=== PATIENT | male | born 1950 | race Caucasian/White ===

== ENCOUNTER → 2016-05-05 | Outpatient (CLI) | payer MEDICARE, OTHER ==
--- NOTE | 2016-05-05 12:38 | US ---
EXAMINATION TYPE: US kidneys/renal and bladder DATE OF EXAM: 05/05/2016 12:26 PM COMPARISON: Prior complete abdominal ultrasound September 17, 2013. CLINICAL HISTORY: N18 Chronic Kidney Disease. EXAM MEASUREMENTS: Right Kidney: 9.5 x 4.4 x 4.1 cm Left Kidney: 9.5 x 4.7 x 4.3 cm TECHNOLOGIST IMPRESSION: Right Kidney: no evidence of hydronephrosis or mass Left Kidney: no evidence of hydronephrosis or mass Bladder: not fully distended Bilateral Jets seen: yes There is no evidence for hydronephrosis at this point in time. No masses are identified on images s aved. The urinary bladder is anechoic. Bilateral ureteral jets are seen. IMPRESSION: No hydronephrosis is evident bilaterally.
== END | disposition home or self-care (01) ==
LOC: RADUSWWP 12:09
PROVIDERS: ATTEND Internal Medicine
DX: N18.9 Chronic kidney disease, unspecified (principal)
CPT/HCPCS: 76770

== ENCOUNTER → 2017-04-19 | Outpatient (CLI) | payer MEDICARE, OTHER ==
--- NOTE | 2017-04-19 10:35 | MR ---
EXAMINATION TYPE: MR knee RT wo con DATE OF EXAM: 04/19/2017 COMPARISON: NONE HISTORY: Right knee pain TECHNIQUE: Multiplanar, multisequence imaging of the right knee is performed without IV contrast. FINDINGS: Metallic device overlying the quadriceps tendon creates susceptibility artifact and obscure s surrounding visualization. LATERAL MENISCUS: Anterior and posterior horns are intact without tear. MEDIAL MENISCUS: There is a longitudinal tear of the posterior horn of the lateral meniscus with exte nt into the meniscal body and posterior root. No parameniscal cyst is seen. There is a 3 mm associate d disc extrusion. Anterior horn is of normal signal and morphology. CRUCIATE LIGAMENTS: The anterior and posterior cruciate ligaments are intact and unremarkable. COLLATERAL LIGAMENTS: The medial collateral ligament and lateral collateral ligament complex are inta ct and unremarkable. EXTENSOR MECHANISM: Visualized quadriceps and patellar tendons are intact in their visualized portion s although as stated above there is only partial visualization of the quadriceps tendon due to suscep tibility artifact.. EFFUSION: No significant suprapatellar joint effusion. POPLITEAL CYST: No popliteal/lao cyst. CARTILAGE: There is generalized cartilaginous thinning of the posterior nonweightbearing surface of t he medial femoral condyle. There is a partial thickness defect of the medial posterior cartilage radha uring 6 mm best seen on coronal images. Partial-thickness tibial condyle defect measures 7 mm at the weightbearing surface centrally on PD fat-sat coronal image 20. Lateral compartment cartilage demonstrates mild signal heterogeneity with no focal defect. Similarly patellar cartilage demonstrates mild signal heterogeneity without focal defect. BONE MARROW SIGNAL: No focal abnormal marrow signal is appreciated. IMPRESSION: 1. Longitudinal tear of the posterior horn of the medial meniscus with 3 mm associated disc extrusion and extends into the body as well as the posterior root without root avulsion. 2. Mild tricompartmental arthrosis with partial-thickness cartilaginous defects of the posterior nonw eightbearing surface of the distal medial femoral condyle measuring 6 mm and partial-thickness tibial condylar defect of the weightbearing surface measuring 7 mm.
== END | disposition home or self-care (01) ==
LOC: RADMRIMAIN 09:43
PROVIDERS: ATTEND Orthopaedic Surgery
DX: S83.241A Other tear of medial meniscus, current injury, right knee, initial encounter (principal); M17.11 Unilateral primary osteoarthritis, right knee; M94.8X6 Other specified disorders of cartilage, lower leg; M25.861 Other specified joint disorders, right knee

== ENCOUNTER → 2017-06-07 | Day surgery (SDC) | payer MEDICARE ==
[2017-06-05 13:26] VITALS: BMI 23.7
--- NOTE | 2017-06-06 16:46 | HP ---
HISTORY AND PHYSICAL REASON FOR ADMISSION: Surgery is scheduled for 06/07/17. HISTORY OF PRESENT ILLNESS: Phoenix Amaro is a 67-year-old patient seen with progressive right knee pain. We discussed options for treatment. He elected to proceed with arthroscopy. Consent was obtained. Medical clearance was provided Dr. Rendon. PAST MEDICAL HISTORY: Hypertension, hypercholesterolemia, angina. PAST SURGICAL HISTORY: Left knee arthroscopy. MEDICATIONS: Amlodipine, aspirin, citalopram, pravastatin, [place], lisinopril. ALLERGIES: None reported. SOCIAL HISTORY: Patient denies current tobacco use. PHYSICAL EXAMINATION: Evaluation of right knee range of motion is 0-120 degrees. Tenderness medial joint line. Positive medial Alexus's. Ligaments stable. Hip rotation without pain. Distal neurovascular exam intact. RADIOGRAPHS: Radiographs of the right knee revealed moderate medial compartment osteoarthritis. MRI of the right knee revealed a medial meniscal tear. IMPRESSION: 1. Internal derangement, right knee with medial meniscal tear. 2. Hypertension. 3. Hypercholesterolemia. PLAN: Right knee arthroscopy with partial meniscectomy and debridement. Surgery scheduled for 06/07/2017. MMODL / IJN: [id number] /
[~2017-06-07] MED LIST: BUPIVACAINE (PF) 0.25% 30 ML VIAL INTRAARTIC ONE; DEXAMETHASONE SOD PHOSPHATE 10 MG/ML 1 ML VIAL IV ONE; HYDROcodone/APAP 7.5-325MG 1 EACH TAB PO ONE; LACTATED RINGERS 1,000 ML IV ONE; LACTATED RINGERS 1,000 ML IV SCH; LIDOCAINE 1% 20 ML VIAL (10MG/ML) FOR IV START INTRADERMA PRN; LIDOCAINE 1% INJ 10MG/ML (20 ML MDV) ONE; MIDAZOLAM 2 MG/2 ML VIAL IV PRN; MIDAZOLAM 2 MG/2 ML VIAL ONE; MORPHINE SULFATE 2 MG/ML SYRINGE IV PRN; ONDANSETRON 4 MG/2 ML VIAL IVP ONE; POTASSIUM CHLORIDE ER 10 MEQ TAB.ER.PRT PO ONE; PROPOFOL 10 MG/ML 20 ML VIAL IV ONE; SCOPOLAMINE 1.5MG/72HR PATCH TRANSDERM ONE; SUCCINYLCHOLINE CHLORIDE VIAL 200 MG/10 ML VIAL IV ONE; ceFAZolin IN SWFI 2 GM/20 ML SYRINGE IVP ONE; ePHEDrine SULFATE/0.9% NACL/PF 50 MG/5 ML SYRINGE IV ONE
[2017-06-07 08:19] VITALS: RESP 16
[2017-06-07 09:47] VITALS: TEMP 97.2
--- NOTE | 2017-06-07 09:54 | P.OP ---
Date of Procedure: 06/07/17 Preoperative Diagnosis: Internal derangement right knee Postoperative Diagnosis: 1. Tear medial and lateral meniscus right knee 2. Grade 3 chondromalacia medial femoral condyle right knee 3. Grade 3 chondromalacia medial tibial plateau right knee 4. Grade 2 chondromalacia patella right knee 5. Reactive synovitis medial and suprapatellar compartments right knee Procedure(s) Performed: 1. Arthroscopic partial medial and lateral meniscectomy right knee 2. Arthroscopic chondroplasty medial femoral condyle right knee 3. Arthroscopic chondroplasty medial tibial plateau right knee 4. Arthroscopic chondroplasty patella right knee 5. Arthroscopic partial synovectomy medial and suprapatellar compartments right knee Anesthesia: GETA, local Surgeon: Kory Colin Estimated Blood Loss (ml): 8 Pathology: none sent Condition: stable Disposition: PACU Indications for Procedure: 67-year-old patient seen with progressive right knee pain. After treatment options were discussed, he elected to proceed with arthroscopy. Operative Findings: See description of procedure Description of Procedure: Patient was taken to the operative suite. Patient underwent a general anesthetic by the department of anesthesia. Patient was given preoperative antibiotics. The right lower extremity was placed in a well-padded arthroscopic leg barnes. The right leg was prepped and draped in the normal sterile orthopedic fashion. A lateral parapatellar and suprapatellar incision was made. Trochars were inserted. Arthroscopy was initiated. Suprapatellar pouch revealed diffuse thick reactive synovitis. The patellofemoral joint appeared articulate congruently. There as grade 2 chondromalacia with some osteochondral tears present. The scope was guided into the medial gutter. No loose bodies or plica were identified. The scope was then guided into the medial compartment. A medial parapatellar incision was made. Trocar inserted followed by probe. There was a complex tear involving the posterior horn medial meniscus which did extend into the midbody. There was an area of grade 3 chondromalacia of the posterior medial aspect tibial plateau with osteochondral tears and diffuse grade 3 chondromalacia of the medial femoral condyle with osteochondral tears. There was reactive synovitis anteriorly. I performed a partial medial meniscectomy down to stable tissue. I performed a chondroplasty of the medial femoral condyle and tibial plateau down to stable tissue. I performed a partial synovectomy. The residual meniscus was stable. The residual osteochondral surface was stable. Scope and probe were then guided into the intercondylar notch. Cruciates were identified, probed and found to be stable. The scope and probe were then guided into lateral compartment. There was a radial tear mid body lateral meniscus. There was some mild grade 1 chondromalacia changes lateral compartment but no osteochondral tears were present. No loose bodies or reactive synovitis. I performed a partial lateral meniscectomy down to stable tissue. The residual meniscus was stable. The scope was in guided back into the suprapatellar compartment. I introduced a motorized shaver into the suprapatellar compartment. I debrided some piecemeal fragments of meniscus I encountered. I performed a chondroplasty of the patella down to stable tissue. I performed a partial synovectomy. The shaver was removed. The residual osteochondral surface of the patella was stable. I took one more look on the entire knee, no residual debris. Instruments were now removed from the joint. The joint was infiltrated with .25% Marcaine. Steri-Strips were applied to the portal sites. Sterile dressings were applied. The patient was placed into a ALISTAIR hose. No tourniquet was utilized. The patient was awakened, transferred to a bed and taken to recovery stable satisfactory condition.
[2017-06-07 11:30] VITALS: BP 115/68; PULSE 66
== END | disposition home or self-care (01) ==
LOC: OR 07:48
PROVIDERS: ATTEND Orthopaedic Surgery
DX: M23.321 Other meniscus derangements, posterior horn of medial meniscus, right knee (principal); M23.361 Other meniscus derangements, other lateral meniscus, right knee; M65.861 Other synovitis and tenosynovitis, right lower leg; M94.261 Chondromalacia, right knee; I25.119 Atherosclerotic heart disease of native coronary artery with unspecified angina pectoris; I10 Essential (primary) hypertension; E78.00 Pure hypercholesterolemia, unspecified; E78.5 Hyperlipidemia, unspecified; I25.2 Old myocardial infarction; F17.210 Nicotine dependence, cigarettes, uncomplicated; N28.9 Disorder of kidney and ureter, unspecified; M79.7 Fibromyalgia; Z79.891 Long term (current) use of opiate analgesic; Z88.8 Allergy status to other drugs, medicaments and biological substances; Z79.82 Long term (current) use of aspirin; Z79.899 Other long term (current) drug therapy
CPT/HCPCS: 29880; J2250; J0330; J1100; J2405; J2001; J2270; J2704; J0690

== ENCOUNTER → 2021-10-05 | Outpatient (CLI) | payer MEDICARE ==
--- NOTE | 2021-10-05 12:58 | US ---
EXAMINATION TYPE: US abdomen complete DATE OF EXAM: 10/05/2021 COMPARISON: Ultrasound abdomen 2014 CLINICAL HISTORY: R10.84 GENERALIZED ABD PAIN. EXAM MEASUREMENTS: Liver Length: 12.7 cm Gallbladder Wall: 0.18 cm Spleen: 9.9 cm Right Kidney: 9.7 x 5.1 x 4.4 cm Left Kidney: 8.7 x 4.8 x 4.5 cm Limited due to gas. Pancreas: Obscured Liver: Appears coarse in echotexture Gallbladder: Appears to be anechoic. Evidence for sonographic Newman's sign: No CBD: Obscured Spleen: Slightly limited due to gas. Right Kidney: Hypoechoic-anechoic area seen at mid: 1.3 x 1.0 x 0.9 cm. Left Kidney: No hydronephrosis or masses seen Appears slightly small in size. Upper IVC: Appears wnl Abd Aorta: Limited evaluation, mid and portions of distal aorta not seen. Iliacs not seen. Proximal aorta appears ectatic measuring 2.85 cm in AP and 2.86 cm in transverse. Suboptimal study. No greater than 3.0 cm AAA. Visualized liver is heterogeneous in appearance without discrete mass or ductal dilatation. No shadowing mobile gallstones. Technologist gresham isoechoic 1.3 cm area felt to reflect lobulated cortex midpole level right kidney. No hydronephrosis in either kid rhett. Spleen normal in size. IMPRESSION: Suboptimal study without acute findings identified. Suboptimal evaluation of pancreas not ed.
== END | disposition home or self-care (01) ==
LOC: RADUSWWP 10:52
PROVIDERS: ATTEND Internal Medicine
DX: R10.84 Generalized abdominal pain (principal)
CPT/HCPCS: 76700

== ENCOUNTER 2021-11-03 07:59 | Day surgery (SDC) | payer MEDICARE ==
[~2021-11-03 07:59] MED LIST changes: -BUPIVACAINE (PF) 0.25% 30 ML VIAL INTRAARTIC ONE; -DEXAMETHASONE SOD PHOSPHATE 10 MG/ML 1 ML VIAL IV ONE; -HYDROcodone/APAP 7.5-325MG 1 EACH TAB PO ONE; -LACTATED RINGERS 1,000 ML IV ONE; -LIDOCAINE 1% 20 ML VIAL (10MG/ML) FOR IV START INTRADERMA PRN; -LIDOCAINE 1% INJ 10MG/ML (20 ML MDV) ONE; -MIDAZOLAM 2 MG/2 ML VIAL IV PRN; -MIDAZOLAM 2 MG/2 ML VIAL ONE; -MORPHINE SULFATE 2 MG/ML SYRINGE IV PRN; -ONDANSETRON 4 MG/2 ML VIAL IVP ONE; -POTASSIUM CHLORIDE ER 10 MEQ TAB.ER.PRT PO ONE; -PROPOFOL 10 MG/ML 20 ML VIAL IV ONE; -SCOPOLAMINE 1.5MG/72HR PATCH TRANSDERM ONE; -SUCCINYLCHOLINE CHLORIDE VIAL 200 MG/10 ML VIAL IV ONE; -ceFAZolin IN SWFI 2 GM/20 ML SYRINGE IVP ONE; -ePHEDrine SULFATE/0.9% NACL/PF 50 MG/5 ML SYRINGE IV ONE
[2021-11-03 08:31] VITALS: TEMP 97.9
--- NOTE | 2021-11-03 09:14 | P.GSHP ---
History of Present Illness H&P Date: 11/03/21 Chief Complaint: Screening colonoscopy This a 71-year-old male presents today for screening colonoscopy. Patient denies a significant GI complaints. Past Medical History Past Medical History: Coronary Artery Disease (CAD), Fibromyalgia, Hyperlipidemia, Hypertension, Myocardial Infarction ([place]), Osteoarthritis (OA), Renal Disease Additional Past Medical History / Comment(s): right sided abd. pain recently, c onstipation, decreased kidney function, chronic back pain, leg pain Last Myocardial Infarction Date:: 2002 History of Any Multi-Drug Resistant Organisms: None Reported Past Surgical History: Adenoidectomy, Heart Catheterization With Stent, Tonsillectomy Additional Past Surgical History / Comment(s): L knee surgery Past Anesthesia/Blood Transfusion Reactions: No Reported Reaction Date of Last Stent Placement:: 2002 Past Psychological History: No Psychological Hx Reported Smoking Status: Current every day smoker Past Alcohol Use History: None Reported Additional Past Alcohol Use History / Comment(s): Smokes 2 cigars/day. Past Drug Use History: Marijuana Additional Drug Use History / Comment(s): Smokes marijuana daily - Past Family History Mother Family Medical History: No Reported History Medications and Allergies Home Medications Medication Instructions Recorded Confirmed Type Aspirin 81 mg PO DAILY 06/05/17 11/02/21 History Citalopram Hydrobromide [CeleXA] 40 mg PO DAILY 06/05/17 11/02/21 History Ergocalciferol (Vitamin D2) 50,000 unit PO Q7D 06/05/17 11/02/21 History [Vitamin D2] Lisinopril/Hydrochlorothiazide 1 tab PO DAILY 06/05/17 11/02/21 History [Zestoretic 20-12.5] Nitroglycerin Sl Tabs [Nitrostat] 0.4 mg SUBLINGUAL Q5M PRN 06/05/17 11/02/21 History Pravastatin Sodium [Pravachol] 20 mg PO DAILY 06/05/17 11/02/21 History amLODIPine [Norvasc] 10 mg PO DAILY 06/05/17 11/02/21 History Docusate [Colace] 100 mg PO BID 11/02/21 11/02/21 History Ezetimibe [Zetia] 10 mg PO DAILY 11/02/21 11/02/21 History Ferrous Sulfate [Feosol] 325 mg PO DAILY 11/02/21 11/02/21 History HYDROcodone/APAP 10-325MG [[place] 1 tab PO Q6HR PRN 11/02/21 11/02/21 History 10-325] Pantoprazole [Protonix] 40 mg PO DAILY 11/02/21 11/02/21 History Allergies Allergy/AdvReac Type Severity Reaction Status Date / Time beta blockers Allergy Nausea & Uncoded 11/02/21 11:04 Vomiting, decreased Heart rate Surgical - Exam Vital Signs Temp Pulse Resp BP Pulse Ox 97.9 F 50 L 20 133/80 99 11/03/21 08:30 11/03/21 08:30 11/03/21 08:30 11/03/21 08:30 11/03/21 08:30 - General well developed, well nourished, no distress - Eyes PERRL - ENT normal pinna - Neck no masses - Respiratory normal expansion - Cardiovascular Rhythm: regular - Abdomen Abdomen: soft, non tender Assessment and Plan Assessment: We'll perform screening colonoscopy
[2021-11-03] MEDS ORDERED: GLUCAGON 1 MG/ML VIAL ONE (09:16)
[2021-11-03] MEDS ORDERED: PROPOFOL 10 MG/ML 20 ML VIAL IV ONE (09:16)
--- NOTE | 2021-11-03 09:36 | P.OP ---
Date of Procedure: 11/03/21 Preoperative Diagnosis: Screening colonoscopy Postoperative Diagnosis: Diverticulosis Tortuous colon Rectal biopsy Procedure(s) Performed: Colonoscopy Anesthesia: MAC Surgeon: Mark Rush Pathology: other (rectl polyp) Description of Procedure: The patient's placed on the endoscopy table in the lateral position. He received IV sedation. Digital rectal exam was performed which revealed no abnormalities. The prostate was symmetrical without nodules. The flexible colonoscope was then placed patient anus passed the rectum. In the rectum there was a small sessile polyp. This is removed with the cold forcep. The scope was then advanced. Scope advanced beyond the left colon secondary to tortuosity valve. This point scope withdrawn. A pediatric colonoscope was placed patient anus and passed throughout the colon however it this pediatric colonoscope could not be passed due to tortuosity the valve. Scope was withdrawn. The visualized ascending colon appeared normal. In the sigmoid colon there was diverticular changes noted. The scope was brought back the rectum and this appeared normal. Scope withdrawn for patient. Patient was scheduled for a barium enema to evaluate the proximal colon.
[2021-11-03 09:43] VITALS: RESP 18
[2021-11-03 10:00] VITALS: BP 119/67; PULSE 50
== END 2021-11-03 10:13 | disposition home or self-care (01) ==
LOC: ORWHC2ENDO 07:59
PROVIDERS: ATTEND Surgery
DX: Z12.11 Encounter for screening for malignant neoplasm of colon (principal); K57.30 Diverticulosis of large intestine without perforation or abscess without bleeding; K63.89 Other specified diseases of intestine; I25.10 Atherosclerotic heart disease of native coronary artery without angina pectoris; Z95.5 Presence of coronary angioplasty implant and graft; E78.5 Hyperlipidemia, unspecified; I25.2 Old myocardial infarction; I12.9 Hypertensive chronic kidney disease with stage 1 through stage 4 chronic kidney disease, or unspecified chronic kidney disease; N18.9 Chronic kidney disease, unspecified; M79.7 Fibromyalgia; Z88.8 Allergy status to other drugs, medicaments and biological substances; F17.290 Nicotine dependence, other tobacco product, uncomplicated; Z79.82 Long term (current) use of aspirin; Z79.899 Other long term (current) drug therapy
CPT/HCPCS: 88305; 45380; J1610; J2704

== ENCOUNTER → 2021-11-14 | Outpatient (CLI) | payer MEDICARE ==
--- NOTE | 2021-11-14 12:29 | FL ---
EXAMINATION TYPE: FL barium enema DATE OF EXAM: 11/14/2021 COMPARISON: NONE HISTORY: Incomplete colonoscopy with polyp and biopsies taken. TECHNIQUE: A double contrast barium enema study is performed. A total of 1.09 minutes of fluoroscop ic time was utilized during procedure. Patient given 1000 cc polibar barium. FINDINGS: Diesel Engine I Pipe Fitter view of the abdomen shows overall non-obstructive bowel gas pattern. No evidence of any mass or polyp, obstructing or constricting lesion throughout the colon. Scattered colonic diverticulosis most prominently involving the sigmoid colon. There is some tortuosity of the sigmoid colon and splenic flexure. Appendix was filled and appeared normal on post evacuation imaging. IMPRESSION: Scattered colonic diverticulosis. No visualized obstructing mass.
== END | disposition home or self-care (01) ==
LOC: RADFLMAIN 08:50
PROVIDERS: ATTEND Surgery
DX: K57.30 Diverticulosis of large intestine without perforation or abscess without bleeding (principal)
CPT/HCPCS: 74270

== ENCOUNTER → 2021-12-07 | Outpatient (CLI) | payer MEDICARE ==
[2021-12-07 18:17] LABS: Basophils # (A) 0.09 X 10*3/uL (0.00-0.10); Basophils % (A) 1.4 %; Eosinophils % (A) 10.8 %; HCT 39.8 % (39.6-50.0); HGB 12.7 g/dL (13.0-17.0); Immature Grans, Automated 0.3 %; Lymphocytes # (A) 1.89 X 10*3/uL (0.90-5.00); Lymphocytes % (A) 29.1 %; MCHC 31.9 g/dL (32.0-37.0); MCV 94.1 fL (80.0-97.0); Mean Platelet Volume 11.1 fL (9.5-12.2); Monocytes # (A) 0.59 X 10*3/uL (0.20-1.00); Monocytes % (A) 9.1 %; NRBC Per 100 WBC 0 /100 WBCS (0.0-0.0); Neutrophils # (A) 3.21 X 10*3/uL (1.80-7.70); Neutrophils % (A) 49.3 %; Platelet Count 313 X 10*3/uL (140-440); RBC 4.23 X 10*6/uL (4.40-5.60); RDW 11.8 % (11.5-14.5)
[2021-12-07 18:34] LABS: Anion Gap 9.3 mmol/L (10.00-18.00); Carbon Dioxide 27.8 mmol/L (20.0-27.5); Potassium 5.3 mmol/L (3.5-5.5)
== END | disposition home or self-care (01) ==
LOC: LABPAT 11:01
PROVIDERS: ATTEND Surgery
DX: Z01.818 Encounter for other preprocedural examination (principal); Z01.812 Encounter for preprocedural laboratory examination; K57.32 Diverticulitis of large intestine without perforation or abscess without bleeding
CPT/HCPCS: 80051; 85025; 93005

== ENCOUNTER 2021-12-14 10:35 | Inpatient (IN) | payer MEDICARE ==
[2021-12-13 10:10] VITALS: BMI 22.5
[~2021-12-14 10:35] MED LIST changes: +ACETAMINOPHEN TAB 500 MG TAB PO PRN; +DEXAMETHASONE SOD PHOSPHATE 4 MG/ML 1 ML VIAL IV ONE; +HEPARIN SODIUM,PORCINE/PF 5,000 UNIT/0.5 ML SYRINGE SQ PRN; +HYDROmorphone 0.5 MG/0.5 ML SYRINGE IVP PRN; -LACTATED RINGERS 1,000 ML IV SCH; +LIDOCAINE 1% (10MG/ML) FOR IV START INTRADERMA PRN; +ONDANSETRON 4 MG/2 ML VIAL IVP ONE; +metroNIDAZOLE-NS PMX 500 MG in SALINE 1 100ML.BAG IVPB PRN
[2021-12-14] MEDS ORDERED: ALVIMOPAN 12 MG CAPSULE PO ONE (11:43)
[2021-12-14] MEDS ORDERED: MELOXICAM 7.5 MG TAB PO ONE (11:43)
[2021-12-14] MEDS: LACTATED RINGERS 1,000 ML IV SCH (11:52)
--- NOTE | 2021-12-14 11:55 | P.GSHP ---
History of Present Illness H&P Date: 12/14/21 Chief Complaint: Diverticulitis Is a 71-year-old male with history of diverticula is. Patient resents today for low anterior section. Past Medical History Past Medical History: Coronary Artery Disease (CAD), Fibromyalgia, Hyperlipidem ia, Hypertension, Myocardial Infarction ([place]), Osteoarthritis (OA), Renal Disease Additional Past Medical History / Comment(s): diverticulitis,right sided abd. pain, constipation, decreased kidney function, chronic back pain, leg pain Last Myocardial Infarction Date:: 2002 History of Any Multi-Drug Resistant Organisms: None Reported Past Surgical History: Adenoidectomy, Heart Catheterization With Stent, Tonsillectomy Additional Past Surgical History / Comment(s): L knee surgery Past Anesthesia/Blood Transfusion Reactions: No Reported Reaction Additional Past Anesthesia/Blood Transfusion Reaction / Comment(s): no hx blood transfusion Date of Last Stent Placement:: 2002 Smoking Status: Current every day smoker - Past Family History Mother Family Medical History: No Reported History Medications and Allergies Home Medications Medication Instructions Recorded Confirmed Type Aspirin 81 mg PO DAILY 06/05/17 12/13/21 History Citalopram Hydrobromide [CeleXA] 40 mg PO QAM 06/05/17 12/13/21 History Ergocalciferol (Vitamin D2) 50,000 unit PO Q7D 06/05/17 12/14/21 History [Vitamin D2] Lisinopril/Hydrochlorothiazide 1 tab PO QAM 06/05/17 12/13/21 History [Zestoretic 20-12.5] Nitroglycerin Sl Tabs [Nitrostat] 0.4 mg SUBLINGUAL Q5M PRN 06/05/17 12/13/21 History Pravastatin Sodium [Pravachol] 20 mg PO DAILY 06/05/17 12/14/21 History amLODIPine [Norvasc] 10 mg PO HS 06/05/17 12/14/21 History Docusate [Colace] 100 mg PO BID 11/02/21 12/14/21 History Ezetimibe [Zetia] 10 mg PO DAILY 11/02/21 12/14/21 History Ferrous Sulfate [Feosol] 325 mg PO DAILY 11/02/21 12/14/21 History HYDROcodone/APAP 10-325MG [Erin 1 tab PO Q6HR PRN 11/02/21 12/14/21 History 10-325] Pantoprazole [Protonix] 40 mg PO QAM 11/02/21 12/14/21 History Allergies Allergy/AdvReac Type Severity Reaction Status Date / Time beta blockers Allergy Nausea & Uncoded 12/14/21 11:11 Vomiting, decreased Heart rate to rate of 35 Surgical - Exam Vital Signs Temp Pulse Resp BP Pulse Ox 97.0 F L 69 18 144/84 98 12/14/21 11:25 12/14/21 11:25 12/14/21 11:25 12/14/21 11:25 12/14/21 11:25 - General well developed, well nourished, no distress - Eyes PERRL - ENT normal pinna - Neck no masses - Respiratory normal expansion - Cardiovascular Rhythm: regular - Abdomen Mild left lower quadrant pain Abdomen: soft Assessment and Plan Assessment: History of diverticulitis. We'll perform low anterior resection. Patient aware the risk of anastomotic leak, bleeding, infection and possible colostomy.
[2021-12-14] MEDS ORDERED: MIDAZOLAM 2 MG/2 ML VIAL IVP ONE (12:13)
[2021-12-14] MEDS ORDERED: fentaNYL (PF) 50 MCG/ML 2 ML AMP IVP ONE (12:13)
[2021-12-14] MEDS ORDERED: ROCURONIUM 10 MG/ML (5 ML VIAL) IV ONE (12:34)
[2021-12-14] MEDS ORDERED: GLYCOPYRROLATE 0.2 MG/ML 2 ML VIAL ONE (12:34)
[2021-12-14] MEDS ORDERED: fentaNYL (PF) 50 MCG/ML 2 ML AMP ONE (12:34)
[2021-12-14] MEDS ORDERED: SUCCINYLCHOLINE CHLORIDE 200 MG/10 ML VIAL IV ONE (12:34)
[2021-12-14] MEDS ORDERED: MIDAZOLAM 2 MG/2 ML VIAL ONE (12:34)
[2021-12-14] MEDS ORDERED: HYDROmorphone (PF) 1 MG/ML ONE (12:34)
[2021-12-14] MEDS ORDERED: NEOSTIGMINE 1 MG/ML 10 ML VIAL ONE (12:34)
[2021-12-14] MEDS ORDERED: ePHEDrine 50 MG/ML 1 ML VIAL ONE (12:34)
[2021-12-14] MEDS ORDERED: HEPARIN SODIUM,PORCINE 5,000 UNIT/ML 1 ML VIAL ONE (12:34)
[2021-12-14] MEDS ORDERED: PROPOFOL 10 MG/ML 20 ML VIAL IV ONE (12:34)
[2021-12-14] MEDS ORDERED: NALOXONE 0.4 MG/ML 1 ML VIAL IV PRN (12:48)
--- NOTE | 2021-12-14 13:11 | P.ANPRN ---
Procedure Note - Anesthesia - Epidural/Spinal Epidural Continuous Time Out Performed: Yes Date of Procedure: 12/14/21 Procedure Start Time: 12:16 Procedure Stop Time: 12:24 Location of Patient: PreOp Indication: Acute Post-Operative Pain, Requested by Surgeon Sedation Type: Sedate with meaningful contact maintained Preparation: Sterile Dressing Number of Attempts: 1 Position: Sitting Catheter Depth at Skin (cm): 10 Catheter: Indwelling Needle Guage: 18, 21 Injectate: Test Dose Lidocaine1.5% w/1:200,000 epi Blood Aspirated: No Pain Paresthesia on Injection Noted: No Events: Uneventful and Well Tolerated (RUPALI to NS.Epidural space at 4 cm depth, catheter taped at 10 cm.)
--- NOTE | 2021-12-14 13:30 | P.OP ---
Date of Procedure: 12/14/21 Preoperative Diagnosis: Diverticulitis Postoperative Diagnosis: Diverticulitis Procedure(s) Performed: Low anterior resection Anesthesia: TELMA Surgeon: Mark Rush Estimated Blood Loss (ml): 25 Pathology: other (Sigmoid colon) Condition: stable Disposition: PACU Description of Procedure: DESCRIPTION OF PROCEDURE: The patient was placed on the operating table in the supine position. Patient received a general anesthesia. Patient was then placed in the dorsal lithotomy position. The patients abdomen was prepped and draped in the usual sterile fashion. Through a low midline incision, the abdomen was entered. The Ernesto wound protector was used. The Bookwalter retractor was placed in the wound. The stomach appeared normal. The small bowel appeared normal. The liver appeared normal. The right colon and transverse colon appeared normal. On the left colon, there was an extensive diverticulosis noted. The sigmoid colon was then mobilized by dividing the white line of Toldt with electrocautery. At this point, the proximal sigmoid colon was transected with a GI stapler after a window had been made in the mesentery. The distal sigmoid colon was then dissected. Mesentery was taken down with the Enseal device. The rectum was then transected with the contour stapler. Next, a enterotomy is made in the proximal colon. The anvil for the EEA stapler was placed into the colon. The colon was then transected with the SARBJIT stapler. And then the anvil spike was driven through the staple line. Using the Enseal device the mesentery the bowel was divided and the specimen sent to pathology. The EEA stapler device was then placed in the patient'ss anus and passed into the rectum. The nail for the EEA was then brought out through the distal rectum and then attached to the anvil. The EEA stapler device was then fired. The anastomosis was inspected. There were 2 good donuts of tissue removed from the EEA stapler. The anastomosis was then tested under water and there was no air leak seen. At this point the abdomen was then irrigated. There was no bleeding seen. The patient had a pelvic appendix. His HIDA perform an incidental appendectomy. The mesentery of the appendix was divided with the Enseal device. And then using the GI stapler Was performed. The omentum was visualized. There appeared to be nonviable portion of omentum. This was decided with the Enseal device. This was sent to pathology. The fascia was closed clean instruments. The fascia was then closed with double stranded #1 PDS. The skin was closed with silvino. The patient tolerated the procedure well.
[2021-12-14] MEDS ORDERED: LACTATED RINGERS 1,000 ML IV ONE (13:31)
[2021-12-14] MEDS: ROPIVACAINE 250 MG, HYDROMORPHONE (PF) 5 MG in SODIUM CHLORIDE 0.9% 200 ML EPIDURAL PRN ×2 (15:07→16:26)
--- NOTE | 2021-12-15 06:48 | P.PN ---
Progress Note - Text Progress Note Date: 12/15/21 The patient has a lumbar epidural catheter for postoperative pain control. Postop day #( 1 ), status post Low anterior resection The patient is doing well. The pain is mild but more on the right side of the midline. The patient has slight numbness in the left thigh. It seems that he has 1 sided block. I pulled the epidural catheter by 1 cm to try to equalize the spread of the local anesthetic on both sides of midline There are no signs of infection around the epidural catheter skin entry site. We will continue the epidural infusion of local anesthetics as per protocol.
[2021-12-15] MEDS: LACTATED RINGERS 1,000 ML IV SCH (07:48)
[2021-12-15] MEDS ORDERED: DEXTROSE 5%-0.45% NACL 1,000 ML IV SCH (08:00)
[2021-12-15 09:14] LABS: Basophils % (A) 0 %; Eosinophils % (A) 0 %; HGB 11.9 gm/dL (13.0-17.5); Lymphocytes % (A) 7 %; MCHC 31.4 g/dL (31.0-37.0); MCV 95.8 fL (80.0-100.0); Mean Platelet Volume 7.8; Monocytes % (A) 7 %; Neutrophils # (A) 12.3 k/uL (1.3-7.7); Neutrophils % (A) 83 %; Platelet Count 244 k/uL (150-450); RBC 3.97 m/uL (4.30-5.90); RDW 11.8 % (11.5-15.5); WBC 14.8 k/uL (3.8-10.6)
[2021-12-15] MEDS: HEPARIN SODIUM,PORCINE/PF 5,000 UNIT/0.5 ML SYRINGE SQ SCH ×2 (09:29→20:13)
[2021-12-15] MEDS: FAMOTIDINE 20 MG/2 ML VIAL IV SCH (09:29)
[2021-12-15 09:31] LABS: African American GFR (CKD) 51 (>60 ml/min/1.73 sqM); Anion Gap 8 mmol/L; Blood Urea Nitrogen 20 mg/dL (9-20); Calcium 8.5 mg/dL (8.4-10.2); Carbon Dioxide 24 mmol/L (22-30); Chloride 105 mmol/L (98-107); Glucose 111 mg/dL (74-99); Non-African American GFR(CKD) 44 (>60 ml/min/1.73 sqM); Potassium 4.5 mmol/L (3.5-5.1); Sodium 137 mmol/L (137-145)
[2021-12-15 09:48] LABS: Glucose,Whole Blood 115 mg/dL (70-110)
[2021-12-15] MEDS: ONDANSETRON 4 MG/2 ML VIAL IVP PRN ×2 (10:01→18:17)
--- NOTE | 2021-12-15 11:50 | P.PN ---
Subjective Progress Note Date: 12/15/21 CHIEF COMPLAINT: Diverticulitis HISTORY OF PRESENT ILLNESS: Postoperative day #1 status post lower anterior resection. Patient has epidural in place. He reports that his pain is controlled. He does report pain at incision site. He is lying in bed comfortably. Denies any nausea vomiting. No bowel activity. Afebrile. WBC 14.8 hemoglobin 11.9 and platelets 244 creatinine 1.58 potassium 4.5 PHYSICAL EXAM: VITAL SIGNS: Reviewed. GENERAL: Well-developed in no acute distress. HEENT: No sclera icterus. Extraocular movements grossly intact. Moist buccal mucosa. Head is atraumatic, normocephalic. ABDOMEN: Soft. Nondistended. minimal pain at incision site. Surgical dressing clean dry and intact NEUROLOGIC: Alert and oriented. Cranial nerves II through XII grossly intact. ASSESSMENT: 1. Diverticulitis status post lower anterior resection PLAN: -Keep patient nothing by mouth except for ice chips -Change abdominal dressing to OptiFoam silver -Continue epidural for pain control -Continue Cohen catheter -Continue IV fluids -Incentive spirometer ordered -Encouraged patient to increase activity level -GI prophylaxis Pepcid and DVT prophylaxis subcu heparin Physician Relocation Specialist note has been reviewed by physician. Signing provider agrees with the documented findings, assessment, and plan of care. Objective - Vital Signs Vital signs: Vital Signs Temp 97.8 F 12/15/21 07:58 Pulse 69 12/15/21 07:58 Resp 17 12/15/21 07:58 BP 106/62 12/15/21 07:58 Pulse Ox 96 12/15/21 07:58 FiO2 Intake & Output 12/14/21 12/15/21 12/15/21 18:59 06:59 18:59 Intake Total 1550 119.583 Output Total 185 100 Balance 1365 -100 119.583 Weight 71.2 kg Intake: IV 1550 Intake, IV Titration 119.583 Amount Ropivacaine 250 mg 119.583 Hydromorphone (Pf) 5 mg In Sodium Chloride 0.9% 200 ml @ Per Protocol EPIDURAL .Q0M PRN Rx#: [id number] Output: Urine 160 100 Estimated Blood Loss 25 Other: Voiding Method Indwelling Catheter Indwelling Catheter - Labs CBC & Chem 7: 12/15/21 08:56 12/15/21 08:56 Labs: Abnormal Lab Results - Last 24 Hours (Table) 12/15/21 12/15/21 12/15/21 Range/Units 08:56 08:56 09:46 WBC 14.8 H (3.8-10.6) k/uL RBC 3.97 L (4.30-5.90) m/uL Hgb 11.9 L (13.0-17.5) gm/dL Hct 38.0 L (39.0-53.0) % Neutrophils # 12.3 H (1.3-7.7) k/uL Creatinine 1.58 H (0.66-1.25) mg/dL Glucose 111 H (74-99) mg/dL POC Glucose (mg/dL) 115 H (70-110) mg/dL
[2021-12-15] MEDS: ROPIVACAINE 250 MG, HYDROMORPHONE (PF) 5 MG in SODIUM CHLORIDE 0.9% 200 ML EPIDURAL PRN (14:13)
[2021-12-15] MEDS: D5-0.45% NACL WITH KCL 20MEQ/L 1,000 ML IV SCH (14:14)
[2021-12-15] MEDS ORDERED: NITROGLYCERIN SL TABS 0.4 MG TAB SUBLINGUAL PRN (16:47)
[2021-12-15] MEDS: DOCUSATE 100 MG CAP PO SCH (20:13)
[2021-12-15] MEDS: amLODIPine 10 MG TAB PO SCH (20:13)
[2021-12-16] MEDS: D5-0.45% NACL WITH KCL 20MEQ/L 1,000 ML IV SCH ×3 (01:20→21:26)
[2021-12-16] MEDS: LACTATED RINGERS 1,000 ML IV SCH (06:07)
[2021-12-16] MEDS: FAMOTIDINE 20 MG/2 ML VIAL IV SCH (07:50)
[2021-12-16] MEDS: HEPARIN SODIUM,PORCINE/PF 5,000 UNIT/0.5 ML SYRINGE SQ SCH ×2 (07:50→20:36)
[2021-12-16] MEDS: CITALOPRAM HYDROBROMIDE 20 MG TAB PO SCH (07:51)
[2021-12-16] MEDS: FERROUS SULFATE 325 MG TAB PO SCH (07:51)
[2021-12-16] MEDS: DOCUSATE 100 MG CAP PO SCH ×2 (07:52→20:34)
[2021-12-16] MEDS: PANTOPRAZOLE 40 MG TABLET PO SCH (07:52)
[2021-12-16] MEDS: LISINOPRIL-HCTZ 20-12.5 MG 1 EACH TAB PO SCH (07:53)
--- NOTE | 2021-12-16 08:20 | P.PN ---
Progress Note - Text Date: 12/16/2021 Time: 07:13 The patient is status post, low anterior resection, postoperative day number 2. The patient has no complaints of nausea vomiting or headache. The patient does not complain of any lower extremity numbness or weakness. The epidural is running at 6 mL per hour. VAS 1-10. The epidural will be maintained and ad justed as needed.
[2021-12-16] MEDS ORDERED: ERGOCALCIFEROL 1,250 MCG (50,000 IU) CAPSULE PO SCH (09:00)
[2021-12-16] MEDS ORDERED: EZETIMIBE 10 MG TAB PO SCH (09:00)
[2021-12-16] MEDS ORDERED: PRAVASTATIN SODIUM 20 MG TAB PO SCH (09:00)
[2021-12-16] MEDS ORDERED: ASPIRIN 81 MG PO SCH (09:00)
[2021-12-16 09:52] LABS: African American GFR (CKD) 59 (>60 ml/min/1.73 sqM); Anion Gap 6 mmol/L; Blood Urea Nitrogen 14 mg/dL (9-20); Calcium 8.3 mg/dL (8.4-10.2); Carbon Dioxide 27 mmol/L (22-30); Chloride 106 mmol/L (98-107); Glucose 107 mg/dL (74-99); Non-African American GFR(CKD) 51 (>60 ml/min/1.73 sqM); Potassium 4.6 mmol/L (3.5-5.1); Sodium 139 mmol/L (137-145)
[2021-12-16 10:16] LABS: Basophils % (A) 0 %; Eosinophils # (A) 0.3 k/uL (0-0.7); Eosinophils % (A) 4 %; HCT 37.8 % (39.0-53.0); HGB 12.4 gm/dL (13.0-17.5); Lymphocytes # (A) 1.5 k/uL (1.0-4.8); Lymphocytes % (A) 16 %; MCH 31.6 pg (25.0-35.0); MCHC 32.8 g/dL (31.0-37.0); MCV 96.4 fL (80.0-100.0); Mean Platelet Volume 8.6; Monocytes # (A) 0.8 k/uL (0-1.0); Monocytes % (A) 8 %; Neutrophils # (A) 6.8 k/uL (1.3-7.7); Neutrophils % (A) 71 %; Platelet Count 229 k/uL (150-450); RBC 3.92 m/uL (4.30-5.90); RDW 12.1 % (11.5-15.5); WBC 9.6 k/uL (3.8-10.6)
--- NOTE | 2021-12-16 13:06 | CDI ---
Documentation Clarification Form Date: 12/16/2021 12:57:33 PM From: Shira ConnerPerezKACY haley, CCDS Admit Date: 12/14/2021 10:39:00 AM Patient Name: Phoenix Amaro Visit Number: [id number] Discharge Date: ATTENTION: The Clinical Documentation Specialists (CDI) and [facility] Coding Staff appreciate your assistance in clarifying documentation. Please respond to the clarification below the line at the bottom and electronically sign. The CDI & [facility] Coding staff will review the response and follow-up if needed. Please note: Queries are made part of the Legal Health Record. If you have any questions, please contact the author of this message via ITS. Dr. Mark Rush: The following is documented in the 12/14 Surgeon's History & Physical under Past Medical History: Decreased kidney function. Additional clarification regarding the patient's history of decreased kidney function is requested. History/Risk Factors per the H/P: CAD , MO and stent, Fibromyalgia, Hyperlipidemia, Hypertension, Osteoarthritis, Renal Disease: decreased kidney function, Constipation, Chronic Back Pain, Leg pain. Clinical Indicators: Patient presented for elective Low Anterior Resection for Diverticulitis. 12/14 Procedure: Low Anterior Resection w/general anesthesia. LAB: BUN: 12/15: 20. 12/16: 14. Creatinine: 12/15: 1.58. 12/16: 1.41 GFR: 12/15: 44. 12/16: 51 Historical GFR: 09/04/2013: 58 Treatment 12/14: PO Tylenol 1,000 mg x1/prn preop, IV Cefazolin 50 mls @ 100 mls/hr x1/prn preop, Heparin 5,000 units sq/x1/prn preop, IV Flagyl 100 mls @ 100 mls/hr x1/pre preop, IV Decadron 4 mg x1, IV Zofran 4 mg x1, IV Dilaudid 0.5 mg q5M/prn. Please clarify the Stage of the CKD, if known: [ ] CKD Stage 3 (GFR 30-59) [ ] CKD Stage 3a (GFR 45-59) [ ] CKD Stage 3b (GFR 30-44) [ ] Other, please specify [ ] Unable to determine (Template Last revised: May 2020) MTDD
--- NOTE | 2021-12-16 13:21 | P.PN ---
Subjective Progress Note Date: 12/16/21 CHIEF COMPLAINT: Diverticulitis HISTORY OF PRESENT ILLNESS: Postoperative day #2 status post lower anterior resection. Patient has epidural in place. He reports that his pain is controlled. He did report some mild nausea this morning has improved. Denies any bowel activity. He is nothing by mouth. Afebrile. WBC is down from 14.8- 9.6 hemoglobin 12.4 creatinine 1.41 Patient seen and examined with Dr. Rush PHYSICAL EXAM: VITAL SIGNS: Reviewed. GENERAL: Well-developed in no acute distress. HEENT: No sclera icterus. Extraocular movements grossly intact. Moist buccal mucosa. Head is atraumatic, normocephalic. ABDOMEN: Soft. Nondistended. minimal pain at incision site. Surgical carmelo ssing clean dry and intact NEUROLOGIC: Alert and oriented. Cranial nerves II through XII grossly intact. ASSESSMENT: 1. Diverticulitis status post lower anterior resection PLAN: -Keep patient nothing by mouth except for ice chips -Continue epidural for pain control -Continue Cohen catheter -Continue IV fluids -Medical service on consult for medical management -Incentive spirometer ordered -Encouraged patient to increase activity level -GI prophylaxis Pepcid and DVT prophylaxis subcu heparin Physician Rubber Block Layer note has been reviewed by physician. Signing provider agrees with the documented findings, assessment, and plan of care. Objective - Vital Signs Vital signs: Vital Signs Temp 98.4 F 12/16/21 08:00 Pulse 59 L 12/16/21 08:00 Resp 17 12/16/21 08:00 BP 124/76 12/16/21 08:00 Pulse Ox 93 L 12/16/21 08:00 FiO2 Intake & Output 12/15/21 12/16/21 12/16/21 18:59 06:59 18:59 Intake Total 1647.783 Output Total 400 1625 650 Balance 1247.783 -1625 -650 Intake: Intake, IV Titration 1647.783 Amount Dextrose 5%-0.45% NaCl 1, 1500 000 ml @ 125 mls/hr IV . Q8H [facility] Rx#:[id number] Ropivacaine 250 mg 147.783 Hydromorphone (Pf) 5 mg In Sodium Chloride 0.9% 200 ml @ Per Protocol EPIDURAL .Q0M PRN Rx#: [id number] Output: Urine 400 1625 650 Uretheral (Cohen) 650 Other: Voiding Method Indwelling Catheter Indwelling Catheter Indwelling Catheter - Labs CBC & Chem 7: 12/16/21 09:28 12/16/21 09:28 Labs: Abnormal Lab Results - Last 24 Hours (Table) 12/16/21 12/16/21 Range/Units 09: 09:28 RBC 3.92 L (4.30-5.90) m/uL Hgb 12.4 L (13.0-17.5) gm/dL Hct 37.8 L (39.0-53.0) % Creatinine 1.41 H (0.66-1.25) mg/dL Glucose 107 H (74-99) mg/dL Calcium 8.3 L (8.4-10.2) mg/dL
--- NOTE | 2021-12-16 13:35 | P.CONS ---
History of Present Illness - Reason for Consult Consult date: 12/15/21 - History of Present Illness Phoenix Amaro, he is a 71-year-old male who was admitted to [facility] by Dr. Rush, and underwent low anterior resection of the sigmoid colon due to diverticulitis. Patient was admitted to medical floor postoperatively. Medical consultation was requested for management while hospitalized. Patient has a known history of hypertension, hyperlipidemia, osteoarthritis, coronary artery disease with history of myocardial infarction in the past, history of diverticulosis with diverticulitis, and history of chronic back pain. Past Medical History Past Medical History: Coronary Artery Disease (CAD), Fibromyalgia, Hyperlipidemia, Hypertension, Myocardial Infarction (MA), Osteoarthritis (OA), Renal Disease Additional Past Medical History / Comment(s): diverticulitis,right sided abd. pain, constipation, decreased kidney function, chronic back pain, leg pain Last Myocardial Infarction Date:: 2002 History of Any Multi-Drug Resistant Organisms: None Reported Past Surgical History: Adenoidectomy, Heart Catheterization With Stent, To nsillectomy Additional Past Surgical History / Comment(s): L knee surgery Past Anesthesia/Blood Transfusion Reactions: No Reported Reaction Additional Past Anesthesia/Blood Transfusion Reaction / Comm: no hx blood transfusion Date of Last Stent Placement:: 2002 Smoking Status: Current every day smoker - Past Family History Mother Family Medical History: No Reported History Medications and Allergies Home Medications Medication Instructions Recorded Confirmed Type Aspirin 81 mg PO DAILY 06/05/17 12/13/21 History Citalopram Hydrobromide [CeleXA] 40 mg PO QAM 06/05/17 12/13/21 History Ergocalciferol (Vitamin D2) 50,000 unit PO Q7D 06/05/17 12/14/21 History [Vitamin D2] Lisinopril/Hydrochlorothiazide 1 tab PO QAM 06/05/17 12/13/21 History [Zestoretic 20-12.5] Nitroglycerin Sl Tabs [Nitrostat] 0.4 mg SUBLINGUAL Q5M PRN 06/05/17 12/13/21 History Pravastatin Sodium [Pravachol] 20 mg PO DAILY 06/05/17 12/14/21 History amLODIPine [Norvasc] 10 mg PO HS 06/05/17 12/14/21 History Docusate [Colace] 100 mg PO BID 11/02/21 12/14/21 History Ezetimibe [Zetia] 10 mg PO DAILY 11/02/21 12/14/21 History Ferrous Sulfate [Feosol] 325 mg PO DAILY 11/02/21 12/14/21 History HYDROcodone/APAP 10-325MG [[place] 1 tab PO Q6HR PRN 11/02/21 12/14/21 History 10-325] Pantoprazole [Protonix] 40 mg PO QAM 11/02/21 12/14/21 History Allergies Allergy/AdvReac Type Severity Reaction Status Date / Time beta blockers Allergy Nausea & Uncoded 12/14/21 11:11 Vomiting, decreased Heart rate to rate of 35 Physical Exam Vitals: Vital Signs Temp Pulse Pulse Resp BP Pulse Ox 12/15/21 14:00 98.1 F 66 18 133/77 66 L 12/15/21 07:58 97.8 F 69 17 106/62 96 12/15/21 01:44 98.3 F 74 18 100/62 94 L 12/14/21 20:00 74 18 12/14/21 19:36 98.1 F 81 18 109/70 96 12/14/21 17:25 79 14 111/69 94 L 12/14/21 17:10 97.0 F L 78 14 111/71 95 12/14/21 16:55 97.1 F L 75 14 111/69 94 L Intake and Output 12/15/21 12/15/21 12/15/21 06:59 14:59 22:59 Intake Total 147.783 Output Total 100 Balance -100 147.783 Intake: Intake, IV Titration 147.783 Amount Ropivacaine 250 mg 147.783 Hydromorphone (Pf) 5 mg In Sodium Chloride 0.9% 200 ml @ Per Protocol EPIDURAL .Q0M PRN Rx#: [id number] Output: Urine 100 Other: Voiding Method Indwelling Catheter In general patient is alert and oriented x 3 in no distress HEENT head normocephalic and atraumatic Neck is supple no JVD no goiter no lymphadenopathy no carotid bruit Chest examination is clear to auscultation no crackles no wheezing Cardiac exam reveals regular heart sounds S1 and S2 no gallops no murmurs Abdomen is soft nontender no organomegaly with normal bowel sounds Extremity exam reveals no edema no cyanosis or clubbing Neurological examination reveals no gross focal deficits Results CBC & Chem 7: 12/16/21 09:28 12/16/21 09:28 Labs: Abnormal Lab Results - Last 24 Hours (Table) 12/15/21 12/15/21 12/15/21 Range/Units 08:56 08:56 09:46 WBC 14.8 H (3.8-10.6) k/uL RBC 3.97 L (4.30-5.90) m/uL Hgb 11.9 L (13.0-17.5) gm/dL Hct 38.0 L (39.0-53.0) % Neutrophils # 12.3 H (1.3-7.7) k/uL Creatinine 1.58 H (0.66-1.25) mg/dL Glucose 111 H (74-99) mg/dL POC Glucose (mg/dL) 115 H (70-110) mg/dL Assessment and Plan Plan: Diverticulitis, status post low anterior resection of the sigmoid colon on Underlying history of hypertension Underlying history of hyperlipidemia Underlying history of coronary artery disease Underlying history of osteoarthritis At this time patient is stable he is alert and oriented and denies any complaints Home medications reviewed and reordered For DVT prophylaxis patient is on subcu heparin for GI prophylaxis IV Pepcid Recheck labs in a.m. Will follow closely
--- NOTE | 2021-12-16 14:03 | P.PN ---
Subjective Progress Note Date: 12/16/21 Phoenix Amaro, he is a 71-year-old male who was admitted to [facility] by Dr. Rush, and underwent low anterior resection of the sigmoid colon due to diverticulitis. Patient was admitted to medical floor postoperatively. Medical consultation was requested for management while hospitalized. Patient has a known history of hypertension, hyperlipidemia, osteoarthritis, coronary artery disease with history of myocardial infarction in the past, history of diverticulosis with diverticulitis, and history of chronic back pain. On 12/16/2021 patient was seen and examined on the medical floor he is alert and oriented 3 in no apparent distress there is no fever or chills no headache or dizziness no chest pain no shortness of breath no cough no nausea or vomiting no abdominal pain no diarrhea and no urinary symptoms, he has not passed any gas or had any bowel movements yet. Objective - Vital Signs Vital signs: Vital Signs Temp 98.4 F 12/16/21 08:00 Pulse 59 L 12/16/21 08:00 Resp 17 12/16/21 08:00 BP 124/76 12/16/21 08:00 Pulse Ox 93 L 12/16/21 08:00 FiO2 Intake & Output 12/15/21 12/16/21 12/16/21 18:59 06:59 18:59 Intake Total 1647.783 Output Total 400 1625 650 Balance 1247.783 -1625 -650 Intake: Intake, IV Titration 1647.783 Amount Dextrose 5%-0.45% NaCl 1, 1500 000 ml @ 125 mls/hr IV . Q8H [facility] Rx#:[id number] Ropivacaine 250 mg 147.783 Hydromorphone (Pf) 5 mg In Sodium Chloride 0.9% 200 ml @ Per Protocol EPIDURAL .Q0M PRN Rx#: [id number] Output: Urine 400 1625 650 Uretheral (Cohen) 650 Other: Voiding Method Indwelling Catheter Indwelling Catheter Indwelling Catheter - Exam In general patient is alert and oriented x 3 in no distress HEENT head normocephalic and atraumatic Neck is supple no JVD no goiter no lymphadenopathy no carotid bruit Chest examination is clear to auscultation no crackles no wheezing Cardiac exam reveals regular heart sounds S1 and S2 no gallops no murmurs Abdomen is soft nontender no organomegaly with normal bowel sounds Extremity exam reveals no edema no cyanosis or clubbing Neurological examination reveals no gross focal deficits - Labs CBC & Chem 7: 12/16/21 09:28 12/16/21 09:28 Labs: Abnormal Lab Results - Last 24 Hours (Table) 12/16/21 12/16/21 Range/Units 09: 09:28 RBC 3.92 L (4.30-5.90) m/uL Hgb 12.4 L (13.0-17.5) gm/dL Hct 37.8 L (39.0-53.0) % Creatinine 1.41 H (0.66-1.25) mg/dL Glucose 107 H (74-99) mg/dL Calcium 8.3 L (8.4-10.2) mg/dL Assessment and Plan Plan: Diverticulitis, status post low anterior resection of the sigmoid colon on Underlying history of hypertension Underlying history of hyperlipidemia Underlying history of coronary artery disease Underlying history of osteoarthritis At this time patient is stable he is alert and oriented and denies any complaints Home medications reviewed and reordered For DVT prophylaxis patient is on subcu heparin for GI prophylaxis IV Pepcid Recheck labs in a.m. Will follow closely
[2021-12-16] MEDS: amLODIPine 10 MG TAB PO SCH (20:34)
[2021-12-16] MEDS: ONDANSETRON 4 MG/2 ML VIAL IVP PRN (21:32)
[2021-12-17] MEDS: ROPIVACAINE 250 MG, HYDROMORPHONE (PF) 5 MG in SODIUM CHLORIDE 0.9% 200 ML EPIDURAL PRN (03:43)
[2021-12-17] MEDS: D5-0.45% NACL WITH KCL 20MEQ/L 1,000 ML IV SCH (03:56)
[2021-12-17] MEDS: FAMOTIDINE 20 MG/2 ML VIAL IV SCH (08:01)
[2021-12-17] MEDS: DOCUSATE 100 MG CAP PO SCH ×2 (08:01→20:08)
[2021-12-17] MEDS: PANTOPRAZOLE 40 MG TABLET PO SCH (08:01)
[2021-12-17] MEDS: CITALOPRAM HYDROBROMIDE 20 MG TAB PO SCH (08:02)
[2021-12-17] MEDS: LISINOPRIL-HCTZ 20-12.5 MG 1 EACH TAB PO SCH (08:02)
[2021-12-17] MEDS: HEPARIN SODIUM,PORCINE/PF 5,000 UNIT/0.5 ML SYRINGE SQ SCH ×2 (08:02→20:08)
[2021-12-17] MEDS: FERROUS SULFATE 325 MG TAB PO SCH (08:03)
--- NOTE | 2021-12-17 08:45 | P.PN ---
Progress Note - Text Progress Note Date: 12/17/21 (4188) Anesthesia Postop day #3 Status post low anterior resection with epidural day #4 Patient seen and examined. Doing well [without complaint]. VAS 2 out of 10. [No nausea vomiting or pruritus]. Ropivacaine [0.1%] with [Dilaudid 20 mcg/mL] at 7 mL an hour. Positive ambulation Objective: Vital signs reviewed Lungs: Good chest excursion Abdomen: Appears nondistended Other: [Epidural Site Intact without induration. Dressing intact] Neuro: [No apparent motor block]. [Sensory within normal limits]. Assessment: Status post low anterior resection with epidural postop day #3 Plan: Continue current care with your medical management. Discontinue epidural today. Spoke with nurse [place]. Last platelets greater than 20. Heparin held this morning.
--- NOTE | 2021-12-17 09:28 | P.PN ---
Subjective Progress Note Date: 12/17/21 Phoenix Amaro, he is a 71-year-old male who was admitted to [facility] by Dr. Rush, and underwent low anterior resection of the sigmoid colon due to diverticulitis. Patient was admitted to medical floor postoperatively. Medical consultation was requested for management while hospitalized. Patient has a known history of hypertension, hyperlipidemia, osteoarthritis, coronary artery disease with history of myocardial infarction in the past, history of diverticulosis with diverticulitis, and history of chronic back pain. On 12/16/2021 patient was seen and examined on the medical floor he is alert and oriented 3 in no apparent distress there is no fever or chills no headache or dizziness no chest pain no shortness of breath no cough no nausea or vomiting no abdominal pain no diarrhea and no urinary symptoms, he has not passed any gas or had any bowel movements yet. 12/17/2021 patient is alert and oriented 3. She remains nothing by mouth. Patient reports mild discomfort and nausea. Patient denies chest pain or shortness breath. Patient denies any urinary burning or frequency. White blood cell 9.6, creatinine 1.41 Objective - Vital Signs Vital signs: Vital Signs Temp 98.3 F 12/17/21 08:00 Pulse 62 12/17/21 08:00 Resp 16 12/17/21 08:00 BP 130/81 12/17/21 08:00 Pulse Ox 96 12/17/21 08:00 FiO2 Intake & Output 12/16/21 12/17/21 12/17/21 18:59 06:59 18:59 Intake Total 166.3 68.483 Output Total 1450 1300 Balance -1283.7 -1231.517 Intake: Intake, IV Titration 166.3 68.483 Amount Ropivacaine 250 mg 166.3 68.483 Hydromorphone (Pf) 5 mg In Sodium Chloride 0.9% 200 ml @ Per Protocol EPIDURAL .Q0M PRN Rx#: [id number] Output: Urine 1450 1300 Uretheral (Cohen) 650 Other: Voiding Method Indwelling Catheter Indwelling Catheter - Exam In general patient is alert and oriented x 3 in no distress HEENT head normocephalic and atraumatic Neck is supple no JVD no goiter no lymphadenopathy no carotid bruit Chest examination is clear to auscultation no crackles no wheezing Cardiac exam reveals regular heart sounds S1 and S2 no gallops no murmurs Abdomen is soft nontender no organomegaly with normal bowel sounds Extremity exam reveals no edema no cyanosis or clubbing Neurological examination reveals no gross focal deficits - Labs CBC & Chem 7: 12/16/21 09:28 12/16/21 09:28 Labs: Abnormal Lab Results - Last 24 Hours (Table) 12/16/21 12/16/21 Range/Units 09:28 09:28 RBC 3.92 L (4.30-5.90) m/uL Hgb 12.4 L (13.0-17.5) gm/dL Hct 37.8 L (39.0-53.0) % Creatinine 1.41 H (0.66-1.25) mg/dL Glucose 107 H (74-99) mg/dL Calcium 8.3 L (8.4-10.2) mg/dL Assessment and Plan Plan: Diverticulitis, status post low anterior resection of the sigmoid colon on 12/14/2021 Underlying history of hypertension Underlying history of hyperlipidemia Underlying history of coronary artery disease Underlying history of osteoarthritis At this time patient is stable he is alert and oriented and denies any complaints Home medications reviewed and reordered For DVT prophylaxis patient is on subcu heparin for GI prophylaxis IV Pepcid Recheck labs in a.m. Will follow closely
[2021-12-17] MEDS ORDERED: BENZOCAINE/MENTHOL LOZENG 1 EACH LOZENGE MUCOUS MEM PRN (11:15)
[2021-12-17 11:41] LABS: Basophils # (A) 0.06 X 10*3/uL (0.00-0.10); Basophils % (A) 0.6 %; Eosinophils # (A) 0.33 X 10*3/uL (0.04-0.35); HGB 11.6 g/dL (13.0-17.0); Immature Grans, Automated 0.3 %; Lymphocytes # (A) 1.35 X 10*3/uL (0.90-5.00); Lymphocytes % (A) 12.5 %; MCH 29.9 pg (27.0-32.0); MCHC 32.2 g/dL (32.0-37.0); MCV 92.8 fL (80.0-97.0); Mean Platelet Volume 11.7 fL (9.5-12.2); Monocytes # (A) 0.99 X 10*3/uL (0.20-1.00); Monocytes % (A) 9.1 %; NRBC Per 100 WBC 0 /100 WBCS (0.0-0.0); Neutrophils # (A) 8.07 X 10*3/uL (1.80-7.70); Neutrophils % (A) 74.5 %; Platelet Count 212 X 10*3/uL (140-440); RBC 3.88 X 10*6/uL (4.40-5.60); RDW 11.4 % (11.5-14.5); WBC 10.83 X 10*3/uL (4.50-10.00)
[2021-12-17 11:52] LABS: Albumin 3.7 g/dL (3.8-4.9); Albumin/Globulin Ratio 1.97 (1.60-3.17); Anion Gap 9.1 mmol/L (10.00-18.00); BUN/Creat Ratio 5.99 Ratio (12.00-20.00); Blood Urea Nitrogen 8.4 mg/dL (9.0-27.0); Calcium 8.8 mg/dL (8.7-10.3); Carbon Dioxide 24.4 mmol/L (20.0-27.5); Globulin 1.9 g/dL (1.6-3.3); Non-African American GFR(CKD) 50.9 (60.0-200.0); Potassium 4.3 mmol/L (3.5-5.5); Total Bilirubin 0.5 mg/dL (0.30-1.20); Total Protein 5.6 g/dL (6.2-8.2)
[2021-12-17] MEDS: ONDANSETRON 4 MG/2 ML VIAL IVP PRN (12:54)
--- NOTE | 2021-12-17 14:54 | P.PN ---
Subjective Progress Note Date: 12/17/21 CHIEF COMPLAINT: Diverticulitis HISTORY OF PRESENT ILLNESS: The patient is a 71-year-old Male status post low anterior resection for diverticulitis. He reports passing moderate flatus and had a large bowel movement. He reports hunger. Pain is controlled. Epidural has been discontinued per anesthesia protocol ROS: No reports of nausea and vomiting. No fevers or chills. No new chest pain. PHYSICAL EXAM: VITAL SIGNS: Reviewed CONSTITUTIONAL: Well developed and in no acute distress. EYES: Conjuctivae without sclera icterus. Extraocular movements grossly intact. HEAD, EARS, NOSE, THROAT: Moist buccal mucosa. Head is atraumatic, normocephalic. Hears conversational speech. No nasal drainage. RESPIRATORY: Non-labored respirations and equal bilateral excursions. CARDIOVASCULAR: Palpable 2+ radial pulses. ABDOMEN: Distressing intact. MUSCULOSKELETAL: No gross deformity of the lower extremities noted. No clubbing. No cyanosis. SKIN: Good skin turgor. Well perfused. NEUROLOGIC: Cranial nerves II through XII grossly intact. No focal or lateralizing signs. PSYCH: Appropriate affect. Alert and oriented to person, place and time. CLINICAL LABS: Reviewed. WBC elevated at 9.6 at 10.8. Hemoglobin 11.8, mild anemia. Creatinine elevated 1.4 down from 1.58. ASSESSMENT: 1. Diverticulitis status post low anterior resection PLAN: 1. Start clear liquid diet 2. Oral pain medication started by hospitalist Objective - Vital Signs Vital signs: Vital Signs Temp 98.3 F 12/17/21 08:00 Pulse 62 12/17/21 08:00 Resp 16 12/17/21 08:00 BP 130/81 12/17/21 08:00 Pulse Ox 96 12/17/21 08:00 FiO2 Intake & Output 12/16/21 12/17/21 12/17/21 18:59 06:59 18:59 Intake Total 166.3 68.483 Output Total 1450 1300 Balance -1283.7 -1231.517 Intake: Intake, IV Titration 166.3 68.483 Amount Ropivacaine 250 mg 166.3 68.483 Hydromorphone (Pf) 5 mg In Sodium Chloride 0.9% 200 ml @ Per Protocol EPIDURAL .Q0M PRN Rx#: [id number] Output: Urine 1450 1300 Uretheral (Cohen) 650 Other: Voiding Method Indwelling Catheter Indwelling Catheter - Labs CBC & Chem 7: 12/17/21 07:00 12/17/21 07:00 Labs: Abnormal Lab Results - Last 24 Hours (Table) 12/17/21 12/17/21 Range/Units 07:00 07:00 WBC 10.83 H (4.50-10.00) X 10*3/uL RBC 3.88 L (4.40-5.60) X 10*6/uL Hgb 11.6 L (13.0-17.0) g/dL Hct 36.0 L (39.6-50.0) % RDW 11.4 L (11.5-14.5) % Neutrophils # 8.07 H (1.80-7.70) X 10*3/uL Anion Gap 9.10 L (10.00-18.00) mmol/L BUN 8.4 L (9.0-27.0) mg/dL Est GFR (CKD-EPI)AfAm 59.0 L (60.0-200.0) Est GFR (CKD-EPI)NonAf 50.9 L (60.0-200.0) BUN/Creatinine Ratio 5.99 L (12.00-20.00) Ratio Glucose 115 H (70-110) mg/dL AST 48 H (14-35) U/L Total Protein 5.6 L (6.2-8.2) g/dL Albumin 3.7 L (3.8-4.9) g/dL
[2021-12-17] MEDS: HYDROmorphone 1 MG/ML 1 ML SYRINGE IVP PRN ×2 (15:22→20:06)
[2021-12-17] MEDS: amLODIPine 10 MG TAB PO SCH (20:08)
[2021-12-17] MEDS ORDERED: PRAVASTATIN SODIUM 20 MG TAB PO SCH (21:00)
[2021-12-17] MEDS ORDERED: EZETIMIBE 10 MG TAB PO SCH (21:00)
[2021-12-17] MEDS ORDERED: ASPIRIN 81 MG PO SCH (21:00)
[2021-12-18] MEDS: HYDROmorphone 1 MG/ML 1 ML SYRINGE IVP PRN (01:58)
[2021-12-18] MEDS: D5-0.45% NACL WITH KCL 20MEQ/L 1,000 ML IV SCH ×3 (05:05→05:07)
[2021-12-18] MEDS: PANTOPRAZOLE 40 MG TABLET PO SCH (08:08)
[2021-12-18] MEDS: CITALOPRAM HYDROBROMIDE 20 MG TAB PO SCH (08:08)
[2021-12-18] MEDS: DOCUSATE 100 MG CAP PO SCH (08:08)
[2021-12-18] MEDS: LISINOPRIL-HCTZ 20-12.5 MG 1 EACH TAB PO SCH (08:08)
[2021-12-18] MEDS: HEPARIN SODIUM,PORCINE/PF 5,000 UNIT/0.5 ML SYRINGE SQ SCH (08:09)
[2021-12-18] MEDS: FAMOTIDINE 20 MG/2 ML VIAL IV SCH (08:09)
[2021-12-18] MEDS: FERROUS SULFATE 325 MG TAB PO SCH (08:09)
[2021-12-18] MEDS: HYDROcodone/APAP 10-325MG 1 EACH TAB PO PRN ×2 (08:16→13:17)
[2021-12-18 08:39] VITALS: BP 138/87; PULSE 67; RESP 18; TEMP 98.6
[2021-12-18 09:28] LABS: Basophils # (A) 0.06 X 10*3/uL (0.00-0.10); Basophils % (A) 0.5 %; Eosinophils % (A) 5.1 %; HGB 12.5 g/dL (13.0-17.0); Immature Grans, Automated 0.4 %; Lymphocytes # (A) 1.99 X 10*3/uL (0.90-5.00); Lymphocytes % (A) 16.8 %; MCH 30.9 pg (27.0-32.0); MCHC 32.9 g/dL (32.0-37.0); MCV 93.8 fL (80.0-97.0); NRBC Per 100 WBC 0 /100 WBCS (0.0-0.0); Neutrophils # (A) 7.83 X 10*3/uL (1.80-7.70); Neutrophils % (A) 66.2 %; Platelet Count 263 X 10*3/uL (140-440); RBC 4.05 X 10*6/uL (4.40-5.60); RDW 11.6 % (11.5-14.5); WBC 11.83 X 10*3/uL (4.50-10.00)
[2021-12-18 09:43] LABS: African American GFR (CKD) 61.1 (60.0-200.0); Albumin 3.3 g/dL (3.8-4.9); Albumin/Globulin Ratio 1.9 (1.60-3.17); Anion Gap 7.4 mmol/L (10.00-18.00); BUN/Creat Ratio 6.41 Ratio (12.00-20.00); Blood Urea Nitrogen 8.7 mg/dL (9.0-27.0); Calcium 8.3 mg/dL (8.7-10.3); Carbon Dioxide 24.8 mmol/L (20.0-27.5); Globulin 1.7 g/dL (1.6-3.3); Non-African American GFR(CKD) 52.7 (60.0-200.0); Potassium 4.7 mmol/L (3.5-5.5); Total Bilirubin 0.5 mg/dL (0.30-1.20)
--- NOTE | 2021-12-18 12:07 | P.PN ---
Subjective Progress Note Date: 12/18/21 [facility], he is a 71-year-old male who was admitted to [facility] by Dr. Rush, and underwent low anterior resection of the sigmoid colon due to diverticulitis. Patient was admitted to medical floor postoperatively. Medical consultation was requested for management while hospitalized. Patient has a known history of hypertension, hyperlipidemia, osteoarthritis, coronary artery disease with history of myocardial infarction in the past, history of diverticulosis with diverticulitis, and history of chronic back pain. On 12/16/2021 patient was seen and examined on the medical floor he is alert and oriented 3 in no apparent distress there is no fever or chills no headache or dizziness no chest pain no shortness of breath no cough no nausea or vomiting no abdominal pain no diarrhea and no urinary symptoms, he has not passed any gas or had any bowel movements yet. 12/17/2021 patient is alert and oriented 3. She remains nothing by mouth. Patient reports mild discomfort and nausea. Patient denies chest pain or shortness breath. Patient denies any urinary burning or frequency. White blood cell 9.6, creatinine 1.41 On 12/18/2021 patient was seen and examined on the medical floor he is alert and oriented 3 in no apparent distress there is no fever or chills no headache or dizziness no chest pain no shortness of breath no cough no nausea or vomiting no abdominal pain no diarrhea and no urinary symptoms, today patient is passing gas and had a bowel movement, he was started on clear liquid diet yesterday, possible discharge to home in the next 24-48 Objective - Vital Signs Vital signs: Vital Signs Temp 98.6 F 12/18/21 08:38 Pulse 67 12/18/21 08:38 Resp 18 12/18/21 08:38 BP 138/87 12/18/21 08:38 Pulse Ox 97 12/18/21 08:38 FiO2 Intake & Output 12/17/21 12/18/21 12/18/21 18:59 06:59 18:59 Intake Total 1080 1500 Output Total 100 100 Balance 980 1500 -100 Intake: Intake, IV Titration 1500 Amount D5-0.45% NaCl with KCl 1500 20Meq/l 1,000 ml @ 125 mls/hr IV .Q8H [facility] Rx#: [id number] Oral 1080 Output: Urine 100 100 Uretheral (Cohen) 100 Other: # Voids 2 # Bowel Movements 1 - Exam In general patient is alert and oriented x 3 in no distress HEENT head normocephalic and atraumatic Neck is supple no JVD no goiter no lymphadenopathy no carotid bruit Chest examination is clear to auscultation no crackles no wheezing Cardiac exam reveals regular heart sounds S1 and S2 no gallops no murmurs Abdomen is soft nontender no organomegaly with normal bowel sounds Extremity exam reveals no edema no cyanosis or clubbing Neurological examination reveals no gross focal deficits - Labs CBC & Chem 7: 12/18/21 03:42 12/18/21 03:42 Labs: Abnormal Lab Results - Last 24 Hours (Table) 12/18/21 12/18/21 Range/Units 03:42 03:42 WBC 11.83 H (4.50-10.00) X 10*3/uL RBC 4.05 L (4.40-5.60) X 10*6/uL Hgb 12.5 L (13.0-17.0) g/dL Hct 38.0 L (39.6-50.0) % Immature Gran # 0.05 H (0.00-0.04) X 10*3/uL Neutrophils # 7.83 H (1.80-7.70) X 10*3/uL Monocytes # 1.30 H (0.20-1.00) X 10*3/uL Eosinophils # 0.60 H (0.04-0.35) X 10*3/uL Anion Gap 7.40 L (10.00-18.00) mmol/L BUN 8.7 L (9.0-27.0) mg/dL Est GFR (CKD-EPI)NonAf 52.7 L (60.0-200.0) BUN/Creatinine Ratio 6.41 L (12.00-20.00) Ratio Glucose 134 H (70-110) mg/dL Calcium 8.3 L (8.7-10.3) mg/dL Total Protein 5.0 L (6.2-8.2) g/dL Albumin 3.3 L (3.8-4.9) g/dL Assessment and Plan Plan: Diverticulitis, status post low anterior resection of the sigmoid colon on 12/14 Underlying history of hypertension Underlying history of hyperlipidemia Underlying history of coronary artery disease Underlying history of osteoarthritis At this time patient is stable he is alert and oriented and denies any complaints Home medications reviewed and reordered For DVT prophylaxis patient is on subcu heparin for GI prophylaxis IV Pepcid Recheck labs in a.m. Will follow closely
--- NOTE | 2021-12-18 13:17 | P.DS ---
Providers Date of admission: 12/14/21 10:39 Expected date of discharge: 12/18/21 Attending physician: Mark Rush Consults: 12/15/21 07:47 Consult Physician Routine Consulting Provider: Chuckie Rendon Consult Reason/Comments: medical management Do you want consulting provider notified?: Yes Primary care physician: Chuckie Kindred Hospital Course: COURSE: The patient is a 71-year-old male admitted with history of diverticulitis. He is status post low anterior resection for diverticulitis. Family at bedside. He continues to pass moderate flatus and bowel movement. Pain well controlled. Tolerating full liquid diet. Denies any abdominal pain nausea and vomiting. Patient eager to go home. He is afebrile. ROS: No reports of nausea and vomiting. No fevers or chills. No new chest pain. PHYSICAL EXAM: VITAL SIGNS: Reviewed CONSTITUTIONAL: Well developed and in no acute distress. EYES: Conjuctivae without sclera icterus. Extraocular movements grossly intact. HEAD, EARS, NOSE, THROAT: Moist buccal mucosa. Head is atraumatic, normocephalic. Hears conversational speech. No nasal drainage. RESPIRATORY: Non-labored respirations and equal bilateral excursions. CARDIOVASCULAR: Palpable 2+ radial pulses. ABDOMEN: Dressing intact. Nontender. Nondistended. MUSCULOSKELETAL: No gross deformity of the lower extremities noted. No clubbing. No cyanosis. SKIN: Good skin turgor. Well perfused. NEUROLOGIC: Cranial nerves II through XII grossly intact. No focal or lateralizing signs. PSYCH: Appropriate affect. Alert and oriented to person, place and time. CLINICAL LABS: Reviewed. Creatinine stable 1.4. WBC elevated 11.8. ASSESSMENT: 1. Diverticulitis status post low anterior resection 2. Chronic renal insufficiency, stage III PLAN: 1. Patient is on narcotics at home. Contact pain provider for additional narcotics 2. Low fiber diet described. 3. Follow-up as outpatient with surgeon 4. Questions addressed with patient and family at bedside. 5. Follow-up with PCP as outpatient. Patient Condition at Discharge: Stable Plan - Discharge Summary Discharge Rx Participant: No New Discharge Prescriptions: Continue Ergocalciferol (Vitamin D2) [Vitamin D2] 50,000 unit PO Q7D Aspirin 81 mg PO DAILY amLODIPine [Norvasc] 10 mg PO HS Lisinopril/Hydrochlorothiazide [Zestoretic 20-12.5] 1 tab PO QAM Citalopram Hydrobromide [CeleXA] 40 mg PO QAM Pravastatin Sodium [Pravachol] 20 mg PO DAILY Nitroglycerin Sl Tabs [Nitrostat] 0.4 mg SUBLINGUAL Q5M PRN PRN Reason: Chest Pain HYDROcodone/APAP 10-325MG [[place] 10-325] 1 tab PO Q6HR PRN PRN Reason: Pain Ezetimibe [Zetia] 10 mg PO DAILY Docusate [Colace] 100 mg PO BID Pantoprazole [Protonix] 40 mg PO QAM Ferrous Sulfate [Iron (65 MG Elemental)] 325 mg PO DAILY Discharge Medication List Aspirin 81 mg PO DAILY 06/05/17 [History] Citalopram Hydrobromide [CeleXA] 40 mg PO QAM 06/05/17 [History] Ergocalciferol (Vitamin D2) [Vitamin D2] 50,000 unit PO Q7D 06/05/17 [History] Lisinopril/Hydrochlorothiazide [Zestoretic 20-12.5] 1 tab PO QAM 06/05/17 [History] Nitroglycerin Sl Tabs [Nitrostat] 0.4 mg SUBLINGUAL Q5M PRN 06/05/17 [History] Pravastatin Sodium [Pravachol] 20 mg PO DAILY 06/05/17 [History] amLODIPine [Norvasc] 10 mg PO HS 06/05/17 [History] Docusate [Colace] 100 mg PO BID 11/02/21 [History] Ezetimibe [Zetia] 10 mg PO DAILY 11/02/21 [History] Ferrous Sulfate [Iron (65 MG Elemental)] 325 mg PO DAILY 11/02/21 [History] HYDROcodone/APAP 10-325MG [[place] 10-325] 1 tab PO Q6HR PRN 11/02/21 [History] Pantoprazole [Protonix] 40 mg PO QAM 11/02/21 [History] Follow up Appointment(s)/Referral(s): Mark Rush MD [STAFF PHYSICIAN] - 1 Week Patient Instructions/Handouts: *Surgery [facility] - Managing Your Pain After Surgery Without Opioids, Colectomy Diet (ED), Laparoscopic Bowel Resection (GEN) Activity/Diet/Wound Care/Special Instructions: For narcotics, please contact your pain provider. Low fiber diet. Avoid seeds, meets, steak until cleared by surgeon Discharge Disposition: HOME SELF-CARE
== END 2021-12-18 13:47 | disposition home or self-care (01) | DRG 331 ==
LOC: 2ORMAIN 10:39 → 4SSUR 14:34
PROVIDERS: ADMIT Surgery; ATTEND Surgery
PROC: 0DTN0ZZ Resection of Sigmoid Colon, Open Approach (ICD-10-PCS; principal; 2021-12-14 12:25)
DX: K57.32 Diverticulitis of large intestine without perforation or abscess without bleeding (principal); I12.9 Hypertensive chronic kidney disease with stage 1 through stage 4 chronic kidney disease, or unspecified chronic kidney disease; E78.5 Hyperlipidemia, unspecified; F17.210 Nicotine dependence, cigarettes, uncomplicated; I25.10 Atherosclerotic heart disease of native coronary artery without angina pectoris; K59.00 Constipation, unspecified; M19.90 Unspecified osteoarthritis, unspecified site; I25.2 Old myocardial infarction; M79.7 Fibromyalgia; N18.30 Chronic kidney disease, stage 3 unspecified; Z79.82 Long term (current) use of aspirin; Z79.899 Other long term (current) drug therapy; G89.29 Other chronic pain; M54.9 Dorsalgia, unspecified; Z95.5 Presence of coronary angioplasty implant and graft; Z88.8 Allergy status to other drugs, medicaments and biological substances
CPT/HCPCS: 80048; 80053; 85025; 86850; 86900; 86901; 88307

== ENCOUNTER 2022-02-10 12:58 | Inpatient (IN) | payer MEDICARE ==
[2022-02-10] MEDS ORDERED: SODIUM CHLORIDE 0.9% 1,000 ML IV STA ×2 (13:42→15:21)
[2022-02-10] MEDS ORDERED: fentaNYL (PF) 50 MCG/ML 2 ML AMP IVP STA (13:50)
[2022-02-10] MEDS ORDERED: ONDANSETRON 4 MG/2 ML VIAL IVP STA (13:50)
--- NOTE | 2022-02-10 14:01 | ED ---
General Adult HPI - General Chief complaint: Abdominal Pain Stated complaint: post op vomiting/abd pain Time Seen by Provider: 02/10/22 13:42 Source: patient Mode of arrival: ambulatory Limitations: no limitations - History of Present Illness Initial comments: Dictation was produced using [employer] dictation software. please excuse any grammatical, word or spelling errors. Chief Complaint: 71-year-old male presents to the emergency department for worsening abdominal pain History of Present Illness: Patient is 71-year-old male presents to the emergency department for worsening abdominal pain. Patient has a history of lower anterior resection to treat diverticulitis 2 months ago. Patient was in his usual state of health since yesterday when he began developing severe diffuse and worsening abdominal pain. Patient is diaphoretic and is a poor historian. Patient's significant other is at the bedside states that he did have a bout of bilious vomiting. Patient has any fever, chills or night sweats. States that his pain hurts all over. The ROS documented in this emergency department record has been reviewed and confirmed by me. Those systems with pertinent positive or negative responses have been documented in the HPI. All other systems are other negative and/or noncontributory. PHYSICAL EXAM: General Impression: Alert and oriented x3, diaphoretic, davidson skin tone HEENT: Normocephalic atraumatic, extra-ocular movements intact, pupils equal and reactive to light bilaterally, mucous membranes moist. Cardiovascular: Heart regular rate and rhythm Chest: Able to complete full sentences, no retractions, no tachypnea Abdomen: Diffuse tenderness with no obvious tympany Musculoskeletal: Pulses present and equal in all extremities, no peripheral edema Motor: no focal deficits noted Neurological: CN II-XII grossly intact, no focal motor or sensory deficits noted Skin: Intact with no visualized rashes Psych: Normal affect and mood ED course: 71-year-old male presents to the emergency department for worsening a bdominal pain. He does have a history of abdominal surgery. vital signs upon arrival shows initial blood pressure 86/57. At the bedside is blood pressure is 94/56. Platelet care blood glucose is 191. Patient given 2 large-bore IVs and fluids initiated. My EKG interpretation: Ventricular rate 99, sinus rhythm, OH interval 144, care is 93, QTC 419. No OH prolongation, no QTC prolongation, no ST or T-wave changes noted. Overall, this EKG is unremarkable Laboratory evaluation obtained. Leukocytosis of 20.9 concerning for intra- abdominal infection. Coag panel is unremarkable. Metabolic panel shows Acidosis. Lactic acid level III.4. Rest of labs within acceptable limits. Computed tomography scan shows findings to suggest bowel obstruction versus ileus.. Case was discussed with Dr. Rush who requests nasogastric tube, IV antibiotics. Patient be admitted to Dr. Rush. - Related Data Home Medications Medication Instructions Recorded Confirmed Aspirin 81 mg PO HS 06/05/17 02/10/22 Citalopram Hydrobromide [CeleXA] 40 mg PO QAM 06/05/17 02/10/22 Ergocalciferol (Vitamin D2) 50,000 unit PO FR 06/05/17 02/10/22 [Vitamin D2] Lisinopril/Hydrochlorothiazide 1 tab PO QAM 06/05/17 02/10/22 [Zestoretic 20-12.5] Nitroglycerin Sl Tabs [Nitrostat] 0.4 mg SUBLINGUAL Q5M PRN 06/05/17 02/10/22 Pravastatin Sodium [Pravachol] 20 mg PO HS 06/05/17 02/10/22 amLODIPine [Norvasc] 10 mg PO HS 06/05/17 02/10/22 Docusate [Colace] 100 mg PO BID 11/02/21 02/10/22 Ezetimibe [Zetia] 10 mg PO HS 11/02/21 02/10/22 HYDROcodone/APAP 10-325MG [[place] 1 tab PO TID 11/02/21 02/10/22 10-325] Pantoprazole [Protonix] 40 mg PO QAM 11/02/21 02/10/22 Cetirizine HCl [Zyrtec] 10 mg PO DAILY 02/10/22 02/10/22 Cyclobenzaprine [Flexeril] 10 mg PO HS PRN 02/10/22 02/10/22 Ferrous Gluconate 324 mg PO Q2D 02/10/22 02/10/22 Vitamin B Complex 1 cap PO DAILY 02/10/22 02/10/22 Allergies Allergy/AdvReac Type Severity Reaction Status Date / Time beta blockers AdvReac Nausea & Uncoded 02/10/22 15:22 Vomiting, decreased Heart rate to rate of 35 Review of Systems ROS Statement: Those systems with pertinent positive or pertinent negative responses have been documented in the HPI. ROS Other: All systems not noted in ROS Statement are negative. Past Medical History Past Medical History: Coronary Artery Disease (CAD), Fibromyalgia, Hyperlipidemi a, Hypertension, Myocardial Infarction ([place]), Osteoarthritis (OA), Renal Disease Additional Past Medical History / Comment(s): diverticulitis,right sided abd. pain, constipation, decreased kidney function, chronic back pain, leg pain Last Myocardial Infarction Date:: 2002 History of Any Multi-Drug Resistant Organisms: None Reported Past Surgical History: Adenoidectomy, Heart Catheterization With Stent, Tonsillectomy Additional Past Surgical History / Comment(s): L knee surgery Past Anesthesia/Blood Transfusion Reactions: No Reported Reaction Additional Past Anesthesia/Blood Transfusion Reaction / Comment(s): no hx blood transfusion Date of Last Stent Placement:: 2002 Past Psychological History: No Psychological Hx Reported Smoking Status: Current every day smoker Past Alcohol Use History: None Reported Past Drug Use History: None Reported - Past Family History Mother Family Medical History: No Reported History General Exam Limitations: no limitations Course Vital Signs 02/10/22 13:37 Temperature 95.6 F L Pulse Rate 127 H Respiratory 22 Rate Blood Pressure 86/57 O2 Sat by Pulse 99 Oximetry Medical Decision Making - Lab Data Result diagrams: 02/10/22 14:02 02/10/22 14:02 Lab Results 02/10/22 02/10/22 02/10/22 Range/Units 13:58 14:02 14:02 WBC 21.9 H (3.8-10.6) k/uL RBC 5.19 (4.30-5.90) m/uL Hgb 15.8 D (13.0-17.5) gm/dL Hct 47.2 (39.0-53.0) % MCV 91.1 D (80.0-100.0) fL MCH 30.4 (25.0-35.0) pg MCHC 33.4 (31.0-37.0) g/dL RDW 11.7 (11.5-15.5) % Plt Count 416 (150-450) k/uL MPV 9.4 Neutrophils % 76 % Lymphocytes % 16 % Monocytes % 3 % Eosinophils % 3 % Basophils % 1 % Neutrophils # 16.8 H (1.3-7.7) k/uL Lymphocytes # 3.6 (1.0-4.8) k/uL Monocytes # 0.6 (0-1.0) k/uL Eosinophils # 0.6 (0-0.7) k/uL Basophils # 0.1 (0-0.2) k/uL PT 10.3 (9.0-12.0) sec INR 0.9 (<1.2) APTT 21.8 L (22.0-30.0) sec Sodium (137-145) mmol/L Potassium (3.5-5.1) mmol/L Chloride (98-107) mmol/L Carbon Dioxide (22-30) mmol/L Anion Gap mmol/L BUN (9-20) mg/dL Creatinine (0.66-1.25) mg/dL Est GFR (CKD-EPI)AfAm (>60 ml/min/1.73 sqM) Est GFR (CKD-EPI)NonAf (>60 ml/min/1.73 sqM) Glucose (74-99) mg/dL POC Glucose (mg/dL) 191 H (70-110) mg/dL POC Glu Fiber Product Cutting Machine Operator ID James Maynard Plasma Lactic Acid Freeman (0.7-2.0) mmol/L Calcium (8.4-10.2) mg/dL Magnesium (1.6-2.3) mg/dL Total Bilirubin (0.2-1.3) mg/dL AST (17-59) U/L ALT (4-49) U/L Alkaline Phosphatase (38-126) U/L Total Protein (6.3-8.2) g/dL Albumin (3.5-5.0) g/dL 02/10/22 02/10/22 Range/Units 14:02 14:02 WBC (3.8-10.6) k/uL RBC (4.30-5.90) m/uL Hgb (13.0-17.5) gm/dL Hct (39.0-53.0) % MCV (80.0-100.0) fL MCH (25.0-35.0) pg MCHC (31.0-37.0) g/dL RDW (11.5-15.5) % Plt Count (150-450) k/uL MPV Neutrophils % % Lymphocytes % % Monocytes % % Eosinophils % % Basophils % % Neutrophils # (1.3-7.7) k/uL Lymphocytes # (1.0-4.8) k/uL Monocytes # (0-1.0) k/uL Eosinophils # (0-0.7) k/uL Basophils # (0-0.2) k/uL PT (9.0-12.0) sec INR (<1.2) APTT (22.0-30.0) sec Sodium 138 (137-145) mmol/L Potassium 3.8 (3.5-5.1) mmol/L Chloride 105 (98-107) mmol/L Carbon Dioxide 16 L (22-30) mmol/L Anion Gap 17 mmol/L BUN 23 H (9-20) mg/dL Creatinine 1.70 H (0.66-1.25) mg/dL Est GFR (CKD-EPI)AfAm 47 (>60 ml/min/1.73 sqM) Est GFR (CKD-EPI)NonAf 40 (>60 ml/min/1.73 sqM) Glucose 199 H (74-99) mg/dL POC Glucose (mg/dL) (70-110) mg/dL POC Glu Fiber Product Cutting Machine Operator ID Plasma Lactic Acid Freeman 3.4 H* (0.7-2.0) mmol/L Calcium 10.8 H (8.4-10.2) mg/dL Magnesium 2.2 (1.6-2.3) mg/dL Total Bilirubin 1.0 (0.2-1.3) mg/dL AST 27 (17-59) U/L ALT 14 (4-49) U/L Alkaline Phosphatase 203 H (38-126) U/L Total Protein 8.3 H (6.3-8.2) g/dL Albumin 5.3 H (3.5-5.0) g/dL Disposition Clinical Impression: Small bowel obstruction Disposition: [facility] Condition: Serious Referrals: Chuckie Rendon MD [Primary Care Provider] - 1-2 days Decision Time: 15:50
[2022-02-10 14:03] LABS: Glucose,Whole Blood 191 mg/dL (70-110)
[2022-02-10 14:32] LABS: Albumin 5.3 g/dL (3.5-5.0); Calcium 10.8 mg/dL (8.4-10.2); Magnesium 2.2 mg/dL (1.6-2.3); Potassium 3.8 mmol/L (3.5-5.1); Total Protein 8.3 g/dL (6.3-8.2)
[2022-02-10 14:37] LABS: Basophils # (A) 0.1 k/uL (0-0.2); Basophils % (A) 1 %; Eosinophils # (A) 0.6 k/uL (0-0.7); Eosinophils % (A) 3 %; HCT 47.2 % (39.0-53.0); Lymphocytes # (A) 3.6 k/uL (1.0-4.8); Lymphocytes % (A) 16 %; MCH 30.4 pg (25.0-35.0); MCHC 33.4 g/dL (31.0-37.0); Mean Platelet Volume 9.4; Monocytes # (A) 0.6 k/uL (0-1.0); Monocytes % (A) 3 %; Neutrophils # (A) 16.8 k/uL (1.3-7.7); Neutrophils % (A) 76 %; Platelet Count 416 k/uL (150-450); RBC 5.19 m/uL (4.30-5.90); RDW 11.7 % (11.5-15.5); WBC 21.9 k/uL (3.8-10.6)
[2022-02-10 14:39] LABS: INR 0.9 (<1.2); Prothrombin Time 10.3 sec (9.0-12.0)
[2022-02-10 14:42] LABS: Partial Thromboplastin Time 21.8 sec (22.0-30.0)
[2022-02-10 14:43] LABS: HGB 15.8 gm/dL (13.0-17.5); MCV 91.1 fL (80.0-100.0)
[2022-02-10] MEDS ORDERED: PIPERACILLIN-TAZOBACTAM 3.375 GM in SODIUM CHLORIDE 0.9% 100 ML IVPB STA (14:43)
--- NOTE | 2022-02-10 14:46 | CT ---
EXAMINATION TYPE: CT abdomen pelvis w con DATE OF EXAM: 02/10/2022 COMPARISON: None INDICATION: abdominal pain, hx of renal disease DLP: 816.6 mGycm, Automated exposure control for dose reduction was used. CONTRAST: 80 mL of Isovue 300. Study performed without Oral Contrast TECHNIQUE: Axial images were obtained from above the diaphragm to the pubic rami in the axial plane a t 5 mm thick sections. Reconstructed images are reviewed on the computer in the coronal plane. FINDINGS: Limited CT sections are obtained the lung bases. The lung bases are clear. CT ABDOMEN: Liver: Normal Spleen: Normal Pancreas: Normal Adrenal glands: The adrenal glands are normal. Gallbladder: Normal Kidneys: No masses are evident. No hydronephrosis is present. No cysts are present. Delayed images were obtained through the kidneys, which remain unremarkable. Aorta: Vascular calcification is within the aorta. Inferior vena cava: Normal. CT PELVIS: There are multiple fluid-filled small bowel loops which appear dilated. Fecal debris is through the c olon. The colon is somewhat prominent. This extends through and past the anastomosis within the sigmo id colon without obvious complete obstruction. No zone of transition is evident. Consider ileus or mi ld partial bowel obstruction. There is abundant fecal debris throughout the colon. Consider colonic o bstruction. No pneumatosis intestinalis is evident. There is some hyperintense proximal small bowel l oop. No free air is evident. Appendix: Not Identified with no dilated tubular structure or inflammatory change evident. Urinary bladder: Normal. Genitourinary structures: Prostate is unremarkable Osseous structures: No suspicious lytic or sclerotic lesions. Spondylolysis of L5 is present. IMPRESSIONS: 1. Diffuse fluid-filled prominent small bowel loops with more moderate prominence and fecal debris f illed colon to the level of the sigmoid anastomosis. Partial obstruction should be considered. Report was called and the case discussed with Dr. Angulo by Dr. Zepeda by telephone at 1440 hours 022.
[2022-02-10] MEDS ORDERED: SODIUM CHLORIDE 0.9% 1,400 ML IV STA (15:22)
[2022-02-10] MEDS ORDERED: NALOXONE 0.4 MG/ML 1 ML VIAL IV PRN (15:46)
[2022-02-10] MEDS ORDERED: SODIUM CHLORIDE 0.9% 1,000 ML IV SCH (16:00)
[2022-02-10] MEDS: MORPHINE SULFATE 4 MG/ML SYRINGE IV PRN ×2 (16:43→20:31)
--- NOTE | 2022-02-10 17:59 | XR ---
EXAMINATION TYPE: XR chest 1V confirm line [facility] DATE OF EXAM: 02/10/2022 COMPARISON: NONE HISTORY: Cough TECHNIQUE: 2 views FINDINGS: Heart is normal. Lungs are clear of infiltrate. There are no hilar masses. There is a nasog astric tube is folded on itself in the distal esophagus. No pleural effusion. IMPRESSION: The NG tube is malpositioned and is folded on itself in the distal esophagus.
[2022-02-10 22:12] LABS: Glucose,Whole Blood 135 mg/dL (70-110)
[2022-02-10 22:53] LABS: Glucose,Whole Blood 160 mg/dL (70-110)
[2022-02-10] MEDS ORDERED: SODIUM CHLORIDE 0.9% 1,000 ML IV ONE (23:01)
--- NOTE | 2022-02-10 23:21 | XR ---
EXAMINATION TYPE: XR chest 1V portable DATE OF EXAM: 02/10/2022 COMPARISON: Today HISTORY: Tube placement TECHNIQUE: Renal view FINDINGS: There is nasogastric tube and the tip is in the gastric fundus. Lungs are clear. No heart f ailure. Heart size is normal. IMPRESSION: No active cardiopulmonary disease. Nasogastric tube is in good position in the stomach.
[2022-02-10] MEDS: SODIUM CHLORIDE 0.9% 1,000 ML IV SCH (23:38)
[2022-02-11] MEDS: PIPERACILLIN-TAZOBACTAM 3.375 GM in SODIUM CHLORIDE 0.9% 100 ML IVPB SCH ×3 (00:52→15:45)
[2022-02-11] MEDS ORDERED: propofoL 100 ML IV ONE (03:02)
[2022-02-11] MEDS: MORPHINE SULFATE 4 MG/ML SYRINGE IV PRN ×5 (06:15→23:51)
[2022-02-11] MEDS: SODIUM CHLORIDE 0.9% 1,000 ML IV SCH ×3 (07:30→23:50)
--- NOTE | 2022-02-11 09:11 | P.CONS ---
History of Present Illness - Reason for Consult Consult date: 02/11/22 - History of Present Illness Phoenix Amaro, is a 71 year-old male who presented to [facility] emergency room with a chief complaint of abdominal pain, patient describes a diffuse abdominal pain that started 1 day prior to presentation and was worsening, he had nausea and 1 episode of vomiting he was diaphoretic otherwise he denies any fever or chills no headache or dizziness no chest pain no shortness of breath no cough no diarrhea no blood in the stools and no urinary symptoms. Patient has a known history of diverticulitis he was admitted by Dr. Rush on 12/14/2021 and underwent low anterior resection of sigmoid colon. He states that he was doing well until the day prior to this admission. He was evaluated in the emergency room vital examination on presentation revealed a temperature of 95.6 pulse 127 respiration 22 blood pressure 86/57 pulse ox 99% on room air Laboratory data revealed a white blood count of 21.9 hemoglobin 15.8 platelet count 416 sodium 138 potassium 3.8 chloride 105 CO2 26 BUN 23 creatinine 1.7 lactic acid was 4.1 Testing in the emergency room revealed computed tomography scan of the abdomen and pelvis was done in the emergency room and revealed diffuse fluid-filled prominent small bowel loops with more prominence and fecal debris filled colon to the level of the sigmoid anastomosis. Patient was admitted to medical floor for further evaluation and treatment. However blood pressure was low and patient developed worsening tachycardia he was transferred to intensive care unit shortly after admission. Past Medical History Past Medical History: Coronary Artery Disease (CAD), Fibromyalgia, Hyperlipidemia, Hypertension, Myocardial Infarction ([place]), Osteoarthritis (OA), Renal Disease Additional Past Medical History / Comment(s): diverticulitis, constipation, decreased kidney function, chronic back pain, leg pain Last Myocardial Infarction Date:: 2002 History of Any Multi-Drug Resistant Organisms: None Reported Past Surgical History: Adenoidectomy, Bowel Resection, Heart Catheterization With Stent, Tonsillectomy Additional Past Surgical History / Comment(s): L knee surgery, lower anterior resection by Dr. Rush on 12/14/21 Past Anesthesia/Blood Transfusion Reactions: No Reported Reaction Additional Past Anesthesia/Blood Transfusion Reaction / Comm: no hx blood transfusion Date of Last Stent Placement:: 2002 Smoking Status: Former smoker - Past Family History Mother Family Medical History: Hypertension Medications and Allergies Home Medications Medication Instructions Recorded Confirmed Type Aspirin 81 mg PO HS 06/05/17 02/10/22 History Citalopram Hydrobromide [CeleXA] 40 mg PO QAM 06/05/17 02/10/22 History Ergocalciferol (Vitamin D2) 50,000 unit PO FR 06/05/17 02/10/22 History [Vitamin D2] Lisinopril/Hydrochlorothiazide 1 tab PO QAM 06/05/17 02/10/22 History [Zestoretic 20-12.5] Nitroglycerin Sl Tabs [Nitrostat] 0.4 mg SUBLINGUAL Q5M PRN 06/05/17 02/10/22 History Pravastatin Sodium [Pravachol] 20 mg PO HS 06/05/17 02/10/22 History amLODIPine [Norvasc] 10 mg PO HS 06/05/17 02/10/22 History Docusate [Colace] 100 mg PO BID 11/02/21 02/10/22 History Ezetimibe [Zetia] 10 mg PO HS 11/02/21 02/10/22 History HYDROcodone/APAP 10-325MG [[place] 1 tab PO TID 11/02/21 02/10/22 History 10-325] Pantoprazole [Protonix] 40 mg PO QAM 11/02/21 02/10/22 History Cetirizine HCl [Zyrtec] 10 mg PO DAILY 02/10/22 02/10/22 History Cyclobenzaprine [Flexeril] 10 mg PO HS PRN 02/10/22 02/10/22 History Ferrous Gluconate 324 mg PO Q2D 02/10/22 02/10/22 History Vitamin B Complex 1 cap PO DAILY 02/10/22 02/10/22 History Allergies Allergy/AdvReac Type Severity Reaction Status Date / Time beta blockers AdvReac Nausea & Uncoded 02/10/22 15:22 Vomiting, decreased Heart rate to rate of 35 Physical Exam Vitals: Vital Signs Temp Pulse Pulse Resp BP BP Pulse Ox 02/11/22 07:00 101 H 20 95/67 95 02/11/22 06:00 105 H 18 105/75 94 L 02/11/22 05:00 101 H 23 91/71 93 L 02/11/22 04:00 98.0 F 111 H 28 H 99/72 91 L 02/11/22 03:00 107 H 24 92/70 95 02/11/22 02:00 112 H 28 H 91/71 94 L 02/11/22 01:00 97.9 F 118 H 26 H 95/69 95 02/10/22 18:28 97.4 F L 109 H 18 108/85 97 02/10/22 17:45 97.6 F 93 16 139/96 99 02/10/22 13:37 95.6 F L 127 H 22 86/57 99 Intake and Output 02/10/22 02/11/22 02/11/22 22:59 06:59 14:59 Intake Total 1974 125 Output Total 190 Balance 1785 125 Intake: IV 1974 125 Piperacillin-Tazobactam 3 100 .375 gm In Sodium Chloride 0.9% 100 ml @ 25 mls/hr IVPB Q8HR [facility] Rx# :[id number] Sodium Chloride 0.9% 1, 875 125 000 ml @ 125 mls/hr IV . Q8H [facility] Rx#:[id number] Sodium Chloride 0.9% 1, 1000 000 ml @ 999 mls/hr IV . Q1H1M ONE Rx#:[id number] Output: Urine 190 Other: # Voids 1 # Bowel Movements 2 2 Weight 72.575 kg 73.8 kg In general patient is alert and oriented x 3 in no distress HEENT head normocephalic and atraumatic Neck is supple no JVD no goiter no lymphadenopathy no carotid bruit Chest examination is clear to auscultation no crackles no wheezing Cardiac exam reveals regular heart sounds S1 and S2 no gallops no murmurs Abdomen is soft with mild diffuse tenderness no organomegaly no palpable masses there is hyperactive bowel sounds Extremity exam reveals no edema no cyanosis or clubbing Neurological examination reveals no gross focal deficits Results CBC & Chem 7: 02/10/22 14:02 02/10/22 14:02 Labs: Abnormal Lab Results - Last 24 Hours (Table) 02/10/22 02/10/22 02/10/22 Range/Units 13:58 14:02 14:02 WBC 21.9 H (3.8-10.6) k/uL Neutrophils # 16.8 H (1.3-7.7) k/uL APTT 21.8 L (22.0-30.0) sec Carbon Dioxide (22-30) mmol/L BUN (9-20) mg/dL Creatinine (0.66-1.25) mg/dL Glucose (74-99) mg/dL POC Glucose (mg/dL) 191 H (70-110) mg/dL Plasma Lactic Acid Freeman (0.7-2.0) mmol/L Calcium (8.4-10.2) mg/dL Alkaline Phosphatase (38-126) U/L Total Protein (6.3-8.2) g/dL Albumin (3.5-5.0) g/dL 02/10/22 02/10/22 02/10/22 Range/Units 14:02 14:02 17:09 WBC (3.8-10.6) k/uL Neutrophils # (1.3-7.7) k/uL APTT (22.0-30.0) sec Carbon Dioxide 16 L (22-30) mmol/L BUN 23 H (9-20) mg/dL Creatinine 1.70 H (0.66-1.25) mg/dL Glucose 199 H (74-99) mg/dL POC Glucose (mg/dL) (70-110) mg/dL Plasma Lactic Acid Freeman 3.4 H* 3.6 H* (0.7-2.0) mmol/L Calcium 10.8 H (8.4-10.2) mg/dL Alkaline Phosphatase 203 H (38-126) U/L Total Protein 8.3 H (6.3-8.2) g/dL Albumin 5.3 H (3.5-5.0) g/dL 02/10/22 02/10/22 02/10/22 Range/Units 20:15 22:11 22:52 WBC (3.8-10.6) k/uL Neutrophils # (1.3-7.7) k/uL APTT (22.0-30.0) sec Carbon Dioxide (22-30) mmol/L BUN (9-20) mg/dL Creatinine (0.66-1.25) mg/dL Glucose (74-99) mg/dL POC Glucose (mg/dL) 135 H 160 H (70-110) mg/dL Plasma Lactic Acid Freeman 4.1 H* (0.7-2.0) mmol/L Calcium (8.4-10.2) mg/dL Alkaline Phosphatase (38-126) U/L Total Protein (6.3-8.2) g/dL Albumin (3.5-5.0) g/dL Assessment and Plan Plan: Acute small bowel obstruction Dehydration with acute kidney injury Hypotension and tachycardia Recent history of low anterior resection of the sigmoid colon on 12/14/2021 Underlying history of coronary artery disease Underlying history of chronic kidney disease stage III Underlying history of diverticulosis with previous history of acute diverticulitis Underlying history of tobacco use Underlying history of hypertension, patient was maintained on lisinopril, hydrochlorothiazide, amlodipine Underlying history of hyperlipidemia, patient was maintained on Pravachol and Zetia Underlying history of degenerative disc disease with chronic back pain patient was maintained on [place] for pain management Underlying history of gastroesophageal reflux disease Underlying history of depression patient was maintained on Celexa At this time patient is admitted to ICU, under surgical services Critical care consultation requested Nasogastric tube is in Patient was started on IV antibiotic Zosyn in the emergency room Home medication reviewed and are on hold at this time IV fluid boluses were given Labs reordered for this morning For DVT prophylaxis we will use subcu Lovenox For GI prophylaxis we'll use IV Protonix Will follow closely
[2022-02-11 09:23] LABS: Calcium 8.4 mg/dL (8.4-10.2); Potassium 5.5 mmol/L (3.5-5.1)
[2022-02-11 09:46] LABS: HCT 46.5 % (39.0-53.0); HGB 14.4 gm/dL (13.0-17.5); Hypochromasia Moderate; MCH 30.2 pg (25.0-35.0); Mean Platelet Volume 8.7; Platelet Count 301 k/uL (150-450); RBC 4.78 m/uL (4.30-5.90); RDW 11.7 % (11.5-15.5); WBC 19.6 k/uL (3.8-10.6)
[2022-02-11 09:49] LABS: MCV 97.2 fL (80.0-100.0)
[2022-02-11] MEDS: ENOXAPARIN 30 MG/0.3 ML SYRINGE SQ SCH (09:58)
[2022-02-11] MEDS: PANTOPRAZOLE 40 MG/10 ML VIAL IVP SCH (09:58)
--- NOTE | 2022-02-11 12:26 | P.CNPUL ---
History of Present Illness Consult date: 02/11/22 Requesting physician: Chuckie Rendon Reason for consult: other (Abdominal sepsis) Chief complaint: Abdominal pain History of present illness: This is a 71-year-old white male with history of coronary artery disease, fibromyalgia, dyslipidemia, previous PA, patient was admitted to the hospital yesterday with relatively acute onset of abdominal pain. Patient had one episode of nausea and vomiting, he was also diaphoretic. No fever no chills, no chest pain, no cough, no hemoptysis, denies any hematemesis, denies any melena. Patient is known to have history of diverticulosis, and back on December 14 2021, patient had anterior resection of sigmoid colon. By Dr. Rush. Patient was initially admitted to the medical floor, however last night I was made aware of the patient becoming more tachycardic, relatively hypotensive, and there was a concern about abdominal sepsis. His CT of the abdomen and pelvis showed findings consistent with small bowel obstruction. Patient also had leuko cytosis, elevated lactic acid, and positive Hemoccult stool. Considering the possibility of abdominal sepsis associated without small bowel obstruction, I recommended transferred to the ICU. Patient was given fluid boluses, 2 L, his IV fluid was increased, and overnight the patient did not require any pressors. He is empirically on Zosyn for potential abdominal sepsis. Surgical consultation is pending on this patient. This morning the patient seems to be doing well, continues to have some vague abdominal discomfort and mild tenderness. He had many bouts of diarrhea overnight, and he did have positive Hemoccult stools. However overall clinically the patient is significantly improved, and again did not require any pressors, his lactic acid level is coming down. Review of Systems Constitutional: Negative HEENT: Negative Cardiac: Negative Pulmonary: Negative GI: As noted in HPI Genitourinary: Negative Endocrine: Negative Hematologic: Negative Neurologic: Negative Psychiatric: Negative Skin: Negative Past Medical History Past Medical History: Coronary Artery Disease (CAD), Fibromyalgia, Hyperlipidemia, Hypertension, Myocardial Infarction ([place]), Osteoarthritis (OA), Renal Disease Additional Past Medical History / Comment(s): diverticulitis, constipation, decreased kidney function, chronic back pain, leg pain Last Myocardial Infarction Date:: 2002 History of Any Multi-Drug Resistant Organisms: None Reported Past Surgical History: Adenoidectomy, Bowel Resection, Heart Catheterization With Stent, Tonsillectomy Additional Past Surgical History / Comment(s): L knee surgery, lower anterior resection by Dr. Rush on 12/14/21 Past Anesthesia/Blood Transfusion Reactions: No Reported Reaction Additional Past Anesthesia/Blood Transfusion Reaction / Comment(s): no hx blood transfusion Date of Last Stent Placement:: 2002 Smoking Status: Former smoker - Past Family History Mother Family Medical History: Hypertension Medications and Allergies Home Medications Medication Instructions Recorded Confirmed Type Aspirin 81 mg PO HS 06/05/17 02/10/22 History Citalopram Hydrobromide [CeleXA] 40 mg PO QAM 06/05/17 02/10/22 History Ergocalciferol (Vitamin D2) 50,000 unit PO FR 06/05/17 02/10/22 History [Vitamin D2] Lisinopril/Hydrochlorothiazide 1 tab PO QAM 06/05/17 02/10/22 History [Zestoretic 20-12.5] Nitroglycerin Sl Tabs [Nitrostat] 0.4 mg SUBLINGUAL Q5M PRN 06/05/17 02/10/22 History Pravastatin Sodium [Pravachol] 20 mg PO HS 06/05/17 02/10/22 History amLODIPine [Norvasc] 10 mg PO HS 06/05/17 02/10/22 History Docusate [Colace] 100 mg PO BID 11/02/21 02/10/22 History Ezetimibe [Zetia] 10 mg PO HS 11/02/21 02/10/22 History HYDROcodone/APAP 10-325MG [[place] 1 tab PO TID 11/02/21 02/10/22 History 10-325] Pantoprazole [Protonix] 40 mg PO QAM 11/02/21 02/10/22 History Cetirizine HCl [Zyrtec] 10 mg PO DAILY 02/10/22 02/10/22 History Cyclobenzaprine [Flexeril] 10 mg PO HS PRN 02/10/22 02/10/22 History Ferrous Gluconate 324 mg PO Q2D 02/10/22 02/10/22 History Vitamin B Complex 1 cap PO DAILY 02/10/22 02/10/22 History Allergies Allergy/AdvReac Type Severity Reaction Status Date / Time beta blockers AdvReac Nausea & Uncoded 02/10/22 15:22 Vomiting, decreased Heart rate to rate of 35 Physical Exam Vitals: Vital Signs Temp Pulse Pulse Resp BP BP Pulse Ox 02/11/22 11:44 109 H 02/11/22 11:00 91 30 H 90/68 02/11/22 10:00 89 24 96/70 97 02/11/22 09:00 90 27 H 100/73 02/11/22 08:00 97.7 F 96 11 L 90/68 02/11/22 07:00 101 H 20 95/67 95 02/11/22 06:00 105 H 18 105/75 94 L 02/11/22 05:00 101 H 23 91/71 93 L 02/11/22 04:00 98.0 F 111 H 28 H 99/72 91 L 02/11/22 03:00 107 H 24 92/70 95 02/11/22 02:00 112 H 28 H 91/71 94 L 02/11/22 01:00 97.9 F 118 H 26 H 95/69 95 02/10/22 18:28 97.4 F L 109 H 18 108/85 97 02/10/22 17:45 97.6 F 93 16 139/96 99 02/10/22 13:37 95.6 F L 127 H 22 86/57 99 Intake and Output 02/10/22 02/11/22 02/11/22 22:59 06:59 14:59 Intake Total 1974 725 Output Total 190 400 Balance 1785 325 Intake: IV 1974 625 Piperacillin-Tazobactam 3 100 .375 gm In Sodium Chloride 0.9% 100 ml @ 25 mls/hr IVPB Q8HR RYDER Rx# :[id number] Sodium Chloride 0.9% 1, 875 625 000 ml @ 125 mls/hr IV . Q8H RYDER Rx#:[id number] Sodium Chloride 0.9% 1, 1000 000 ml @ 999 mls/hr IV . Q1H1M ONE Rx#:[id number] Intake, IV Titration 100 Amount Piperacillin-Tazobactam 3 100 .375 gm In Sodium Chloride 0.9% 100 ml @ 25 mls/hr IVPB Q8HR RYDER Rx# :[id number] Output: Urine 190 400 Other: # Voids 1 # Bowel Movements 2 1 Weight 72.575 kg 73.8 kg Physical Exam: Revealed a 71-year-old white male in no distress. Head: Atraumatic, normocephalic. HEENT:[Neck is supple.] [No neck masses.] [No thyromegaly.] [No JVD.] Chest: [Clear throughout, no crackles, no rhonchi, no wheezes.] Cardiac Exam: [Normal S1 and S2, no S3 gallop, no murmur.] Abdomen: [Soft, slightly tender, no rebound no guarding, good bowel sounds, no megaly. Extremities: [No clubbing, no edema, no cyanosis.] Neurological Exam: [No focal neurologic deficit.] Alert oriented 3. Psychiatric: Normal mood, affect and normal mental status examination. Skin: No rashes. Musculoskeletal: No deformities and no limitation in range of motion Results - Laboratory Findings CBC and BMP: 02/11/22 07:55 02/11/22 07:55 PT/INR, D-dimer PT 10.3 sec (9.0-12.0) 02/10/22 14:02 INR 0.9 (<1.2) 02/10/22 14:02 Abnormal lab findings: Abnormal Labs 02/10/22 02/10/22 02/10/22 13:58 14:02 14:02 WBC 21.9 H Neutrophils # 16.8 H APTT 21.8 L Potassium Chloride Carbon Dioxide BUN Creatinine Glucose POC Glucose (mg/dL) 191 H Plasma Lactic Acid Freeman Calcium Alkaline Phosphatase Total Protein Albumin 02/10/22 02/10/22 02/10/22 14:02 14:02 17:09 WBC Neutrophils # APTT Potassium Chloride Carbon Dioxide 16 L BUN 23 H Creatinine 1.70 H Glucose 199 H POC Glucose (mg/dL) Plasma Lactic Acid Freeman 3.4 H* 3.6 H* Calcium 10.8 H Alkaline Phosphatase 203 H Total Protein 8.3 H Albumin 5.3 H 02/10/22 02/10/22 02/10/22 20:15 22:11 22:52 WBC Neutrophils # APTT Potassium Chloride Carbon Dioxide BUN Creatinine Glucose POC Glucose (mg/dL) 135 H 160 H Plasma Lactic Acid Freeman 4.1 H* Calcium Alkaline Phosphatase Total Protein Albumin 02/11/22 02/11/22 02/11/22 07:55 07:55 07:55 WBC 19.6 H Neutrophils # APTT Potassium 5.5 H Chloride 117 H Carbon Dioxide 17 L BUN 34 H Creatinine 1.90 H Glucose 107 H POC Glucose (mg/dL) Plasma Lactic Acid Freeman 3.1 H* Calcium Alkaline Phosphatase Total Protein Albumin - Diagnostic Findings Chest x-ray: image reviewed (No evidence of active disease.) Additional studies: CT of abdomen and pelvis showed diffuse fluid-filled prominent small bowel loops , consistent with partial obstruction. Assessment and Plan Assessment: Impression: Acute partial small bowel obstruction Possible abdominal sepsis Recent history of low anterior sigmoid resection. History of diverticulosis. Coronary arteriosclerosis. Dyslipidemia. Chronic kidney disease stage III. Benign essential hypertension. Degenerative joint disease. History of depression. Recommendation: Continue to monitor in the ICU for the next 24 hours. Continue nasogastric tube to suction. General surgery to evaluate the patient on consultation. Continue to monitor hemoglobin and hematocrit for positive Hemoccult stools. Check C. difficile toxin. Continue DVT prophylaxis and GI prophylaxis Continue antibiotics/Zosyn empirically. Close monitoring of renal profile. Continue IV fluids. We will continue to follow for the next 24 hours while in ICU. Time with Patient: Greater than 30
[2022-02-11 13:01] LABS: Band Neutrophils % 27 %; Lymphocytes # (M) 1.18 k/uL (1.0-4.8); Metamyelocytes % 1 %; Monocytes # (M) 1.37 k/uL (0-1.0); Myelocytes % 1 %; Neutrophils % (M) 61 %; Nucleated Red Blood Cells 0 /100 WBC (0-0); Total Cells Counted 200
[2022-02-11] MEDS ORDERED: methylPREDNISolone SOD SUCCI 125 MG/2 ML VIAL IV STA (17:07)
--- NOTE | 2022-02-11 18:23 | P.GSHP ---
History of Present Illness H&P Date: 02/11/22 REASON FOR CONSULTATION: Abdominal pain HISTORY OF PRESENT ILLNESS: The patient is a 71 year old male presented to the hospital with abdominal pain diffuse however localizing to the right upper derrick drant for over 2 days. Reports constipation at home for several days. His history significant for lower anterior resection for diverticulitis 12/14/2021. Patient had a nasogastric tube placed since admission with minimal output. Separately, upon admission, white blood cell count was elevated over 21,000. Patient triggered sepsis protocol was transferred to the intensive care unit. Patient was transiently hypotensive. Since hospitalized, patient has had multiple bowel movements over 15 with some blood per discussion with nursing team. Patient reports hunger. Due to sepsis, generalized abdominal pain and severe diarrhea, patient is admitted. PAST MEDICAL HISTORY: See list and reviewed PAST SURGICAL HISTORY: See list and reviewed MEDICATIONS: See list and reviewed ALLERGIES: See list and reviewed SOCIAL HISTORY: See list and reviewed FAMILY HISTORY: See list and reviewed REVIEW OF ORGAN SYSTEMS: CONSTITUTIONAL: No fevers or chills. No recent weight loss. EYES: Denies any trouble with vision. No glasses. HEENT: No difficulties with hearing. No nosebleeds. No difficulty swallowing. RESPIRATORY: Denies pneumonia. Denies any troubles with breathing or dyspnea on exertion. CARDIOVASCULAR: Denies any chest pain, palpitations, or recent heart attacks. Has cardiomyopathy. Has hyperlipidemia. Has hypertensive heart disease. GASTROINTESTINAL: Has fatty food intolerance. Has change in bowel habits and gas bloat. Has gastroesophageal reflux disease. GENITOURINARY: Denies any blood in urine or increased urinary frequency. NEUROLOGICAL: Denies any numbness or tingling along the distal extremities. No seizure disorders or headaches. MUSCULOSKELETAL: Has back pain, stiffness or joint arthritis. Has chronic pain syndrome. SKIN: No current skin cancer. No rash. PSYCHIATRIC: Has depressive disorder. ENDOCRINE: Denies current thyroid disorders. Denies any blood sugar glucose intolerance. HEME/LYMPHATIC: Denies any lumps and bumps around the neck. No recent deep venous thrombosis. ALLERGY/IMMUNOLOGY: No immunoglobulin therapy. No immune deficiencies. BREAST: Denies current breast lumps, pain or nipple discharge. PHYSICAL EXAM: VITALS: Reviewed CONSTITUTIONAL: Well developed and in no acute distress. EYES: Conjuctivae without sclera icterus. Extraocular movements grossly intact. HEAD, EARS, NOSE, THROAT: Moist buccal mucosa. Head is atraumatic, normocephalic. Hears conversational speech. No nasal drainage. NECK: Supple. No JV distention. No thyroidomegaly. RESPIRATORY: Non-labored respirations and equal bilateral excursions. No gross wheezes. CARDIOVASCULAR: Palpable 2+ radial pulses. ABDOMEN: Tender right upper quadrant. No peritonitis. Has distention. LYMPH: No neck lymphadenopathy. MUSCULOSKELETAL: Nail and fingers with good capillary refill. SKIN: Warm and well perfused with good skin turgor. NEUROLOGIC: Cranial nerves II through XII grossly intact. No focal or lateralizing signs. PSYCH: Appropriate affect. Alert and oriented to person, place and time. Displays appropriate insight. CLINCAL LABS: Reviewed. WBC elevated at 21.9 on admission. Hemoglobin on admission 15.9-14.4. Creatinine elevated 1.9. Lactic acid elevated over 3.4. Calcium elevated. Alkaline phosphatase elevated. Albumin elevated. IMAGING: Independently reviewed. CT of the abdomen and pelvis demonstrates diffuse dilation of small bowel and colon large bowel with moderate fecal matter. Anastomosis without abscess. Presence of coloanal anastomosis. This is my independent interpretation. RADIOLOGY: Report reviewed. CT abdomen and pelvis confirms small bowel fluid with dilation including moderate fecal material throughout the colon and extended to the anastomosis. RECORDS: previous old records reviewed of low anterior resection 12/14/2021. Hospitalization was uneventful. ASSESSMENT: 1. Abdominal pain with ileus 2. Severe constipation 3. Lactic acidosis 4. Ileus 5. Severe dehydration 6. Hypercalcemia 7. Right upper quadrant abdominal pain PLAN: 1. IV fluid hydration for severe lactic acidosis 2. May discontinue nasogastric tube as minimal output less than 50 mL identified 3. C. diff assay pending however due to moderate fecal retention, multiple bowel movements expected. 4. Recommend right upper quadrant ultrasound due to right upper quadrant abdominal pain 5. May benefit from lower endoscopy due to severe fecal retainment at the level anastomosis per discussion with index surgeon. ADVANCE DIRECTIVE: Thank you for this kind consultation. Past Medical History Past Medical History: Coronary Artery Disease (CAD), Fibromyalgia, Hyperlipide joaquin, Hypertension, Myocardial Infarction ([place]), Osteoarthritis (OA), Renal Disease Additional Past Medical History / Comment(s): diverticulitis, constipation, decreased kidney function, chronic back pain, leg pain Last Myocardial Infarction Date:: 2002 History of Any Multi-Drug Resistant Organisms: None Reported Past Surgical History: Adenoidectomy, Bowel Resection, Heart Catheterization With Stent, Tonsillectomy Additional Past Surgical History / Comment(s): L knee surgery, lower anterior resection by Dr. Rush on 12/14/21 Past Anesthesia/Blood Transfusion Reactions: No Reported Reaction Additional Past Anesthesia/Blood Transfusion Reaction / Comment(s): no hx blood transfusion Date of Last Stent Placement:: 2002 Smoking Status: Former smoker - Past Family History Mother Family Medical History: Hypertension Medications and Allergies Home Medications Medication Instructions Recorded Confirmed Type Aspirin 81 mg PO HS 06/05/17 02/10/22 History Citalopram Hydrobromide [CeleXA] 40 mg PO QAM 06/05/17 02/10/22 History Ergocalciferol (Vitamin D2) 50,000 unit PO FR 06/05/17 02/10/22 History [Vitamin D2] Lisinopril/Hydrochlorothiazide 1 tab PO QAM 06/05/17 02/10/22 History [Zestoretic 20-12.5] Nitroglycerin Sl Tabs [Nitrostat] 0.4 mg SUBLINGUAL Q5M PRN 06/05/17 02/10/22 History Pravastatin Sodium [Pravachol] 20 mg PO HS 06/05/17 02/10/22 History amLODIPine [Norvasc] 10 mg PO HS 06/05/17 02/10/22 History Docusate [Colace] 100 mg PO BID 11/02/21 02/10/22 History Ezetimibe [Zetia] 10 mg PO HS 11/02/21 02/10/22 History HYDROcodone/APAP 10-325MG [[place] 1 tab PO TID 11/02/21 02/10/22 History 10-325] Pantoprazole [Protonix] 40 mg PO QAM 11/02/21 02/10/22 History Cetirizine HCl [Zyrtec] 10 mg PO DAILY 02/10/22 02/10/22 History Cyclobenzaprine [Flexeril] 10 mg PO HS PRN 02/10/22 02/10/22 History Ferrous Gluconate 324 mg PO Q2D 02/10/22 02/10/22 History Vitamin B Complex 1 cap PO DAILY 02/10/22 02/10/22 History Allergies Allergy/AdvReac Type Severity Reaction Status Date / Time beta blockers AdvReac Nausea & Uncoded 02/10/22 15:22 Vomiting, decreased Heart rate to rate of 35 Surgical - Exam Vital Signs Temp Pulse Resp BP Pulse Ox 95.6 F L 127 H 22 86/57 99 02/10/22 13:37 02/10/22 13:37 02/10/22 13:37 02/10/22 13:37 02/10/22 13:37 Results - Labs 02/11/22 07:55 02/11/22 07:55 Abnormal Lab Results - Last 24 Hours (Table) 02/10/22 02/10/22 02/10/22 Range/Units 13:58 14:02 14:02 WBC 21.9 H (3.8-10.6) k/uL Neutrophils # 16.8 H (1.3-7.7) k/uL APTT 21.8 L (22.0-30.0) sec Potassium (3.5-5.1) mmol/L Chloride (98-107) mmol/L Carbon Dioxide (22-30) mmol/L BUN (9-20) mg/dL Creatinine (0.66-1.25) mg/dL Glucose (74-99) mg/dL POC Glucose (mg/dL) 191 H (70-110) mg/dL Plasma Lactic Acid Freeman (0.7-2.0) mmol/L Calcium (8.4-10.2) mg/dL Alkaline Phosphatase (38-126) U/L Total Protein (6.3-8.2) g/dL Albumin (3.5-5.0) g/dL 02/10/22 02/10/22 02/10/22 Range/Units 14:02 14:02 17:09 WBC (3.8-10.6) k/uL Neutrophils # (1.3-7.7) k/uL APTT (22.0-30.0) sec Potassium (3.5-5.1) mmol/L Chloride (98-107) mmol/L Carbon Dioxide 16 L (22-30) mmol/L BUN 23 H (9-20) mg/dL Creatinine 1.70 H (0.66-1.25) mg/dL Glucose 199 H (74-99) mg/dL POC Glucose (mg/dL) (70-110) mg/dL Plasma Lactic Acid Freeman 3.4 H* 3.6 H* (0.7-2.0) mmol/L Calcium 10.8 H (8.4-10.2) mg/dL Alkaline Phosphatase 203 H (38-126) U/L Total Protein 8.3 H (6.3-8.2) g/dL Albumin 5.3 H (3.5-5.0) g/dL 02/10/22 02/10/22 02/10/22 Range/Units 20:15 22:11 22:52 WBC (3.8-10.6) k/uL Neutrophils # (1.3-7.7) k/uL APTT (22.0-30.0) sec Potassium (3.5-5.1) mmol/L Chloride (98-107) mmol/L Carbon Dioxide (22-30) mmol/L BUN (9-20) mg/dL Creatinine (0.66-1.25) mg/dL Glucose (74-99) mg/dL POC Glucose (mg/dL) 135 H 160 H (70-110) mg/dL Plasma Lactic Acid Freeman 4.1 H* (0.7-2.0) mmol/L Calcium (8.4-10.2) mg/dL Alkaline Phosphatase (38-126) U/L Total Protein (6.3-8.2) g/dL Albumin (3.5-5.0) g/dL 02/11/22 02/11/22 02/11/22 Range/Units 07:55 07:55 07:55 WBC 19.6 H (3.8-10.6) k/uL Neutrophils # (1.3-7.7) k/uL APTT (22.0-30.0) sec Potassium 5.5 H (3.5-5.1) mmol/L Chloride 117 H (98-107) mmol/L Carbon Dioxide 17 L (22-30) mmol/L BUN 34 H (9-20) mg/dL Creatinine 1.90 H (0.66-1.25) mg/dL Glucose 107 H (74-99) mg/dL POC Glucose (mg/dL) (70-110) mg/dL Plasma Lactic Acid Freeman 3.1 H* (0.7-2.0) mmol/L Calcium (8.4-10.2) mg/dL Alkaline Phosphatase (38-126) U/L Total Protein (6.3-8.2) g/dL Albumin (3.5-5.0) g/dL Diabetes panel 02/10/22 02/11/22 Range/Units 14:02 07:55 Sodium 138 142 (137-145) mmol/L Potassium 3.8 5.5 H (3.5-5.1) mmol/L Chloride 105 117 H (98-107) mmol/L Carbon Dioxide 16 L 17 L (22-30) mmol/L BUN 23 H 34 H (9-20) mg/dL Creatinine 1.70 H 1.90 H (0.66-1.25) mg/dL Glucose 199 H 107 H (74-99) mg/dL Calcium 10.8 H 8.4 (8.4-10.2) mg/dL AST 27 (17-59) U/L ALT 14 (4-49) U/L Alkaline Phosphatase 203 H (38-126) U/L Total Protein 8.3 H (6.3-8.2) g/dL Albumin 5.3 H (3.5-5.0) g/dL Calcium panel 02/10/22 02/11/22 Range/Units 14:02 07:55 Calcium 10.8 H 8.4 (8.4-10.2) mg/dL Albumin 5.3 H (3.5-5.0) g/dL Pituitary panel 02/10/22 02/11/22 Range/Units 14:02 07:55 Sodium 138 142 (137-145) mmol/L Potassium 3.8 5.5 H (3.5-5.1) mmol/L Chloride 105 117 H (98-107) mmol/L Carbon Dioxide 16 L 17 L (22-30) mmol/L BUN 23 H 34 H (9-20) mg/dL Creatinine 1.70 H 1.90 H (0.66-1.25) mg/dL Glucose 199 H 107 H (74-99) mg/dL Calcium 10.8 H 8.4 (8.4-10.2) mg/dL Adrenal panel 02/10/22 02/11/22 Range/Units 14:02 07:55 Sodium 138 142 (137-145) mmol/L Potassium 3.8 5.5 H (3.5-5.1) mmol/L Chloride 105 117 H (98-107) mmol/L Carbon Dioxide 16 L 17 L (22-30) mmol/L BUN 23 H 34 H (9-20) mg/dL Creatinine 1.70 H 1.90 H (0.66-1.25) mg/dL Glucose 199 H 107 H (74-99) mg/dL Calcium 10.8 H 8.4 (8.4-10.2) mg/dL Total Bilirubin 1.0 (0.2-1.3) mg/dL AST 27 (17-59) U/L ALT 14 (4-49) U/L Alkaline Phosphatase 203 H (38-126) U/L Total Protein 8.3 H (6.3-8.2) g/dL Albumin 5.3 H (3.5-5.0) g/dL
[2022-02-11] MEDS: metroNIDAZOLE-NS PMX 500 MG in SALINE 1 100ML.BAG IVPB SCH ×2 (18:46→23:47)
[2022-02-12 03:55] LABS: Calcium 7.6 mg/dL (8.4-10.2)
[2022-02-12 03:57] LABS: HCT 44.8 % (39.0-53.0); HGB 14.5 gm/dL (13.0-17.5); Hypochromasia Slight; MCH 30.9 pg (25.0-35.0); MCHC 32.4 g/dL (31.0-37.0); MCV 95.4 fL (80.0-100.0); Platelet Count 205 k/uL (150-450); RDW 11.8 % (11.5-15.5); WBC 20.5 k/uL (3.8-10.6)
[2022-02-12] MEDS: MORPHINE SULFATE 4 MG/ML SYRINGE IV PRN (04:13)
[2022-02-12 05:03] LABS: Potassium 5.3 mmol/L (3.5-5.1)
[2022-02-12 05:59] LABS: Band Neutrophils % 60 %; Lymphocytes # (M) 1.44 k/uL (1.0-4.8); Metamyelocytes # (M) 0.62 k/uL (0); Metamyelocytes % 3 %; Monocytes # (M) 0.82 k/uL (0-1.0); Neutrophils % (M) 28 %; Nucleated Red Blood Cells 0 /100 WBC (0-0); Total Cells Counted 200
[2022-02-12 06:04] LABS: Poikilocytosis (M) Present
[2022-02-12] MEDS: SODIUM CHLORIDE 0.9% 1,000 ML IV SCH ×2 (07:29→16:02)
[2022-02-12] MEDS: metroNIDAZOLE-NS PMX 500 MG in SALINE 1 100ML.BAG IVPB SCH ×2 (07:29→16:28)
[2022-02-12] MEDS: ENOXAPARIN 30 MG/0.3 ML SYRINGE SQ SCH ×2 (08:54→09:01)
[2022-02-12] MEDS: PANTOPRAZOLE 40 MG/10 ML VIAL IVP SCH (08:54)
[2022-02-12] MEDS ORDERED: NITROGLYCERIN SL TABS 0.4 MG TAB SUBLINGUAL PRN (09:13)
--- NOTE | 2022-02-12 09:13 | P.PN ---
Subjective Progress Note Date: 02/12/22 Phoenix Amaro, is a 71 year-old male who presented to [facility] emergency room with a chief complaint of abdominal pain, patient describes a diffuse abdominal pain that started 1 day prior to presentation and was worsening, he had nausea and 1 episode of vomiting he was diaphoretic otherwise he denies any fever or chills no headache or dizziness no chest pain no shortness of breath no cough no diarrhea no blood in the stools and no urinary symptoms. Patient has a known history of diverticulitis he was admitted by Dr. Rush on 12/14/2021 and underwent low anterior resection of sigmoid colon. He states that he was doing well until the day prior to this admission. He was evaluated in the emergency room vital examination on presentation revealed a temperature of 95.6 pulse 127 respiration 22 blood pressure 86/57 pulse ox 99% on room air Laboratory data revealed a white blood count of 21.9 hemoglobin 15.8 platelet count 416 sodium 138 potassium 3.8 chloride 105 CO2 26 BUN 23 creatinine 1.7 lactic acid was 4.1 Testing in the emergency room revealed computed tomography scan of the abdomen and pelvis was done in the emergency room and revealed diffuse fluid-filled prominent small bowel loops with more prominence and fecal debris filled colon to the level of the sigmoid anastomosis. Patient was admitted to medical floor for further evaluation and treatment. However blood pressure was low and patient developed worsening tachycardia he was transferred to intensive care unit shortly after admission. On 02/12/2022 patient was seen and examined in the ICU he is alert and oriented 3 in no apparent distress, NG tube has been removed, he is still complaining of some abdominal discomfort, he is complaining of multiple diarrhea bowel movements this morning, otherwise he denies any complaints there is no fever or chills no headache or dizziness no chest pain no shortness of breath no cough no nausea or vomiting and no urinary symptoms, patient will be transferred out of ICU today. Per surgery recommendation will check abdominal ultrasound to due to pain in the right upper quadrant. Objective - Vital Signs Vital signs: Vital Signs Temp 97.0 F L 02/12/22 08:00 Pulse 105 H 02/12/22 08:00 Resp 28 H 02/12/22 08:00 BP 114/88 02/12/22 08:00 Pulse Ox 95 02/12/22 08:00 FiO2 Intake & Output 02/11/22 02/12/22 02/12/22 18:59 06:59 18:59 Intake Total 1662.5 1725 125 Output Total 1175 600 Balance 487.5 1125 125 Weight 74.1 kg Intake: IV 1512.5 1625 125 Piperacillin-Tazobactam 3 12.5 .375 gm In Sodium Chloride 0.9% 100 ml @ 25 mls/hr IVPB Q8HR [facility] Rx# :[id number] Sodium Chloride 0.9% 1, 1500 1625 125 000 ml @ 125 mls/hr IV . Q8H REPLACED BY [facility] Rx#:[id number] Intake, IV Titration 150 100 Amount Piperacillin-Tazobactam 3 100 .375 gm In Sodium Chloride 0.9% 100 ml @ 25 mls/hr IVPB Q8HR [facility] Rx# :[id number] cefTRIAXone 2 gm In 50 Sodium Chloride 0.9% 50 ml @ 100 mls/hr IVPB Q24HR [facility] Rx#:[id number] metroNIDAZOLE-NS PMX 500 100 mg In Saline 1 100ml.bag @ 100 mls/hr IVPB Q8HR [facility] Rx#:[id number] Output: Gastric Drainage 50 Urine 925 600 Stool 200 Other: # Voids 1 # Bowel Movements 1 1 1 - Exam In general patient is alert and oriented x 3 in no distress HEENT head normocephalic and atraumatic Neck is supple no JVD no goiter no lymphadenopathy no carotid bruit Chest examination is clear to auscultation no crackles no wheezing Cardiac exam reveals regular heart sounds S1 and S2 no gallops no murmurs Abdomen is soft with mild diffuse tenderness no organomegaly no palpable masses there is hyperactive bowel sounds Extremity exam reveals no edema no cyanosis or clubbing Neurological examination reveals no gross focal deficits - Labs CBC & Chem 7: 02/12/22 03:29 02/12/22 03:29 Labs: Abnormal Lab Results - Last 24 Hours (Table) 02/11/22 02/11/22 02/11/22 Range/Units 07:55 07:55 07:55 WBC 19.6 H (3.8-10.6) k/uL Neutrophils # (Manual) 17.20 H (1.3-7.7) k/uL Monocytes # (Manual) 1.37 H (0-1.0) k/uL Metamyelocytes # (Man) 0.20 H (0) k/uL Myelocytes # (Manual) 0.20 H (0) k/uL Potassium 5.5 H (3.5-5.1) mmol/L Chloride 117 H (98-107) mmol/L Carbon Dioxide 17 L (22-30) mmol/L BUN 34 H (9-20) mg/dL Creatinine 1.90 H (0.66-1.25) mg/dL Glucose 107 H (74-99) mg/dL Plasma Lactic Acid Freeman 3.1 H* (0.7-2.0) mmol/L Calcium (8.4-10.2) mg/dL 02/12/22 02/12/22 Range/Units 03:29 03:29 WBC 20.5 H (3.8-10.6) k/uL Neutrophils # (Manual) 18.00 H (1.3-7.7) k/uL Monocytes # (Manual) (0-1.0) k/uL Metamyelocytes # (Man) 0.62 H (0) k/uL Myelocytes # (Manual) (0) k/uL Potassium 5.3 H (3.5-5.1) mmol/L Chloride 117 H (98-107) mmol/L Carbon Dioxide 15 L (22-30) mmol/L BUN 34 H (9-20) mg/dL Creatinine 1.61 H (0.66-1.25) mg/dL Glucose 121 H (74-99) mg/dL Plasma Lactic Acid Freeman (0.7-2.0) mmol/L Calcium 7.6 L (8.4-10.2) mg/dL Microbiology - Last 24 Hours (Table) 02/10/22 12:50 Blood Culture - Preliminary Blood No Growth after 24 hours 02/10/22 13:00 Blood Culture - Preliminary Blood No Growth after 24 hours Assessment and Plan Plan: Acute small bowel obstruction Dehydration with acute kidney injury Hypotension and tachycardia Recent history of low anterior resection of the sigmoid colon on 12/14/2021 Underlying history of coronary artery disease Underlying history of chronic kidney disease stage III Underlying history of diverticulosis with previous history of acute diverticulitis Underlying history of tobacco use Underlying history of hypertension, patient was maintained on lisinopril, hydrochlorothiazide, amlodipine Underlying history of hyperlipidemia, patient was maintained on Pravachol and Zetia Underlying history of degenerative disc disease with chronic back pain patient was maintained on [place] for pain management Underlying history of gastroesophageal reflux disease Underlying history of depression patient was maintained on Celexa At this time patient is admitted to ICU, under surgical services Critical care consultation requested Nasogastric tube is in Patient was started on IV antibiotic Zosyn in the emergency room Home medication reviewed and are on hold at this time IV fluid boluses were given Labs reordered for this morning For DVT prophylaxis we will use subcu Lovenox For GI prophylaxis we'll use IV Protonix Will follow closely
--- NOTE | 2022-02-12 11:13 | P.PN ---
Subjective Progress Note Date: 02/12/22 Principal diagnosis: Abdominal sepsis, partial small bowel obstruction This is a 71-year-old white male with history of coronary artery disease, fibromyalgia, dyslipidemia, previous OH, patient was admitted to the hospital yesterday with relatively acute onset of abdominal pain. Patient had one episode of nausea and vomiting, he was also diaphoretic. No fever no chills, no chest pain, no cough, no hemoptysis, denies any hematemesis, denies any melena. Patient is known to have history of diverticulosis, and back on December 14 2021, patient had anterior resection of sigmoid colon. By Dr. Rush. Patient was initially admitted to the medical floor, however last night I was made aware of the patient becoming more tachycardic, relatively hypotensive, and there was a concern about abdominal sepsis. His CT of the abdomen and pelvis showed findings consistent with small bowel obstruction. Patient also had leukocytosis, elevated lactic acid, and positive Hemoccult stool. Considering the possibility of abdominal sepsis associated without small bowel obstruction, I recommended transferred to the ICU. Patient was given fluid boluses, 2 L, his IV fluid was increased, and overnight the patient did not require any pressors. He is empirically on Zosyn for potential abdominal sepsis. Surgical consultation is pending on this patient. This morning the patient seems to be doing well, continues to have some vague abdominal discomfort and mild tenderness. He had many bouts of diarrhea overnight, and he did have positive Hemoccult stools. However overall clinically the patient is significantly improved, and again did not require any pressors, his lactic acid level is coming down. Reevaluated today on 02/12/22, patient seems to be doing much better today. His abdominal symptoms have resolved, patient continues to have intermittent episodes of diarrhea. No nausea no vomiting no abdominal pain. Yesterday the patient developed some tongue swelling, I was notified by the nurse, and I discontinued his Zosyn recommended Flagyl and Rocephin instead. Patient continues to do well today, no further tongue swelling noted. He did receive 1 dose of Solu-Medrol. Patient continues to have leukocytosis with WBC count 20.5, his electrolytes are relatively unremarkable, continues to have low bicarb of 15, renal profile is improving, BUN is 34 creatinine is down to 1.61 from creatinine of 1.90 yesterday. C. difficile screen is negative. Patient was se en by general surgery yesterday, recommended mostly IV fluids, discontinue nasogastric tube, right upper quadrant ultrasound, and I recommended lower endoscopy possibly sometime next week. Objective - Vital Signs Vital signs: Vital Signs Temp 97.0 F L 02/12/22 08:00 Pulse 93 02/12/22 10:00 Resp 28 H 02/12/22 08:00 BP 121/86 02/12/22 10:00 Pulse Ox 96 02/12/22 10:00 FiO2 Intake & Output 02/11/22 02/12/22 02/12/22 18:59 06:59 18:59 Intake Total 1662.5 1725 425 Output Total 1175 600 Balance 487.5 1125 425 Weight 74.1 kg Intake: IV 1512.5 1625 425 Piperacillin-Tazobactam 3 12.5 .375 gm In Sodium Chloride 0.9% 100 ml @ 25 mls/hr IVPB Q8HR [facility] Rx# :[id number] Sodium Chloride 0.9% 1, 1500 1625 425 000 ml @ 125 mls/hr IV . Q8H [facility] Rx#:[id number] Intake, IV Titration 150 100 Amount Piperacillin-Tazobactam 3 100 .375 gm In Sodium Chloride 0.9% 100 ml @ 25 mls/hr IVPB Q8HR [facility] Rx# :[id number] cefTRIAXone 2 gm In 50 Sodium Chloride 0.9% 50 ml @ 100 mls/hr IVPB Q24HR [facility] Rx#:[id number] metroNIDAZOLE-NS PMX 500 100 mg In Saline 1 100ml.bag @ 100 mls/hr IVPB Q8HR [facility] Rx#:[id number] Output: Gastric Drainage 50 Urine 925 600 Stool 200 Other: Voiding Method Bedpan # Voids 1 1 # Bowel Movements 1 1 1 - Exam Physical Exam: Revealed a 71-year-old white male in no distress. Head: Atraumatic, normocephalic. HEENT:[Neck is supple.] [No neck masses.] [No thyromegaly.] [No JVD.] Chest: [Clear throughout, no crackles, no rhonchi, no wheezes.] Cardiac Exam: [Normal S1 and S2, no S3 gallop, no murmur.] Abdomen: [Soft, nontender, no rebound no guarding, good bowel sounds, no megaly. Extremities: [No clubbing, no edema, no cyanosis.] Neurological Exam: [No focal neurologic deficit.] Alert oriented 3. Psychiatric: Normal mood, affect and normal mental status examination. Skin: No rashes. Musculoskeletal: No deformities and no limitation in range of motion - Labs CBC & Chem 7: 02/12/22 03:29 02/12/22 03:29 Labs: Abnormal Lab Results - Last 24 Hours (Table) 02/11/22 02/12/22 02/12/22 Range/Units 07:55 03:29 03:29 WBC 20.5 H (3.8-10.6) k/uL Neutrophils # (Manual) 17.20 H 18.00 H (1.3-7.7) k/uL Monocytes # (Manual) 1.37 H (0-1.0) k/uL Metamyelocytes # (Man) 0.20 H 0.62 H (0) k/uL Myelocytes # (Manual) 0.20 H (0) k/uL Potassium 5.3 H (3.5-5.1) mmol/L Chloride 117 H (98-107) mmol/L Carbon Dioxide 15 L (22-30) mmol/L BUN 34 H (9-20) mg/dL Creatinine 1.61 H (0.66-1.25) mg/dL Glucose 121 H (74-99) mg/dL Calcium 7.6 L (8.4-10.2) mg/dL Microbiology - Last 24 Hours (Table) 02/10/22 12:50 Blood Culture - Preliminary Blood No Growth after 24 hours 02/10/22 13:00 Blood Culture - Preliminary Blood No Growth after 24 hours Assessment and Plan Assessment: Impression: Acute partial small bowel obstruction Possible abdominal sepsis Recent history of low anterior sigmoid resection. History of diverticulosis. Coronary arteriosclerosis. Dyslipidemia. Chronic kidney disease stage III. Benign essential hypertension. Degenerative joint disease. History of depression. Recommendation: Transfer patient out of the ICU Nasogastric tube has been discontinued upon the recommendation of general surgery on the case. Continue to monitor CBC. Including hemoglobin and WBC count. Check C. difficile toxin. Continue DVT prophylaxis and GI prophylaxis Continue antibiotics/, recommended ID consultation, patient is presently on Flagyl and Rocephin Close monitoring of renal profile. Continue IV fluids. We will continue to follow Time with Patient: Less than 30
[2022-02-12] MEDS: HYDROcodone/APAP 10-325MG 1 EACH TAB PO SCH ×2 (16:28→20:57)
--- NOTE | 2022-02-12 18:55 | US ---
EXAMINATION TYPE: US abdomen complete DATE OF EXAM: 02/12/2022 COMPARISON: CT & US 2021 CLINICAL HISTORY: abdominal pain. TECHNIQUE: Multiple sonographic images of the abdomen are obtained. Exam done portable FINDINGS: EXAM MEASUREMENTS: Liver Length: 14.5 cm Gallbladder Wall: 0.2 cm CBD: 0.4 cm Spleen: 9.2 cm Right Kidney: 9.3 x 4.6 x 4.3 cm Left Kidney: 9.4 x 4.4 x 4.7 cm Pancreas: obscured by overlying bowel gas Liver: scanned intercostally, visualized portions wnl Gallbladder: sludge Evidence for sonographic Newman's sign: yes CBD: visualized portions wnl Spleen: visualized portions wnl Right Kidney: wnl Left Kidney: visualized portions wnl Upper IVC: wnl Abd Aorta: obscured by overlying bowel gas Small amount of fluid seen in RLQ IMPRESSION: There is some echogenic bile. No gallstones or dilated ducts.
[2022-02-12] MEDS: ASPIRIN 81 MG PO SCH (20:57)
[2022-02-12] MEDS: PRAVASTATIN SODIUM 20 MG TAB PO SCH (20:57)
[2022-02-12] MEDS: EZETIMIBE 10 MG TAB PO SCH (20:57)
--- NOTE | 2022-02-12 22:34 | P.PN ---
Subjective Progress Note Date: 02/12/22 CHIEF COMPLAINT: Abdominal pain HISTORY OF PRESENT ILLNESS: The patient is a 71 year old male who presented with abdominal pain and constipation with elevated WBC. He complains of right upper quadrant pain. At the time of assessment, he was undergoing ultrasound of the abdomen at bedside. REVIEW OF ORGAN SYSTEMS: No fever or chills. No chest pain. No shortness of breath. PHYSICAL EXAM: VITALS: Reviewed CONSTITUTIONAL: Well developed and in no acute distress. EYES: Conjuctivae without sclera icterus. Extraocular movements grossly intact. HEAD, EARS, NOSE, THROAT: Moist buccal mucosa. Head is atraumatic, normocephalic. Hears conversational speech. No nasal drainage. RESPIRATORY: Non-labored respirations and equal bilateral excursions. No gross wheezes. CARDIOVASCULAR: Palpable 2+ radial pulses. ABDOMEN: Tender right upper quadrant. MUSCULOSKELETAL: No clubbing or cyanosis. SKIN: Warm and well perfused with good skin turgor. NEUROLOGIC: Cranial nerves II through XII grossly intact. No focal or lateralizing signs. PSYCH: Appropriate affect. Alert and oriented to person, place and time. Displays appropriate insight. CLINCAL LABS: Reviewed. WBC elevated at 21.9 on admission now 20.5 Hemoglobin on admission 15.9-14.4, now 14.5 and stable. Potassium elevated 5.3. Creatinine down 1.90 to 1.61. C Diff negative. IMAGING: Independently reviewed. Ultrasound with gallbladder sludge. This is my independent interpretation. Positive newman's sign. ASSESSMENT: 1. Abdominal pain with ileus 2. Severe constipation 3. Lactic acidosis 4. Ileus 5. Severe dehydration 6. Hypercalcemia 7. Right upper quadrant abdominal pain PLAN: 1. During assessment, he had RUQ ultrasound with positive Newman's sign and complains of RUQ pain. Findings consistent with clinical cholecystitis. May benefit from HIDA scan. 2. He has persistently elevated WBC. Empiric antibiotics 3. Potassium elevated with elevated creatinine. Nephrology assessment may be of benefit. Objective - Vital Signs Vital signs: Vital Signs Temp 98 F 02/12/22 20:12 Pulse 98 02/12/22 20:12 Resp 18 02/12/22 20:12 BP 126/83 02/12/22 20:12 Pulse Ox 97 02/12/22 20:12 FiO2 Intake & Output 11/02/12/22 02/13/22 06:59 18:59 06:59 Intake Total 1725 425 Output Total 600 Balance 1125 425 Weight 74.1 kg Intake: IV 1625 425 Sodium Chloride 0.9% 1, 1625 425 000 ml @ 125 mls/hr IV . Q8H [facility] Rx#:[id number] Intake, IV Titration 100 Amount metroNIDAZOLE-NS PMX 500 100 mg In Saline 1 100ml.bag @ 100 mls/hr IVPB Q8HR [facility] Rx#:[id number] Output: Urine 600 Other: Voiding Method Bedpan # Voids 1 1 # Bowel Movements 1 1 - Labs CBC & Chem 7: 02/12/22 03:29 02/12/22 03:29 Labs: Abnormal Lab Results - Last 24 Hours (Table) 02/12/22 02/12/22 Range/Units 03:29 03:29 WBC 20.5 H (3.8-10.6) k/uL Neutrophils # (Manual) 18.00 H (1.3-7.7) k/uL Metamyelocytes # (Man) 0.62 H (0) k/uL Potassium 5.3 H (3.5-5.1) mmol/L Chloride 117 H (98-107) mmol/L Carbon Dioxide 15 L (22-30) mmol/L BUN 34 H (9-20) mg/dL Creatinine 1.61 H (0.66-1.25) mg/dL Glucose 121 H (74-99) mg/dL Calcium 7.6 L (8.4-10.2) mg/dL Microbiology - Last 24 Hours (Table) 02/10/22 12:50 Blood Culture - Preliminary Blood No Growth after 48 hours 02/10/22 13:00 Blood Culture - Preliminary Blood No Growth after 48 hours
--- NOTE | 2022-02-12 23:04 | P.CONS ---
History of Present Illness - Reason for Consult Consult date: 02/12/22 - History of Present Illness Patient is a 71-year-old male with a past medical history significant for low anterior resection for diverticulitis symptoms 04/15/2021 patient is presenting to the ER yesterday afternoon for evaluation of diffuse abdominal pain that has been getting worse for the last 2 days before presentation to the hospital and the patient also complaining of no bowel movement for few days before that, patient on presentation to the hospital was afebrile and no fever has been recorded subsequently patient did have a white count of 21,000 did have elevated BUN and creatinine elevated lactic acid levels and has been normal blood cultures obtained which are currently pending patient did have a CT of abdominal pelvis that did show diffuse fluid-filled prominent small bowel loops moderate prominence and fecal debris is filled: At the level of segment anastomosis partial obstruction should be considered patient was admitted to the ICU and was started on Zosyn subsequently developing tongue swelling, Zosyn was discontinued patient was started on Rocephin and Flagyl infectious disease was c onsulted for further management of antibiotic therapy patient subsequently did have a multiple bowel movements and did mention improvement in his abdominal pain no nausea no vomiting he denies having any rash and his tongue swelling has resolved Past Medical History Past Medical History: Coronary Artery Disease (CAD), Fibromyalgia, Hyperlipidemia, Hypertension, Myocardial Infarction ([place]), Osteoarthritis (OA), Renal Disease Additional Past Medical History / Comment(s): diverticulitis, constipation, decreased kidney function, chronic back pain, leg pain Last Myocardial Infarction Date:: 2002 History of Any Multi-Drug Resistant Organisms: None Reported Past Surgical History: Adenoidectomy, Bowel Resection, Heart Catheterization With Stent, Tonsillectomy Additional Past Surgical History / Comment(s): L knee surgery, lower anterior resection by Dr. Rush on 12/14/21 Past Anesthesia/Blood Transfusion Reactions: No Reported Reaction Additional Past Anesthesia/Blood Transfusion Reaction / Comm: no hx blood transfusion Date of Last Stent Placement:: 2002 Smoking Status: Former smoker - Past Family History Mother Family Medical History: Hypertension Medications and Allergies Home Medications Medication Instructions Recorded Confirmed Type Aspirin 81 mg PO HS 06/05/17 02/10/22 History Citalopram Hydrobromide [CeleXA] 40 mg PO QAM 06/05/17 02/10/22 History Ergocalciferol (Vitamin D2) 50,000 unit PO FR 06/05/17 02/10/22 History [Vitamin D2] Lisinopril/Hydrochlorothiazide 1 tab PO QAM 06/05/17 02/10/22 History [Zestoretic 20-12.5] Nitroglycerin Sl Tabs [Nitrostat] 0.4 mg SUBLINGUAL Q5M PRN 06/05/17 02/10/22 History Pravastatin Sodium [Pravachol] 20 mg PO HS 06/05/17 02/10/22 History amLODIPine [Norvasc] 10 mg PO HS 06/05/17 02/10/22 History Docusate [Colace] 100 mg PO BID 11/02/21 02/10/22 History Ezetimibe [Zetia] 10 mg PO HS 11/02/21 02/10/22 History HYDROcodone/APAP 10-325MG [[place] 1 tab PO TID 11/02/21 02/10/22 History 10-325] Pantoprazole [Protonix] 40 mg PO QAM 11/02/21 02/10/22 History Cetirizine HCl [Zyrtec] 10 mg PO DAILY 02/10/22 02/10/22 History Cyclobenzaprine [Flexeril] 10 mg PO HS PRN 02/10/22 02/10/22 History Ferrous Gluconate 324 mg PO Q2D 02/10/22 02/10/22 History Vitamin B Complex 1 cap PO DAILY 02/10/22 02/10/22 History Allergies Allergy/AdvReac Type Severity Reaction Status Date / Time beta blockers AdvReac Nausea & Uncoded 02/10/22 15:22 Vomiting, decreased Heart rate to rate of 35 Physical Exam Vitals: Vital Signs Temp Pulse Pulse Resp BP BP Pulse Ox 02/12/22 11:09 97.3 F L 100 18 133/84 97 02/12/22 10:00 93 121/86 96 02/12/22 09:00 98 116/85 96 02/12/22 08:00 97.0 F L 105 H 28 H 114/88 95 02/12/22 07:00 113 H 24 118/79 94 L 02/12/22 06:00 94 24 107/72 95 02/12/22 05:00 94 27 H 118/81 95 02/12/22 04:00 97.4 F L 97 26 H 121/84 94 L 02/12/22 03:00 98 27 H 116/80 92 L 02/12/22 02:00 99 26 H 94/66 02/12/22 01:00 98 28 H 108/71 02/12/22 00:00 98.2 F 100 31 H 95 02/11/22 23:00 96 28 H 104/72 95 02/11/22 22:00 99 29 H 101/73 97 02/11/22 21:00 96 28 H 102/75 95 02/11/22 20:00 98.1 F 95 29 H 102/74 96 02/11/22 19:00 95 21 103/77 96 02/11/22 18:00 92 19 97/71 96 02/11/22 17:00 112 H 22 112/72 95 02/11/22 16:00 98.8 F 93 28 H 107/79 92 L 02/11/22 15:00 98 28 H 108/76 02/11/22 14:00 92 25 H 104/76 02/11/22 13:00 92 27 H 106/82 97 Intake and Output 02/11/22 02/12/22 02/12/22 22:59 06:59 14:59 Intake Total 1162.5 1125 425 Output Total 225 600 Balance 937.5 525 425 Intake: IV 1012.5 1125 425 Piperacillin-Tazobactam 3 12.5 .375 gm In Sodium Chloride 0.9% 100 ml @ 25 mls/hr IVPB Q8HR [facility] Rx# :[id number] Sodium Chloride 0.9% 1, 1000 1125 425 000 ml @ 125 mls/hr IV . Q8H [facility] Rx#:[id number] Intake, IV Titration 150 Amount cefTRIAXone 2 gm In 50 Sodium Chloride 0.9% 50 ml @ 100 mls/hr IVPB Q24HR [facility] Rx#:[id number] metroNIDAZOLE-NS PMX 500 100 mg In Saline 1 100ml.bag @ 100 mls/hr IVPB Q8HR [facility] Rx#:[id number] Output: Urine 225 600 Other: Voiding Method Bedpan # Voids 1 1 # Bowel Movements 1 1 Weight 74.1 kg Results CBC & Chem 7: 02/12/22 03:29 02/12/22 03:29 Labs: Abnormal Lab Results - Last 24 Hours (Table) 02/11/22 02/12/22 02/12/22 Range/Units 07:55 03:29 03:29 WBC 20.5 H (3.8-10.6) k/uL Neutrophils # (Manual) 17.20 H 18.00 H (1.3-7.7) k/uL Monocytes # (Manual) 1.37 H (0-1.0) k/uL Metamyelocytes # (Man) 0.20 H 0.62 H (0) k/uL Myelocytes # (Manual) 0.20 H (0) k/uL Potassium 5.3 H (3.5-5.1) mmol/L Chloride 117 H (98-107) mmol/L Carbon Dioxide 15 L (22-30) mmol/L BUN 34 H (9-20) mg/dL Creatinine 1.61 H (0.66-1.25) mg/dL Glucose 121 H (74-99) mg/dL Calcium 7.6 L (8.4-10.2) mg/dL Microbiology - Last 24 Hours (Table) 02/10/22 12:50 Blood Culture - Preliminary Blood No Growth after 24 hours 02/10/22 13:00 Blood Culture - Preliminary Blood No Growth after 24 hours Assessment and Plan Plan: 1patient with leukocytosis more likely secondary to abdominal source in this patient with concern for possible bowel obstruction partial in this patient subsequently did have a relief of his symptoms after he did have a bowel movement clinic suspicion low for cholecystitis in this patient with normal liver enzymes and gallbladder was reported normal on the CT. 2patient with a questionable tongue swelling with Zosyn in this patient previously tolerated penicillins on the problem. 3patient to continue with Rocephin and Flagyl at this point. We will follow on clinical condition and cultures to further adjust medication if needed Thank you for this consultation will follow this patient along with you Time with Patient: Greater than 30
[2022-02-13] MEDS: metroNIDAZOLE-NS PMX 500 MG in SALINE 1 100ML.BAG IVPB SCH ×3 (00:44→15:32)
[2022-02-13] MEDS: SODIUM CHLORIDE 0.9% 1,000 ML IV SCH ×3 (00:45→15:34)
[2022-02-13] MEDS: PANTOPRAZOLE 40 MG TABLET PO SCH (03:34)
[2022-02-13] MEDS ORDERED: NON FORMULARY DRUG (Vitamin B Complex [Vitamin B Complex] 1 EACH Capsule) PO SCH (09:00)
[2022-02-13] MEDS: ENOXAPARIN 40 MG/0.4 ML SYRINGE SQ SCH ×2 (09:35→09:42)
[2022-02-13] MEDS: HYDROcodone/APAP 10-325MG 1 EACH TAB PO SCH ×3 (09:35→20:36)
[2022-02-13 10:31] LABS: HCT 38.9 % (39.6-50.0); HGB 12.4 g/dL (13.0-17.0); MCH 29.8 pg (27.0-32.0); MCHC 31.9 g/dL (32.0-37.0); MCV 93.5 fL (80.0-97.0); Mean Platelet Volume 10.4 fL (9.5-12.2); NRBC Per 100 WBC 0 /100 WBCS (0.0-0.0); Platelet Count 223 X 10*3/uL (140-440); RBC 4.16 X 10*6/uL (4.40-5.60); RDW 12.6 % (11.5-14.5); WBC 17.75 X 10*3/uL (4.50-10.00)
[2022-02-13 10:49] LABS: African American GFR (CKD) 50.2 (60.0-200.0); Albumin 2.7 g/dL (3.8-4.9); Albumin/Globulin Ratio 1.5 (1.60-3.17); Anion Gap 9.7 mmol/L (10.00-18.00); BUN/Creat Ratio 20.69 Ratio (12.00-20.00); Blood Urea Nitrogen 33.1 mg/dL (9.0-27.0); Carbon Dioxide 17.3 mmol/L (20.0-27.5); Globulin 1.8 g/dL (1.6-3.3); Non-African American GFR(CKD) 43.3 (60.0-200.0); Total Bilirubin 0.2 mg/dL (0.30-1.20); Total Protein 4.5 g/dL (6.2-8.2)
[2022-02-13 11:16] LABS: Basophils % (A) 0.6 %; Eosinophils # (A) 0.01 X 10*3/uL (0.04-0.35); Eosinophils % (A) 0.1 %; Immature Grans, Automated 0.5 %; Lymphocytes # (A) 0.75 X 10*3/uL (0.90-5.00); Lymphocytes % (A) 4.2 %; Monocytes # (A) 0.87 X 10*3/uL (0.20-1.00); Monocytes % (A) 4.9 %; Neutrophils # (A) 15.94 X 10*3/uL (1.80-7.70); Neutrophils % (A) 89.7 %
[2022-02-13 11:17] LABS: Acanthocytes 2+
--- NOTE | 2022-02-13 13:21 | P.PN ---
Subjective Progress Note Date: 02/13/22 CHIEF COMPLAINT: Abdominal pain HISTORY OF PRESENT ILLNESS: The patient is a 71 year old male who presented with abdominal pain and constipation with elevated WBC. He also had been complaining of right upper quadrant abdominal pain. Patient reports feeling better today. His abdominal pain has resolved. He's had multiple liquidy bowel movements. He is having flatus. On he did admit to some nausea this morning. Reports his abdomen is still slightly distended. He is tolerating full liquid diet. Afebrile. Mild tachycardic heart rate 104. WBC 20.5 down to 17.75 hemoglobin 12.4 platelets 223 sodium is 141 potassium is 5.0 creatinine 1.6 total bilirubin 0.2 AST 48 ALT 15 alk phos 108. Abdominal ultrasound with sludge and positive Newman sign. No gallstones or dilated ducts. PHYSICAL EXAM: VITAL SIGNS: Reviewed. GENERAL: Well-developed in no acute distress. HEENT: No sclera icterus. Extraocular movements grossly intact. Moist buccal mucosa. Head is atraumatic, normocephalic. ABDOMEN: Soft. Mildly distended Nontender. NEUROLOGIC: Alert and oriented. Cranial nerves II through XII grossly intact. ASSESSMENT: 1. Abdominal pain with ileus 2. Severe constipation 3. Possible cholecystitis. Right upper quadrant abdominal pain with abdominal ultrasound with sludge and positive Newman's sign 4. Hyperkalemia improved PLAN: -Patient scheduled for laparoscopic cholecystectomy on 02/15/2022 -Continue full liquid diet -Continue supportive care -Continue antibiotics -Continue pain medication as needed -Continue IV fluids -DVT prophylaxis [place] [employer] note has been reviewed by physician. Signing provider agrees with the documented findings, assessment, and plan of care. Objective - Vital Signs Vital signs: Vital Signs Temp 97.6 F 02/13/22 07:52 Pulse 104 H 02/13/22 07:52 Resp 20 02/13/22 07:52 BP 128/83 02/13/22 07:52 Pulse Ox 94 L 02/13/22 07:52 FiO2 Intake & Output 02/12/22 02/13/22 02/13/22 18:59 06:59 18:59 Intake Total 425 Balance 425 Intake: IV 425 Sodium Chloride 0.9% 1, 425 000 ml @ 125 mls/hr IV . Q8H [facility] Rx#:[id number] Other: Voiding Method Bedpan Toilet Toilet # Voids 1 # Bowel Movements 1 - Labs CBC & Chem 7: 02/13/22 06:55 02/13/22 06:55 Labs: Abnormal Lab Results - Last 24 Hours (Table) 02/13/22 02/13/22 Range/Units 06:55 06:55 WBC 17.75 H (4.50-10.00) X 10*3/uL RBC 4.16 L (4.40-5.60) X 10*6/uL Hgb 12.4 L (13.0-17.0) g/dL Hct 38.9 L (39.6-50.0) % MCHC 31.9 L (32.0-37.0) g/dL Immature Gran # 0.08 H (0.00-0.04) X 10*3/uL Neutrophils # 15.94 H (1.80-7.70) X 10*3/uL Lymphocytes # 0.75 L (0.90-5.00) X 10*3/uL Eosinophils # 0.01 L (0.04-0.35) X 10*3/uL Chloride 114 H (96-109) mmol/L Carbon Dioxide 17.3 L (20.0-27.5) mmol/L Anion Gap 9.70 L (10.00-18.00) mmol/L BUN 33.1 H (9.0-27.0) mg/dL Creatinine 1.6 H (0.6-1.5) mg/dL Est GFR (CKD-EPI)AfAm 50.2 L (60.0-200.0) Est GFR (CKD-EPI)NonAf 43.3 L (60.0-200.0) BUN/Creatinine Ratio 20.69 H (12.00-20.00) Ratio Calcium 8.0 L (8.7-10.3) mg/dL Total Bilirubin 0.20 L (0.30-1.20) mg/dL AST 48 H (14-35) U/L Total Protein 4.5 L (6.2-8.2) g/dL Albumin 2.7 L (3.8-4.9) g/dL Albumin/Globulin Ratio 1.50 L (1.60-3.17) g/dL Microbiology - Last 24 Hours (Table) 02/10/22 12:50 Blood Culture - Preliminary Blood No Growth after 48 hours 02/10/22 13:00 Blood Culture - Preliminary Blood No Growth after 48 hours
--- NOTE | 2022-02-13 13:34 | P.PN ---
Subjective Progress Note Date: 02/13/22 Phoenix Amaro, is a 71 year-old male who presented to [facility] emergency room with a chief complaint of abdominal pain, patient describes a diffuse abdominal pain that started 1 day prior to presentation and was worsening, he had nausea and 1 episode of vomiting he was diaphoretic otherwise he denies any fever or chills no headache or dizziness no chest pain no shortness of breath no cough no diarrhea no blood in the stools and no urinary symptoms. Patient has a known history of diverticulitis he was admitted by Dr. Rush on 12/14/2021 and underwent low anterior resection of sigmoid colon. He states that he was doing well until the day prior to this admission. He was evaluated in the emergency room vital examination on presentation revealed a temperature of 95.6 pulse 127 respiration 22 blood pressure 86/57 pulse ox 99% on room air Laboratory data revealed a white blood count of 21.9 hemoglobin 15.8 platelet count 416 sodium 138 potassium 3.8 chloride 105 CO2 26 BUN 23 creatinine 1.7 lactic acid was 4.1 Testing in the emergency room revealed computed tomography scan of the abdomen and pelvis was done in the emergency room and revealed diffuse fluid-filled prominent small bowel loops with more prominence and fecal debris filled colon to the level of the sigmoid anastomosis. Patient was admitted to medical floor for further evaluation and treatment. However blood pressure was low and patient developed worsening tachycardia he was transferred to intensive care unit shortly after admission. On 02/12/2022 patient was seen and examined in the ICU he is alert and oriented 3 in no apparent distress, NG tube has been removed, he is still complaining of some abdominal discomfort, he is complaining of multiple diarrhea bowel movements this morning, otherwise he denies any complaints there is no fever or chills no headache or dizziness no chest pain no shortness of breath no cough no nausea or vomiting and no urinary symptoms, patient will be transferred out of ICU today. Per surgery recommendation will check abdominal ultrasound to due to pain in the right upper quadrant. On 02/13/2022 patient was seen and examined on the medical floor he is alert and oriented 3 in no apparent distress, he is still complaining of abdominal pain and nausea , there is no fever or chills no headache or dizziness no chest pain or shortness of breath no cough, no vomiting he is still having multiple liquid bowel movements daily, no blood in the stools no burning with urination no frequency or urgency no hematuria. There is evidence of sludge in the gallbladder surgical services are following. Objective - Vital Signs Vital signs: Vital Signs Temp 97.6 F 02/13/22 07:52 Pulse 104 H 02/13/22 07:52 Resp 20 02/13/22 07:52 BP 128/83 02/13/22 07:52 Pulse Ox 94 L 02/13/22 07:52 FiO2 Intake & Output 02/12/22 02/13/22 02/13/22 18:59 06:59 18:59 Intake Total 425 Balance 425 Intake: IV 425 Sodium Chloride 0.9% 1, 425 000 ml @ 125 mls/hr IV . Q8H [facility] Rx#:[id number] Other: Voiding Method Bedpan Toilet # Voids 1 # Bowel Movements 1 - Exam In general patient is alert and oriented x 3 in no distress HEENT head normocephalic and atraumatic Neck is supple no JVD no goiter no lymphadenopathy no carotid bruit Chest examination is clear to auscultation no crackles no wheezing Cardiac exam reveals regular heart sounds S1 and S2 no gallops no murmurs Abdomen is soft with mild diffuse tenderness no organomegaly no palpable masses there is hyperactive bowel sounds Extremity exam reveals no edema no cyanosis or clubbing Neurological examination reveals no gross focal deficits - Labs CBC & Chem 7: 02/13/22 06:55 02/13/22 06:55 Labs: Microbiology - Last 24 Hours (Table) 02/10/22 12:50 Blood Culture - Preliminary Blood No Growth after 48 hours 02/10/22 13:00 Blood Culture - Preliminary Blood No Growth after 48 hours Assessment and Plan Plan: Acute small bowel obstruction Dehydration with acute kidney injury Hypotension and tachycardia Recent history of low anterior resection of the sigmoid colon on 12/14/2021 Underlying history of coronary artery disease Underlying history of chronic kidney disease stage III Underlying history of diverticulosis with previous history of acute diverticulitis Underlying history of tobacco use Underlying history of hypertension, patient was maintained on lisinopril, hydrochlorothiazide, amlodipine Underlying history of hyperlipidemia, patient was maintained on Pravachol and Zetia Underlying history of degenerative disc disease with chronic back pain patient was maintained on [place] for pain management Underlying history of gastroesophageal reflux disease Underlying history of depression patient was maintained on Celexa At this time patient is admitted to ICU, under surgical services Critical care consultation requested Nasogastric tube is in Patient was started on IV antibiotic Zosyn in the emergency room Home medication reviewed and are on hold at this time IV fluid boluses were given Labs reordered for this morning For DVT prophylaxis we will use subcu Lovenox For GI prophylaxis we'll use IV Protonix Will follow closely
--- NOTE | 2022-02-13 15:41 | P.PN ---
Subjective Progress Note Date: 02/13/22 This is a 71-year-old white male with history of coronary artery disease, fibromyalgia, dyslipidemia, previous [place], patient was admitted to the hospital yesterday with relatively acute onset of abdominal pain. Patient had one episode of nausea and vomiting, he was also diaphoretic. No fever no chills, no chest pain, no cough, no hemoptysis, denies any hematemesis, denies any melena. Patient is known to have history of diverticulosis, and back on December 14 2021, patient had anterior resection of sigmoid colon. By Dr. Rush. Patient was initially admitted to the medical floor, however last night I was made aware of the patient becoming more tachycardic, relatively hypotensive, and there was a concern about abdominal sepsis. His CT of the abdomen and pelvis showed findings consistent with small bowel obstruction. Patient also had leukocytosis, elevated lactic acid, and positive Hemoccult stool. Considering the possibility of abdominal sepsis associated without small bowel obstruction, I recommended transferred to the ICU. Patient was given fluid boluses, 2 L, his IV fluid was increased, and overnight the patient did not require any pressors. He is empirically on Zosyn for potential abdominal sepsis. Surgical consultation is pending on this patient. This morning the patient seems to be doing well, continues to have some vague abdominal discomfort and mild tenderness. He had many bouts of diarrhea overnight, and he did have positive Hemoccult stools. However overall clinically the patient is significantly improved, and again did not require any pressors, his lactic acid level is coming down. Reevaluated today on 02/12/22, patient seems to be doing much better today. His abdominal symptoms have resolved, patient continues to have intermittent episodes of diarrhea. No nausea no vomiting no abdominal pain. Yesterday the patient developed some tongue swelling, I was notified by the nurse, and I discontinued his Zosyn recommended Flagyl and Rocephin instead. Patient continues to do well today, no further tongue swelling noted. He did receive 1 dose of Solu-Medrol. Patient continues to have leukocytosis with WBC count 20.5, his electrolytes are relatively unremarkable, continues to have low bicarb of 15, renal profile is improving, BUN is 34 creatinine is down to 1.61 from creatinine of 1.90 yesterday. C. difficile screen is negative. Patient was seen by general surgery yesterday, recommended mostly IV fluids, discontinue nasogastric tube, right upper quadrant ultrasound, and I recommended lower endoscopy possibly sometime next week. The patient is seen today 02/13/2022 in follow-up on the regular medical floor. He is currently sitting up in bed. Awake and alert in no acute distress. He is feeling a bit better today. He is maintaining O2 saturations in the 90s on room air. He has normal saline at 125 ML's per hour. His nasogastric tube has been removed. He is having some ongoing issues with some abdominal discomfort. Having some heartburn. Ultrasound of the abdomen revealed some echogenic bile, sludge. Positive Newman sign. No gallstones or dilated ducts. Blood cultures reveal no growth. White count 17.7. Hemoglobin 12.4. Sodium 141. Potassium 5.0. BUN 33. Creatinine 1.6. Glucose 95. AST 48. ALT 15. Alk phos 108. He remains on ceftriaxone and Flagyl. Lovenox for DVT prophylaxis. Remains on full liquid diet. Objective - Vital Signs Vital signs: Vital Signs Temp 97.6 F 02/13/22 07:52 Pulse 104 H 02/13/22 07:52 Resp 20 02/13/22 07:52 BP 128/83 02/13/22 07:52 Pulse Ox 94 L 02/13/22 07:52 FiO2 Intake & Output 02/12/22 02/13/22 02/13/22 18:59 06:59 18:59 Intake Total 425 Balance 425 Intake: IV 425 Sodium Chloride 0.9% 1, 425 000 ml @ 125 mls/hr IV . Q8H [facility] Rx#:[id number] Other: Voiding Method Bedpan Toilet Toilet # Voids 1 # Bowel Movements 1 - Exam GENERAL EXAM: Alert, pleasant 71-year-old male patient, on room air, fairly comfortable in no apparent distress. HEAD: Normocephalic. EYES: Normal reaction of pupils, equal size. NOSE: Clear with pink turbinates. THROAT: No erythema or exudates. NECK: No masses, no JVD. CHEST: No chest wall deformity. LUNGS: Equal air entry with no crackles, wheeze, rhonchi or dullness. CVS: S1 and S2 normal with no audible murmur, regular rhythm. ABDOMEN: Right upper quadrant tenderness. No hepatosplenomegaly, normal bowel sounds, no guarding or rigidity. SPINE: No scoliosis or deformity SKIN: No rashes CENTRAL NERVOUS SYSTEM: No focal deficits, tone is normal in all 4 extremities. EXTREMITIES: There is no peripheral edema. No clubbing, no cyanosis. Peripheral pulses are intact. - Labs CBC & Chem 7: 02/13/22 06:55 02/13/22 06:55 Labs: Abnormal Lab Results - Last 24 Hours (Table) 02/13/22 02/13/22 Range/Units 06:55 06:55 WBC 17.75 H (4.50-10.00) X 10*3/uL RBC 4.16 L (4.40-5.60) X 10*6/uL Hgb 12.4 L (13.0-17.0) g/dL Hct 38.9 L (39.6-50.0) % MCHC 31.9 L (32.0-37.0) g/dL Immature Gran # 0.08 H (0.00-0.04) X 10*3/uL Neutrophils # 15.94 H (1.80-7.70) X 10*3/uL Lymphocytes # 0.75 L (0.90-5.00) X 10*3/uL Eosinophils # 0.01 L (0.04-0.35) X 10*3/uL Chloride 114 H (96-109) mmol/L Carbon Dioxide 17.3 L (20.0-27.5) mmol/L Anion Gap 9.70 L (10.00-18.00) mmol/L BUN 33.1 H (9.0-27.0) mg/dL Creatinine 1.6 H (0.6-1.5) mg/dL Est GFR (CKD-EPI)AfAm 50.2 L (60.0-200.0) Est GFR (CKD-EPI)NonAf 43.3 L (60.0-200.0) BUN/Creatinine Ratio 20.69 H (12.00-20.00) Ratio Calcium 8.0 L (8.7-10.3) mg/dL Total Bilirubin 0.20 L (0.30-1.20) mg/dL AST 48 H (14-35) U/L Total Protein 4.5 L (6.2-8.2) g/dL Albumin 2.7 L (3.8-4.9) g/dL Albumin/Globulin Ratio 1.50 L (1.60-3.17) g/dL Microbiology - Last 24 Hours (Table) 02/10/22 12:50 Blood Culture - Preliminary Blood No Growth after 48 hours 02/10/22 13:00 Blood Culture - Preliminary Blood No Growth after 48 hours Assessment and Plan Assessment: Acute partial small bowel obstruction ML resolving NG tube is out, tolerating clear liquids Possible abdominal sepsis, ultrasound the abdomen shows evidence of sludge and positive Newman sign. Plan is for laparoscopic cholecystectomy on 02/15/2022 Recent history of low anterior sigmoid resection. History of diverticulosis. Coronary arteriosclerosis. Dyslipidemia. Chronic kidney disease stage III. Benign essential hypertension. Degenerative joint disease. History of depression. Plan: The patient was seen and evaluated Medications and labs reviewed Currently stable and on room air Still with residual right upper quadrant abdominal discomfort Plan is for laparoscopic cholecystectomy on 02/15/2022 Tolerating clear liquids for now Add incentive spirometer We'll continue to follow I have personally seen and examined the patient, performed the documentation and the assessment and plan as written. Number of minutes spent on the visit: 10.
[2022-02-13] MEDS: EZETIMIBE 10 MG TAB PO SCH (20:36)
[2022-02-13] MEDS: PRAVASTATIN SODIUM 20 MG TAB PO SCH (20:36)
[2022-02-13] MEDS: ASPIRIN 81 MG PO SCH (20:36)
[2022-02-14] MEDS: SODIUM CHLORIDE 0.9% 1,000 ML IV SCH ×4 (00:45→23:53)
[2022-02-14] MEDS: metroNIDAZOLE-NS PMX 500 MG in SALINE 1 100ML.BAG IVPB SCH ×4 (00:49→23:53)
[2022-02-14] MEDS: MORPHINE SULFATE 4 MG/ML SYRINGE IV PRN ×2 (00:52→23:58)
[2022-02-14 09:27] LABS: Basophils # (A) 0.05 X 10*3/uL (0.00-0.10); Basophils % (A) 0.3 %; Eosinophils # (A) 0.26 X 10*3/uL (0.04-0.35); Eosinophils % (A) 1.6 %; HCT 36.2 % (39.6-50.0); HGB 11.6 g/dL (13.0-17.0); Immature Grans, Automated 0.9 %; Lymphocytes % (A) 6.6 %; MCV 93.5 fL (80.0-97.0); Monocytes # (A) 1.07 X 10*3/uL (0.20-1.00); Monocytes % (A) 6.5 %; NRBC Per 100 WBC 0 /100 WBCS (0.0-0.0); Neutrophils # (A) 13.92 X 10*3/uL (1.80-7.70); Neutrophils % (A) 84.1 %; Platelet Count 204 X 10*3/uL (140-440); RBC 3.87 X 10*6/uL (4.40-5.60); RDW 12.8 % (11.5-14.5); WBC 16.55 X 10*3/uL (4.50-10.00)
[2022-02-14 09:40] LABS: African American GFR (CKD) 64.5 (60.0-200.0); Albumin 2.4 g/dL (3.8-4.9); Albumin/Globulin Ratio 1.6 (1.60-3.17); Anion Gap 7.1 mmol/L (10.00-18.00); BUN/Creat Ratio 19.54 Ratio (12.00-20.00); Blood Urea Nitrogen 25.4 mg/dL (9.0-27.0); Calcium 7.7 mg/dL (8.7-10.3); Carbon Dioxide 17.9 mmol/L (20.0-27.5); Globulin 1.5 g/dL (1.6-3.3); Non-African American GFR(CKD) 55.7 (60.0-200.0); Potassium 4.2 mmol/L (3.5-5.5); Total Bilirubin 0.3 mg/dL (0.30-1.20); Total Protein 3.9 g/dL (6.2-8.2)
[2022-02-14] MEDS: PANTOPRAZOLE 40 MG TABLET PO SCH (09:41)
[2022-02-14] MEDS: HYDROcodone/APAP 10-325MG 1 EACH TAB PO SCH ×3 (09:41→21:12)
[2022-02-14] MEDS: ENOXAPARIN 40 MG/0.4 ML SYRINGE SQ SCH (10:04)
--- NOTE | 2022-02-14 11:47 | P.PN ---
Subjective Progress Note Date: 02/14/22 This is a 71-year-old white male with history of coronary artery disease, fibromyalgia, dyslipidemia, previous [place], patient was admitted to the hospital yesterday with relatively acute onset of abdominal pain. Patient had one episode of nausea and vomiting, he was also diaphoretic. No fever no chills, no chest pain, no cough, no hemoptysis, denies any hematemesis, denies any melena. Patient is known to have history of diverticulosis, and back on December 14 2021, patient had anterior resection of sigmoid colon. By Dr. Rush. Patient was initially admitted to the medical floor, however last night I was made aware of the patient becoming more tachycardic, relatively hypotensive, and there was a concern about abdominal sepsis. His CT of the abdomen and pelvis showed findings consistent with small bowel obstruction. Patient also had leukocytosis, elevated lactic acid, and positive Hemoccult stool. Considering the possibility of abdominal sepsis associated without small bowel obstruction, I recommended transferred to the ICU. Patient was given fluid boluses, 2 L, his IV fluid was increased, and overnight the patient did not require any pressors. He is empirically on Zosyn for potential abdominal sepsis. Surgical consultation is pending on this patient. This morning the patient seems to be doing well, continues to have some vague abdominal discomfort and mild tenderness. He had many bouts of diarrhea overnight, and he did have positive Hemoccult stools. However overall clinically the patient is significantly improved, and again did not require any pressors, his lactic acid level is coming down. Reevaluated today on 02/12/22, patient seems to be doing much better today. His abdominal symptoms have resolved, patient continues to have intermittent episodes of diarrhea. No nausea no vomiting no abdominal pain. Yesterday the patient developed some tongue swelling, I was notified by the nurse, and I discontinued his Zosyn recommended Flagyl and Rocephin instead. Patient continues to do well today, no further tongue swelling noted. He did receive 1 dose of Solu-Medrol. Patient continues to have leukocytosis with WBC count 20.5, his electrolytes are relatively unremarkable, continues to have low bicarb of 15, renal profile is improving, BUN is 34 creatinine is down to 1.61 from creatinine of 1.90 yesterday. C. difficile screen is negative. Patient was seen by general surgery yesterday, recommended mostly IV fluids, discontinue nasogastric tube, right upper quadrant ultrasound, and I recommended lower endoscopy possibly sometime next week. The patient is seen today 02/13/2022 in follow-up on the regular medical floor. He is currently sitting up in bed. Awake and alert in no acute distress. He is feeling a bit better today. He is maintaining O2 saturations in the 90s on room air. He has normal saline at 125 ML's per hour. His nasogastric tube has been removed. He is having some ongoing issues with some abdominal discomfort. Having some heartburn. Ultrasound of the abdomen revealed some echogenic bile, sludge. Positive Newman sign. No gallstones or dilated ducts. Blood cultures reveal no growth. White count 17.7. Hemoglobin 12.4. Sodium 141. Potassium 5.0. BUN 33. Creatinine 1.6. Glucose 95. AST 48. ALT 15. Alk phos 108. He remains on ceftriaxone and Flagyl. Lovenox for DVT prophylaxis. Remains on full liquid diet. The patient is seen today 02/14/2022 in follow-up on the regular medical floor. He is currently sitting up in bed. Awake and alert in no acute distress. Maintaining good O2 saturations in the 90s on room air. He has normal saline at 125 ML's per hour. Blood cultures reveal no growth. White count 16.5. Hemoglobin 11.6. Sodium 139. Potassium 4.2. BUN 25. Creatinine 1.3. He remains on ceftriaxone and Flagyl. Objective - Vital Signs Vital signs: Vital Signs Temp 97.4 F L 02/14/22 08:00 Pulse 94 02/14/22 08:00 Resp 19 02/14/22 08:00 BP 144/87 02/14/22 08:00 Pulse Ox 97 02/14/22 08:00 FiO2 Intake & Output 02/13/22 02/14/22 02/14/22 18:59 06:59 18:59 Other: Voiding Method Toilet - Exam GENERAL EXAM: Alert, 71-year-old male patient, on room air, fairly comfortable in no apparent distress. HEAD: Normocephalic. EYES: Normal reaction of pupils, equal size. NOSE: Clear with pink turbinates. THROAT: No erythema or exudates. NECK: No masses, no JVD. CHEST: No chest wall deformity. LUNGS: Equal air entry with no crackles, wheeze, rhonchi or dullness. CVS: S1 and S2 normal with no audible murmur, regular rhythm. ABDOMEN: Right upper quadrant tenderness. No hepatosplenomegaly, normal bowel sounds, no guarding or rigidity. SPINE: No scoliosis or deformity SKIN: No rashes CENTRAL NERVOUS SYSTEM: No focal deficits, tone is normal in all 4 extremities. EXTREMITIES: There is no peripheral edema. No clubbing, no cyanosis. Periphe ral pulses are intact. - Labs CBC & Chem 7: 02/14/22 06:05 02/14/22 06:05 Labs: Abnormal Lab Results - Last 24 Hours (Table) 02/14/22 02/14/22 Range/Units 06:05 06:05 WBC 16.55 H (4.50-10.00) X 10*3/uL RBC 3.87 L (4.40-5.60) X 10*6/uL Hgb 11.6 L (13.0-17.0) g/dL Hct 36.2 L (39.6-50.0) % Immature Gran # 0.15 H (0.00-0.04) X 10*3/uL Neutrophils # 13.92 H (1.80-7.70) X 10*3/uL Monocytes # 1.07 H (0.20-1.00) X 10*3/uL Chloride 114 H (96-109) mmol/L Carbon Dioxide 17.9 L (20.0-27.5) mmol/L Anion Gap 7.10 L (10.00-18.00) mmol/L Est GFR (CKD-EPI)NonAf 55.7 L (60.0-200.0) Calcium 7.7 L (8.7-10.3) mg/dL AST 46 H (14-35) U/L Total Protein 3.9 L (6.2-8.2) g/dL Albumin 2.4 L (3.8-4.9) g/dL Globulin 1.5 L (1.6-3.3) g/dL Microbiology - Last 24 Hours (Table) 02/10/22 13:00 Blood Culture - Preliminary Blood No Growth after 72 hours 02/10/22 12:50 Blood Culture - Preliminary Blood No Growth after 72 hours Assessment and Plan Assessment: Acute partial small bowel obstruction ML resolving NG tube is out, tolerating clear liquids Possible abdominal sepsis, ultrasound the abdomen shows evidence of sludge and positive Newman sign. Plan is for laparoscopic cholecystectomy on 02/15/2022 Recent history of low anterior sigmoid resection. History of diverticulosis. Coronary arteriosclerosis. Dyslipidemia. Chronic kidney disease stage III. Benign essential hypertension. Degenerative joint disease. History of depression. Plan: The patient was seen and evaluated Medications and labs reviewed Remains on ceftriaxone and Flagyl Currently stable and on room air Tolerating full liquids Continue incentive spirometer We'll continue to follow I have personally seen and examined the patient, performed the documentation and the assessment and plan as written. Number of minutes spent on the visit: 10.
--- NOTE | 2022-02-14 12:10 | CDI ---
Documentation Clarification Form Date: 02/14/2022 11:35:44 AM From: Valentina Chin RN CCDS Admit Date: 02/10/2022 03:48:00 PM Patient Name: Phoenix Amaro Visit Number: [id number] Discharge Date: ATTENTION: The Clinical Documentation Specialists (CDI) and [facility] Coding Staff appreciate your assistance in clarifying documentation. Please respond to the clarification below the line at the bottom and electronically sign. The CDI & [facility] Coding staff will review the response and follow-up if needed. Please note: Queries are made part of the Legal Health Record. If you have any questions, please contact the author of this message via ITS. Dr. Mark Rush Sepsis is documented H&P, 02/11, but is not noted in subsequent documentation. Clarification is requested. History/Risk Factors: 71-year-old male presents to the ED with abdominal pain diffuse localizing over the right upper quadrant for two days. Recent lower anterior resection for diverticulitis 12/14/2021. Medical History: Renal disease and HTN. H&P, 02/11. Clinical Indicators: H&P, 02/11 Due to sepsis, generalized abdominal pain and severe diarrhea, patient is admitted. Patient triggered sepsis protocol was transferred to the intensive care unit. Carpet Jack Note, 02/12: Possible abdominal sepsis VSS, 02/10 : B/P 86/57, HR 127, Temp 95.6, RR 22, SpO2 99% room air LABS, 02/10: Wbc 21.9; Neutrophils 16.8; Lactic acid 3.4 US Abd, 02/12: Gallbladder, sludge. Evidence for sonographic Jackson sign: Yes. There is some echogenic bile. Treatment: Fluids: 02/10 0.9NS 1L bolus x 3 ; 02/10 0.9NS 1400mls x 1; 02/10 0.9NS 125cc/hr Antibiotics: 02/10 Zosyn IVPB x 1; 02/11 02/11 Zosyn IVPB Q8HR discontinued; 02/11 Ceftriaxone IVPB Q24HR; 02/11 Metronidazole IVPB Q8HR Please clarify if the Sepsis is: [ xx ] Sepsis confirmed, remains under treatment [ ] Sepsis confirmed, resolved [ ] Sepsis ruled out [ ] Other condition, please specify [ ] Unable to determine (Template Last Revised: May 2020) MTDD
--- NOTE | 2022-02-14 12:26 | P.PN ---
Subjective Progress Note Date: 02/14/22 CHIEF COMPLAINT: Abdominal pain HISTORY OF PRESENT ILLNESS: The patient is a 71 year old male who presented with abdominal pain and constipation with elevated WBC. He also had been complaining of right upper quadrant abdominal pain. Patient reports having bowel movements. He still has some right upper quadrant pain with nausea. He's currently on a full liquid diet. Afebrile. Heart rate 102. White count trending down from 17-16.55 hemoglobin 11.6 sodium was 139 potassium 4.2 creatinine down to 1.3 total bilirubin 0.3 AST 46 ALT 17 Patient seen and examined with Dr. Shearer PHYSICAL EXAM: VITAL SIGNS: Reviewed. GENERAL: Well-developed in no acute distress. HEENT: No sclera icterus. Extraocular movements grossly intact. Moist buccal mucosa. Head is atraumatic, normocephalic. ABDOMEN: Soft. Nondistended. Right upper quadrant tenderness NEUROLOGIC: Alert and oriented. Cranial nerves II through XII grossly intact. ASSESSMENT: 1. Abdominal pain with ileus 2. Severe constipation 3. Cholecystitis. Right upper quadrant abdominal pain with abdominal ultrasound with sludge and positive Newman's sign 4. Hyperkalemia improved PLAN: -Patient scheduled for laparoscopic cholecystectomy on 02/15/2022 -Nothing by mouth after midnight -Continue full liquid diet for today -Continue supportive care -Continue antibiotics -Continue pain medication as needed -Continue IV fluids -DVT prophylaxis [facility] Associate Professor Of Pathology note has been reviewed by physician. Signing provider agrees with the documented findings, assessment, and plan of care. Objective - Vital Signs Vital signs: Vital Signs Temp 97.4 F L 02/14/22 08:00 Pulse 94 02/14/22 08:00 Resp 19 02/14/22 08:00 BP 144/87 02/14/22 08:00 Pulse Ox 97 02/14/22 08:00 FiO2 Intake & Output 02/13/22 02/14/22 02/14/22 18:59 06:59 18:59 Other: Voiding Method Toilet - Labs CBC & Chem 7: 02/14/22 06:05 02/14/22 06:05 Labs: Abnormal Lab Results - Last 24 Hours (Table) 02/14/22 02/14/22 Range/Units 06:05 06:05 WBC 16.55 H (4.50-10.00) X 10*3/uL RBC 3.87 L (4.40-5.60) X 10*6/uL Hgb 11.6 L (13.0-17.0) g/dL Hct 36.2 L (39.6-50.0) % Immature Gran # 0.15 H (0.00-0.04) X 10*3/uL Neutrophils # 13.92 H (1.80-7.70) X 10*3/uL Monocytes # 1.07 H (0.20-1.00) X 10*3/uL Chloride 114 H (96-109) mmol/L Carbon Dioxide 17.9 L (20.0-27.5) mmol/L Anion Gap 7.10 L (10.00-18.00) mmol/L Est GFR (CKD-EPI)NonAf 55.7 L (60.0-200.0) Calcium 7.7 L (8.7-10.3) mg/dL AST 46 H (14-35) U/L Total Protein 3.9 L (6.2-8.2) g/dL Albumin 2.4 L (3.8-4.9) g/dL Globulin 1.5 L (1.6-3.3) g/dL Microbiology - Last 24 Hours (Table) 02/10/22 13:00 Blood Culture - Preliminary Blood No Growth after 72 hours 02/10/22 12:50 Blood Culture - Preliminary Blood No Growth after 72 hours
--- NOTE | 2022-02-14 17:58 | P.PN ---
Subjective Progress Note Date: 02/14/22 Phoenix Amaro, is a 71 year-old male who presented to [facility] emergency room with a chief complaint of abdominal pain, patient describes a diffuse abdominal pain that started 1 day prior to presentation and was worsening, he had nausea and 1 episode of vomiting he was diaphoretic otherwise he denies any fever or chills no headache or dizziness no chest pain no shortness of breath no cough no diarrhea no blood in the stools and no urinary symptoms. Patient has a known history of diverticulitis he was admitted by Dr. Rush on 12/14/2021 and underwent low anterior resection of sigmoid colon. He states that he was doing well until the day prior to this admission. He was evaluated in the emergency room vital examination on presentation revealed a temperature of 95.6 pulse 127 respiration 22 blood pressure 86/57 pulse ox 99% on room air Laboratory data revealed a white blood count of 21.9 hemoglobin 15.8 platelet count 416 sodium 138 potassium 3.8 chloride 105 CO2 26 BUN 23 creatinine 1.7 lactic acid was 4.1 Testing in the emergency room revealed computed tomography scan of the abdomen and pelvis was done in the emergency room and revealed diffuse fluid-filled prominent small bowel loops with more prominence and fecal debris filled colon to the level of the sigmoid anastomosis. Patient was admitted to medical floor for further evaluation and treatment. However blood pressure was low and patient developed worsening tachycardia he was transferred to intensive care unit shortly after admission. On 02/12/2022 patient was seen and examined in the ICU he is alert and oriented 3 in no apparent distress, NG tube has been removed, he is still complaining of some abdominal discomfort, he is complaining of multiple diarrhea bowel movements this morning, otherwise he denies any complaints there is no fever or chills no headache or dizziness no chest pain no shortness of breath no cough no nausea or vomiting and no urinary symptoms, patient will be transferred out of ICU today. Per surgery recommendation will check abdominal ultrasound to due to pain in the right upper quadrant. On 02/13/2022 patient was seen and examined on the medical floor he is alert and oriented 3 in no apparent distress, he is still complaining of abdominal pain and nausea , there is no fever or chills no headache or dizziness no chest pain or shortness of breath no cough, no vomiting he is still having multiple liquid bowel movements daily, no blood in the stools no burning with urination no frequency or urgency no hematuria. There is evidence of sludge in the gallbladder surgical services are following. On 02/13/2022 patient was seen and examined on the medical floor he is alert and oriented 3, he is still complaining of abdominal pain and nausea , there is no fever or chills no headache or dizziness no chest pain or shortness of breath no cough, no vomiting he is still having multiple liquid bowel movements daily, no blood in the stools no burning with urination no frequency or urgency no hematuria. There is evidence of sludge in the gallbladder surgical services are following. Patient is scheduled for laparoscopic cholecystectomy tomorrow Objective - Vital Signs Vital signs: Vital Signs Temp 97.4 F L 02/14/22 08:00 Pulse 94 02/14/22 08:00 Resp 19 02/14/22 08:00 BP 144/87 02/14/22 08:00 Pulse Ox 97 02/14/22 08:00 FiO2 Intake & Output 02/13/22 02/14/22 02/14/22 18:59 06:59 18:59 Other: Voiding Method Toilet - Exam In general patient is alert and oriented x 3 in no distress HEENT head normocephalic and atraumatic Neck is supple no JVD no goiter no lymphadenopathy no carotid bruit Chest examination is clear to auscultation no crackles no wheezing Cardiac exam reveals regular heart sounds S1 and S2 no gallops no murmurs Abdomen is soft with mild diffuse tenderness no organomegaly no palpable masses there is hyperactive bowel sounds Extremity exam reveals no edema no cyanosis or clubbing Neurological examination reveals no gross focal deficits - Labs CBC & Chem 7: 02/14/22 06:05 02/14/22 06:05 Labs: Abnormal Lab Results - Last 24 Hours (Table) 02/13/22 02/13/22 Range/Units 06:55 06:55 WBC 17.75 H (4.50-10.00) X 10*3/uL RBC 4.16 L (4.40-5.60) X 10*6/uL Hgb 12.4 L (13.0-17.0) g/dL Hct 38.9 L (39.6-50.0) % MCHC 31.9 L (32.0-37.0) g/dL Immature Gran # 0.08 H (0.00-0.04) X 10*3/uL Neutrophils # 15.94 H (1.80-7.70) X 10*3/uL Lymphocytes # 0.75 L (0.90-5.00) X 10*3/uL Eosinophils # 0.01 L (0.04-0.35) X 10*3/uL Chloride 114 H (96-109) mmol/L Carbon Dioxide 17.3 L (20.0-27.5) mmol/L Anion Gap 9.70 L (10.00-18.00) mmol/L BUN 33.1 H (9.0-27.0) mg/dL Creatinine 1.6 H (0.6-1.5) mg/dL Est GFR (CKD-EPI)AfAm 50.2 L (60.0-200.0) Est GFR (CKD-EPI)NonAf 43.3 L (60.0-200.0) BUN/Creatinine Ratio 20.69 H (12.00-20.00) Ratio Calcium 8.0 L (8.7-10.3) mg/dL Total Bilirubin 0.20 L (0.30-1.20) mg/dL AST 48 H (14-35) U/L Total Protein 4.5 L (6.2-8.2) g/dL Albumin 2.7 L (3.8-4.9) g/dL Albumin/Globulin Ratio 1.50 L (1.60-3.17) g/dL Microbiology - Last 24 Hours (Table) 02/10/22 13:00 Blood Culture - Preliminary Blood No Growth after 72 hours 02/10/22 12:50 Blood Culture - Preliminary Blood No Growth after 72 hours Assessment and Plan Plan: Acute small bowel obstruction Dehydration with acute kidney injury Hypotension and tachycardia Recent history of low anterior resection of the sigmoid colon on 12/14/2021 Underlying history of coronary artery disease Underlying history of chronic kidney disease stage III Underlying history of diverticulosis with previous history of acute d iverticulitis Underlying history of tobacco use Underlying history of hypertension, patient was maintained on lisinopril, hydrochlorothiazide, amlodipine Underlying history of hyperlipidemia, patient was maintained on Pravachol and Zetia Underlying history of degenerative disc disease with chronic back pain patient was maintained on Tolna for pain management Underlying history of gastroesophageal reflux disease Underlying history of depression patient was maintained on Celexa At this time patient is admitted to ICU, under surgical services Critical care consultation requested Nasogastric tube is in Patient was started on IV antibiotic Zosyn in the emergency room Home medication reviewed and are on hold at this time IV fluid boluses were given Labs reordered for this morning For DVT prophylaxis we will use subcu Lovenox For GI prophylaxis we'll use IV Protonix Will follow closely
[2022-02-14] MEDS: PRAVASTATIN SODIUM 20 MG TAB PO SCH (21:12)
[2022-02-14] MEDS: ASPIRIN 81 MG PO SCH (21:12)
[2022-02-14] MEDS: EZETIMIBE 10 MG TAB PO SCH (21:12)
[2022-02-15] MEDS: HYDROcodone/APAP 10-325MG 1 EACH TAB PO SCH ×3 (08:13→18:52)
[2022-02-15] MEDS: metroNIDAZOLE-NS PMX 500 MG in SALINE 1 100ML.BAG IVPB SCH ×2 (08:14→17:00)
[2022-02-15] MEDS: PANTOPRAZOLE 40 MG TABLET PO SCH (08:16)
[2022-02-15] MEDS: ENOXAPARIN 40 MG/0.4 ML SYRINGE SQ SCH (08:16)
[2022-02-15] MEDS: SODIUM CHLORIDE 0.9% 1,000 ML IV SCH ×2 (08:17→16:02)
[2022-02-15 11:20] LABS: HCT 36.8 % (39.0-53.0); HGB 11.9 gm/dL (13.0-17.5); Hypochromasia Slight; MCH 30.5 pg (25.0-35.0); MCHC 32.2 g/dL (31.0-37.0); MCV 94.8 fL (80.0-100.0); Mean Platelet Volume 8.4; Platelet Count 184 k/uL (150-450); RBC 3.88 m/uL (4.30-5.90); RDW 12.1 % (11.5-15.5); WBC 9.2 k/uL (3.8-10.6)
[2022-02-15 11:29] LABS: African American GFR (CKD) 79 (>60 ml/min/1.73 sqM); Anion Gap 3 mmol/L; Blood Urea Nitrogen 19 mg/dL (9-20); Calcium 7.6 mg/dL (8.4-10.2); Carbon Dioxide 17 mmol/L (22-30); Chloride 117 mmol/L (98-107); Glucose 83 mg/dL (74-99); Non-African American GFR(CKD) 68 (>60 ml/min/1.73 sqM); Potassium 4.6 mmol/L (3.5-5.1); Sodium 137 mmol/L (137-145)
[2022-02-15] MEDS ORDERED: LACTATED RINGERS 1,000 ML IV ONE (13:00)
--- NOTE | 2022-02-15 13:08 | P.PN ---
Subjective Progress Note Date: 02/15/22 This is a 71-year-old white male with history of coronary artery disease, fibromyalgia, dyslipidemia, previous SD, patient was admitted to the hospital yesterday with relatively acute onset of abdominal pain. Patient had one episode of nausea and vomiting, he was also diaphoretic. No fever no chills, no chest pain, no cough, no hemoptysis, denies any hematemesis, denies any melena. Patient is known to have history of diverticulosis, and back on December 14 2021, patient had anterior resection of sigmoid colon. By Dr. Rush. Patient was initially admitted to the medical floor, however last night I was made aware of the patient becoming more tachycardic, relatively hypotensive, and there was a concern about abdominal sepsis. His CT of the abdomen and pelvis showed findings consistent with small bowel obstruction. Patient also had leukocytosis, elevated lactic acid, and positive Hemoccult stool. Considering the possibility of abdominal sepsis associated without small bowel obstruction, I recommended transferred to the ICU. Patient was given fluid boluses, 2 L, his IV fluid was increased, and overnight the patient did not require any pressors. He is empirically on Zosyn for potential abdominal sepsis. Surgical consultation is pending on this patient. This morning the patient seems to be doing well, continues to have some vague abdominal discomfort and mild tenderness. He had many bouts of diarrhea overnight, and he did have positive Hemoccult stools. However overall clinically the patient is significantly improved, and again did not require any pressors, his lactic acid level is coming down. Reevaluated today on 02/12/22, patient seems to be doing much better today. His abdominal symptoms have resolved, patient continues to have intermittent episodes of diarrhea. No nausea no vomiting no abdominal pain. Yesterday the patient developed some tongue swelling, I was notified by the nurse, and I discontinued his Zosyn recommended Flagyl and Rocephin instead. Patient continues to do well today, no further tongue swelling noted. He did receive 1 dose of Solu-Medrol. Patient continues to have leukocytosis with WBC count 20.5, his electrolytes are relatively unremarkable, continues to have low bicarb of 15, renal profile is improving, BUN is 34 creatinine is down to 1.61 from creatinine of 1.90 yesterday. C. difficile screen is negative. Patient was seen by general surgery yesterday, recommended mostly IV fluids, discontinue nasogastric tube, right upper quadrant ultrasound, and I recommended lower endoscopy possibly sometime next week. The patient is seen today 02/13/2022 in follow-up on the regular medical floor. He is currently sitting up in bed. Awake and alert in no acute distress. He is feeling a bit better today. He is maintaining O2 saturations in the 90s on room air. He has normal saline at 125 ML's per hour. His nasogastric tube has been removed. He is having some ongoing issues with some abdominal discomfort. Having some heartburn. Ultrasound of the abdomen revealed some echogenic bile, sludge. Positive Newman sign. No gallstones or dilated ducts. Blood cultures reveal no growth. White count 17.7. Hemoglobin 12.4. Sodium 141. Potassium 5.0. BUN 33. Creatinine 1.6. Glucose 95. AST 48. ALT 15. Alk phos 108. He remains on ceftriaxone and Flagyl. Lovenox for DVT prophylaxis. Remains on full liquid diet. The patient is seen today 02/14/2022 in follow-up on the regular medical floor. He is currently sitting up in bed. Awake and alert in no acute distress. Maintaining good O2 saturations in the 90s on room air. He has normal saline at 125 ML's per hour. Blood cultures reveal no growth. White count 16.5. Hemoglobin 11.6. Sodium 139. Potassium 4.2. BUN 25. Creatinine 1.3. He remains on ceftriaxone and Flagyl. The patient is seen today 02/15/2022 in follow-up on the regular medical floor. Awake and alert in no acute distress. Sitting up at the bedside. Maintaining good O2 saturation in the upper 90s on room air. He's been afebrile. Hemodynamically stable. Blood cultures reveal no growth. White count 9.2. Hemoglobin 811.9. Sodium 137. Potassium 4.6. Bicarb 17. BUN 19. Creatinine 1.10. He is continued on ceftriaxone and Flagyl. The plan is for laparoscopic cholecystectomy today. Objective - Vital Signs Vital signs: Vital Signs Temp 98.7 F 02/15/22 12:45 Pulse 88 02/15/22 12:45 Resp 16 02/15/22 12:45 BP 146/87 02/15/22 12:45 Pulse Ox 98 02/15/22 12:45 FiO2 Intake & Output 02/14/22 02/15/22 02/15/22 18:59 06:59 18:59 Output Total 200 Balance -200 Output: Stool 200 Other: Voiding Method Toilet Toilet Bedside Commode Bedside Commode - Exam GENERAL EXAM: Alert, very pleasant 71-year-old male patient, on room air, comfortable in no apparent distress. HEAD: Normocephalic. EYES: Normal reaction of pupils, equal size. NOSE: Clear with pink turbinates. THROAT: No erythema or exudates. NECK: No masses, no JVD. CHEST: No chest wall deformity. LUNGS: Equal air entry with no crackles, wheeze, rhonchi or dullness. CVS: S1 and S2 normal with no audible murmur, regular rhythm. ABDOMEN: Right upper quadrant tenderness. No hepatosplenomegaly, normal bowel sounds, no guarding or rigidity. SPINE: No scoliosis or deformity SKIN: No rashes CENTRAL NERVOUS SYSTEM: No focal deficits, tone is normal in all 4 extremities. EXTREMITIES: There is no peripheral edema. No clubbing, no cyanosis. Perip heral pulses are intact. - Labs CBC & Chem 7: 02/15/22 10:59 02/15/22 10:59 Labs: Abnormal Lab Results - Last 24 Hours (Table) 02/15/22 02/15/22 Range/Units 10:59 10:59 RBC 3.88 L (4.30-5.90) m/uL Hgb 11.9 L (13.0-17.5) gm/dL Hct 36.8 L (39.0-53.0) % Chloride 117 H (98-107) mmol/L Carbon Dioxide 17 L (22-30) mmol/L Calcium 7.6 L (8.4-10.2) mg/dL Microbiology - Last 24 Hours (Table) 02/10/22 13:00 Blood Culture - Preliminary Blood No Growth after 96 hours 02/10/22 12:50 Blood Culture - Preliminary Blood No Growth after 96 hours Assessment and Plan Assessment: Acute partial small bowel obstruction ML resolving NG tube is out, tolerating clear liquids Possible abdominal sepsis, ultrasound the abdomen shows evidence of sludge and positive Newman sign. Plan is for laparoscopic cholecystectomy today 02/15/2022 Recent history of low anterior sigmoid resection. History of diverticulosis. Coronary arteriosclerosis. Dyslipidemia. Chronic kidney disease stage III. Benign essential hypertension. Degenerative joint disease. History of depression. Plan: The patient was seen and evaluated Medications and labs reviewed Remains on ceftriaxone and Flagyl Currently stable and on room air Continue incentive spirometer The plan is for laparoscopic cholecystectomy today We'll continue to follow I have personally seen and examined the patient, performed the documentation and the assessment and plan as written. Number of minutes spent on the visit: 10.
[2022-02-15] MEDS ORDERED: ONDANSETRON 4 MG/2 ML VIAL ONE (13:10)
[2022-02-15] MEDS ORDERED: DEXAMETHASONE SOD PHOSPHATE 4 MG/ML 1 ML VIAL IVP ONE (13:16)
[2022-02-15] MEDS ORDERED: ONDANSETRON 4 MG/2 ML VIAL IVP ONE (13:17)
[2022-02-15] MEDS ORDERED: LIDOCAINE 1%-EPI 1:100,000 20 ML VIAL SQ ONE ×2 (13:48→14:20)
[2022-02-15] MEDS ORDERED: PROPOFOL 10 MG/ML 20 ML VIAL IV ONE (14:00)
[2022-02-15] MEDS ORDERED: ROCURONIUM 10 MG/ML (5 ML VIAL) IV ONE (14:00)
[2022-02-15] MEDS ORDERED: NEOSTIGMINE 1 MG/ML 10 ML VIAL ONE (14:00)
[2022-02-15] MEDS ORDERED: GLYCOPYRROLATE 0.2 MG/ML 2 ML VIAL ONE (14:00)
[2022-02-15] MEDS ORDERED: LIDOCAINE 2% INJ 20 MG/ML (2 ML VIAL) ONE (14:00)
[2022-02-15] MEDS ORDERED: MIDAZOLAM 2 MG/2 ML VIAL ONE (14:00)
[2022-02-15] MEDS ORDERED: fentaNYL (PF) 50 MCG/ML 2 ML AMP ONE (14:00)
[2022-02-15] MEDS ORDERED: HYDROmorphone (PF) 1 MG/ML ONE (14:00)
[2022-02-15] MEDS ORDERED: SUCCINYLCHOLINE CHLORIDE 200 MG/10 ML VIAL IV ONE (14:00)
[2022-02-15 14:22] LABS: Basophils # (M) 0.09 k/uL (0-0.2); Eosinophils # (M) 0.09 k/uL (0-0.7); Monocytes # (M) 0.92 k/uL (0-1.0); Neutrophils # (M) 6.99 k/uL (1.3-7.7); Neutrophils % (M) 76 %; Nucleated Red Blood Cells 0 /100 WBC (0-0); Total Cells Counted 100
--- NOTE | 2022-02-15 15:38 | P.OP ---
Date of Procedure: 02/15/22 Preoperative Diagnosis: Cholecystitis Postoperative Diagnosis: Cholecystitis Procedure(s) Performed: Laparoscopic cholecystectomy Anesthesia: TELMA Surgeon: Mark Rush Estimated Blood Loss (ml): 5 Pathology: other (Gallbladder) Condition: stable Disposition: PACU Description of Procedure: The patient was placed on the operating table. The patient received a general endotracheal tube anesthesia. The patients abdomen was prepped and draped in the usual sterile fashion. Through an infraumbilical stab incision, the fascia of the anterior abdominal wall was grasped with a pair of Kochers and then the Veress needle was placed in the peritoneal cavity. Position of the Veress needle was confirmed with positive drop test. The abdomen was then insufflated. After adequate insufflation, the 10 mm trocar was placed in the peritoneal cavity. Following this the laparoscope was placed in the peritoneal cavity. The patient was placed in the head-up, right side up position and then a 5 mm trocar was placed in the right lateral and right subcostal position under direct visualization. A 8 mm trocar was placed in the epigastric position. The gallbladder was grasped in the fundus and infundibulum. Traction on the gallbladder was placed in the lateral and the cephalad positions. The triangle of Calot was visualized.. The cystic duct was bluntly dissected until the union of the cystic duct and common bile duct was seen. A critical view of safety was achieved. The cystic duct was then divided and sealed with the Harmonic scissors. A PDS Endoloop was then placed throughout the cystic duct stump. The cystic artery divided and sealed with the Harmonic scissors. The gallbladder was then removed from the liver bed using Harmonic scissors. The gallbladder was then extracted through the epigastric port site. Operative field was checked for any bleeding spots and Harmonic scissors was used to coagulate the liver bed. The abdomen was irrigated. The trocars were removed. The skin was closed using interrupted 3-0 Vicryl suture. Dermabond dressing were applied. The patient tolerated the procedure well.
[2022-02-15] MEDS ORDERED: HYDROmorphone 0.5 MG/0.5 ML SYRINGE IVP ONE (15:53)
--- NOTE | 2022-02-15 17:52 | P.PN ---
Subjective Progress Note Date: 02/15/22 Phoenix Amaro, is a 71 year-old male who presented to [facility] emergency room with a chief complaint of abdominal pain, patient describes a diffuse abdominal pain that started 1 day prior to presentation and was worsening, he had nausea and 1 episode of vomiting he was diaphoretic otherwise he denies any fever or chills no headache or dizziness no chest pain no shortness of breath no cough no diarrhea no blood in the stools and no urinary symptoms. Patient has a known history of diverticulitis he was admitted by Dr. Rush on 12/14/2021 and underwent low anterior resection of sigmoid colon. He states that he was doing well until the day prior to this admission. He was evaluated in the emergency room vital examination on presentation revealed a temperature of 95.6 pulse 127 respiration 22 blood pressure 86/57 pulse ox 99% on room air Laboratory data revealed a white blood count of 21.9 hemoglobin 15.8 platelet count 416 sodium 138 potassium 3.8 chloride 105 CO2 26 BUN 23 creatinine 1.7 lactic acid was 4.1 Testing in the emergency room revealed computed tomography scan of the abdomen and pelvis was done in the emergency room and revealed diffuse fluid-filled prominent small bowel loops with more prominence and fecal debris filled colon to the level of the sigmoid anastomosis. Patient was admitted to medical floor for further evaluation and treatment. However blood pressure was low and patient developed worsening tachycardia he was transferred to intensive care unit shortly after admission. On 02/12/2022 patient was seen and examined in the ICU he is alert and oriented 3 in no apparent distress, NG tube has been removed, he is still complaining of some abdominal discomfort, he is complaining of multiple diarrhea bowel movements this morning, otherwise he denies any complaints there is no fever or chills no headache or dizziness no chest pain no shortness of breath no cough no nausea or vomiting and no urinary symptoms, patient will be transferred out of ICU today. Per surgery recommendation will check abdominal ultrasound to due to pain in the right upper quadrant. On 02/13/2022 patient was seen and examined on the medical floor he is alert and oriented 3 in no apparent distress, he is still complaining of abdominal pain and nausea , there is no fever or chills no headache or dizziness no chest pain or shortness of breath no cough, no vomiting he is still having multiple liquid bowel movements daily, no blood in the stools no burning with urination no frequency or urgency no hematuria. There is evidence of sludge in the gallbladder surgical services are following. On 02/14/2022 patient was seen and examined on the medical floor he is alert and oriented 3, he is still complaining of abdominal pain and nausea , there is no fever or chills no headache or dizziness no chest pain or shortness of breath no cough, no vomiting he is still having multiple liquid bowel movements daily, no blood in the stools no burning with urination no frequency or urgency no hematuria. There is evidence of sludge in the gallbladder surgical services are following. Patient is scheduled for laparoscopic cholecystectomy tomorrow. On 02/15/2022 patient was seen and examined on the medical floor he is alert and oriented 3 in no apparent distress there is no fever or chills no headache or dizziness no chest pain no shortness of breath no cough no nausea or vomiting no abdominal pain no diarrhea and no urinary symptoms, he is scheduled for l aparoscopic cholecystectomy today will continue to follow Objective - Vital Signs Vital signs: Vital Signs Temp 98.2 F 02/15/22 02:00 Pulse 94 02/15/22 02:00 Resp 15 02/15/22 02:00 BP 129/72 02/15/22 02:00 Pulse Ox 92 L 02/15/22 02:00 FiO2 Intake & Output 02/14/22 02/15/22 02/15/22 18:59 06:59 18:59 Other: Voiding Method Toilet Bedside Commode - Exam In general patient is alert and oriented x 3 in no distress HEENT head normocephalic and atraumatic Neck is supple no JVD no goiter no lymphadenopathy no carotid bruit Chest examination is clear to auscultation no crackles no wheezing Cardiac exam reveals regular heart sounds S1 and S2 no gallops no murmurs Abdomen is soft with mild diffuse tenderness no organomegaly no palpable masses there is hyperactive bowel sounds Extremity exam reveals no edema no cyanosis or clubbing Neurological examination reveals no gross focal deficits - Labs CBC & Chem 7: 02/15/22 10:59 02/15/22 10:59 Labs: Abnormal Lab Results - Last 24 Hours (Table) 02/14/22 02/14/22 Range/Units 06:05 06:05 WBC 16.55 H (4.50-10.00) X 10*3/uL RBC 3.87 L (4.40-5.60) X 10*6/uL Hgb 11.6 L (13.0-17.0) g/dL Hct 36.2 L (39.6-50.0) % Immature Gran # 0.15 H (0.00-0.04) X 10*3/uL Neutrophils # 13.92 H (1.80-7.70) X 10*3/uL Monocytes # 1.07 H (0.20-1.00) X 10*3/uL Chloride 114 H (96-109) mmol/L Carbon Dioxide 17.9 L (20.0-27.5) mmol/L Anion Gap 7.10 L (10.00-18.00) mmol/L Est GFR (CKD-EPI)NonAf 55.7 L (60.0-200.0) Calcium 7.7 L (8.7-10.3) mg/dL AST 46 H (14-35) U/L Total Protein 3.9 L (6.2-8.2) g/dL Albumin 2.4 L (3.8-4.9) g/dL Globulin 1.5 L (1.6-3.3) g/dL Microbiology - Last 24 Hours (Table) 02/10/22 13:00 Blood Culture - Preliminary Blood No Growth after 96 hours 02/10/22 12:50 Blood Culture - Preliminary Blood No Growth after 96 hours Assessment and Plan Plan: Acute small bowel obstruction Dehydration with acute kidney injury Hypotension and tachycardia Recent history of low anterior resection of the sigmoid colon on 12/14/2021 Underlying history of coronary artery disease Underlying history of chronic kidney disease stage III Underlying history of diverticulosis with previous history of acute diverticulitis Underlying history of tobacco use Underlying history of hypertension, patient was maintained on lisinopril, hydrochlorothiazide, amlodipine Underlying history of hyperlipidemia, patient was maintained on Pravachol and Zetia Underlying history of degenerative disc disease with chronic back pain patient was maintained on [place] for pain management Underlying history of gastroesophageal reflux disease Underlying history of depression patient was maintained on Celexa At this time patient is admitted to ICU, under surgical services Critical care consultation requested Nasogastric tube is in Patient was started on IV antibiotic Zosyn in the emergency room Home medication reviewed and are on hold at this time IV fluid boluses were given Labs reordered for this morning For DVT prophylaxis we will use subcu Lovenox For GI prophylaxis we'll use IV Protonix Will follow closely
[2022-02-15] MEDS ORDERED: CALCIUM CARBONATE 500 MG CHEWABLE PO PRN (20:38)
[2022-02-15] MEDS: ASPIRIN 81 MG PO SCH (20:44)
[2022-02-15] MEDS: PRAVASTATIN SODIUM 20 MG TAB PO SCH (20:44)
[2022-02-15] MEDS: EZETIMIBE 10 MG TAB PO SCH (20:44)
[2022-02-15 22:12] LABS: Glucose,Whole Blood 99 mg/dL (70-110)
[2022-02-16] MEDS: SODIUM CHLORIDE 0.9% 1,000 ML IV SCH ×2 (00:01→08:53)
[2022-02-16] MEDS ORDERED: HYDROmorphone 0.5 MG/0.5 ML SYRINGE IVP PRN (08:18)
[2022-02-16] MEDS ORDERED: MIDAZOLAM 2 MG/2 ML VIAL IV PRN (08:18)
[2022-02-16] MEDS ORDERED: ONDANSETRON 4 MG/2 ML VIAL IVP ONE (08:18)
[2022-02-16] MEDS ORDERED: LACTATED RINGERS 1,000 ML IV SCH (08:18)
[2022-02-16] MEDS ORDERED: ACETAMINOPHEN IV (For NPO) 1,000 MG in SALINE 1 100ML.BAG IVPB STA (08:18)
[2022-02-16] MEDS ORDERED: LIDOCAINE 1% (10MG/ML) FOR IV START INTRADERMA PRN (08:18)
[2022-02-16] MEDS ORDERED: HYDROmorphone 1 MG/ML 1 ML SYRINGE IVP PRN (08:18)
[2022-02-16] MEDS ORDERED: DEXAMETHASONE SOD PHOSPHATE 4 MG/ML 1 ML VIAL IV ONE (08:18)
[2022-02-16] MEDS ORDERED: ENOXAPARIN 40 MG/0.4 ML SYRINGE SQ SCH (09:00)
[2022-02-16] MEDS: HYDROcodone/APAP 10-325MG 1 EACH TAB PO SCH ×2 (09:17→15:47)
[2022-02-16] MEDS: PANTOPRAZOLE 40 MG TABLET PO SCH (09:17)
[2022-02-16] MEDS: metroNIDAZOLE-NS PMX 500 MG in SALINE 1 100ML.BAG IVPB SCH ×3 (09:21→15:49)
[2022-02-16 09:36] VITALS: PULSE 89
[2022-02-16 09:49] LABS: ALT 33 U/L (4-49); AST 88 U/L (17-59); African American GFR (CKD) 79 (>60 ml/min/1.73 sqM); Albumin 2.3 g/dL (3.5-5.0); Albumin/Globulin Ratio 1.2; Alkaline Phosphatase 256 U/L (38-126); Anion Gap 4 mmol/L; Blood Urea Nitrogen 19 mg/dL (9-20); Calcium 7.5 mg/dL (8.4-10.2); Carbon Dioxide 18 mmol/L (22-30); Chloride 115 mmol/L (98-107); Glucose 113 mg/dL (74-99); Non-African American GFR(CKD) 68 (>60 ml/min/1.73 sqM); Potassium 4.7 mmol/L (3.5-5.1); Sodium 137 mmol/L (137-145); Total Bilirubin 0.5 mg/dL (0.2-1.3); Total Protein 4.3 g/dL (6.3-8.2)
[2022-02-16 10:17] LABS: HCT 36.6 % (39.0-53.0); HGB 11.6 gm/dL (13.0-17.5); Hypochromasia Slight; MCH 30.1 pg (25.0-35.0); MCHC 31.8 g/dL (31.0-37.0); MCV 94.4 fL (80.0-100.0); Mean Platelet Volume 11.2; Platelet Count 157 k/uL (150-450); RBC 3.88 m/uL (4.30-5.90); RDW 12.4 % (11.5-15.5); WBC 11.9 k/uL (3.8-10.6)
--- NOTE | 2022-02-16 11:39 | P.PN ---
Subjective Progress Note Date: 02/16/22 This is a 71-year-old white male with history of coronary artery disease, fibromyalgia, dyslipidemia, previous [place], patient was admitted to the hospital yesterday with relatively acute onset of abdominal pain. Patient had one episode of nausea and vomiting, he was also diaphoretic. No fever no chills, no chest pain, no cough, no hemoptysis, denies any hematemesis, denies any melena. Patient is known to have history of diverticulosis, and back on December 14 2021, patient had anterior resection of sigmoid colon. By Dr. Rush. Patient was initially admitted to the medical floor, however last night I was made aware of the patient becoming more tachycardic, relatively hypotensive, and there was a concern about abdominal sepsis. His CT of the abdomen and pelvis showed findings consistent with small bowel obstruction. Patient also had leukocytosis, elevated lactic acid, and positive Hemoccult stool. Considering the possibility of abdominal sepsis associated without small bowel obstruction, I recommended transferred to the ICU. Patient was given fluid boluses, 2 L, his IV fluid was increased, and overnight the patient did not require any pressors. He is empirically on Zosyn for potential abdominal sepsis. Surgical consultation is pending on this patient. This morning the patient seems to be doing well, continues to have some vague abdominal discomfort and mild tenderness. He had many bouts of diarrhea overnight, and he did have positive Hemoccult stools. However overall clinically the patient is significantly improved, and again did not require any pressors, his lactic acid level is coming down. Reevaluated today on 02/12/22, patient seems to be doing much better today. His abdominal symptoms have resolved, patient continues to have intermittent episodes of diarrhea. No nausea no vomiting no abdominal pain. Yesterday the patient developed some tongue swelling, I was notified by the nurse, and I discontinued his Zosyn recommended Flagyl and Rocephin instead. Patient continues to do well today, no further tongue swelling noted. He did receive 1 dose of Solu-Medrol. Patient continues to have leukocytosis with WBC count 20.5, his electrolytes are relatively unremarkable, continues to have low bicarb of 15, renal profile is improving, BUN is 34 creatinine is down to 1.61 from creatinine of 1.90 yesterday. C. difficile screen is negative. Patient was seen by general surgery yesterday, recommended mostly IV fluids, discontinue nasogastric tube, right upper quadrant ultrasound, and I recommended lower endoscopy possibly sometime next week. The patient is seen today 02/13/2022 in follow-up on the regular medical floor. He is currently sitting up in bed. Awake and alert in no acute distress. He is feeling a bit better today. He is maintaining O2 saturations in the 90s on room air. He has normal saline at 125 ML's per hour. His nasogastric tube has been removed. He is having some ongoing issues with some abdominal discomfort. Having some heartburn. Ultrasound of the abdomen revealed some echogenic bile, sludge. Positive Newman sign. No gallstones or dilated ducts. Blood cultures reveal no growth. White count 17.7. Hemoglobin 12.4. Sodium 141. Potassium 5.0. BUN 33. Creatinine 1.6. Glucose 95. AST 48. ALT 15. Alk phos 108. He remains on ceftriaxone and Flagyl. Lovenox for DVT prophylaxis. Remains on full liquid diet. The patient is seen today 02/14/2022 in follow-up on the regular medical floor. He is currently sitting up in bed. Awake and alert in no acute distress. Maintaining good O2 saturations in the 90s on room air. He has normal saline at 125 ML's per hour. Blood cultures reveal no growth. White count 16.5. Hemoglobin 11.6. Sodium 139. Potassium 4.2. BUN 25. Creatinine 1.3. He remains on ceftriaxone and Flagyl. The patient is seen today 02/15/2022 in follow-up on the regular medical floor. Awake and alert in no acute distress. Sitting up at the bedside. Maintaining good O2 saturation in the upper 90s on room air. He's been afebrile. Hemodynamically stable. Blood cultures reveal no growth. White count 9.2. Hemoglobin 811.9. Sodium 137. Potassium 4.6. Bicarb 17. BUN 19. Creatinine 1.10. He is continued on ceftriaxone and Flagyl. The plan is for laparoscopic cholecystectomy today. The patient is seen today 02/16/2022 in follow-up on the regular medical floor. He is currently sitting up in bed. Awake and alert in no acute distress. He did undergo laparoscopic cholecystectomy yesterday without significant events. He is anxious to go home. He is continued on ceftriaxone and Flagyl. Lovenox for DVT prophylaxis. He is maintaining good O2 saturations in the mid 90s on 2 L/m per nasal cannula. He is afebrile. Blood cultures reveal no growth. White count 11.9. Hemoglobin 11.6. Sodium 137. Potassium 4.7. BUN 19. Creatinine 1.10. Glucose 113. AST 88. ALT 33. Alk phos 256. Objective - Vital Signs Vital signs: Vital Signs Temp 97.8 F 02/16/22 08:00 Pulse 89 02/16/22 08:00 Resp 17 02/16/22 08:00 BP 171/88 02/16/22 08:00 Pulse Ox 96 02/16/22 08:00 FiO2 Intake & Output 02/15/22 02/16/22 02/16/22 18:59 06:59 18:59 Intake Total 1000 Output Total 210 Balance 790 Intake: IV 1000 Output: Stool 200 Estimated Blood Loss 10 Other: Voiding Method Toilet Toilet Bedside Commode Bedside Commode - Exam GENERAL EXAM: Alert, pleasant 71-year-old male patient, on 2 L nasal cannula, comfortable in no apparent distress. HEAD: Normocephalic. EYES: Normal reaction of pupils, equal size. NOSE: Clear with pink turbinates. THROAT: No erythema or exudates. NECK: No masses, no JVD. CHEST: No chest wall deformity. LUNGS: Equal air entry with no crackles, wheeze, rhonchi or dullness. CVS: S1 and S2 normal with no audible murmur, regular rhythm. ABDOMEN: Surgical sites clean dry and intact. No hepatosplenomegaly, normal bowel sounds, no guarding or rigidity. SPINE: No scoliosis or deformity SKIN: No rashes CENTRAL NERVOUS SYSTEM: No focal deficits, tone is normal in all 4 extremities. EXTREMITIES: There is no peripheral edema. No clubbing, no cyanosis. Perip heral pulses are intact. - Labs CBC & Chem 7: 02/16/22 08:54 02/16/22 08:54 Labs: Abnormal Lab Results - Last 24 Hours (Table) 02/15/22 02/16/22 02/16/22 Range/Units 10:59 08:54 08:54 WBC 11.9 H (3.8-10.6) k/uL RBC 3.88 L 3.88 L (4.30-5.90) m/uL Hgb 11.9 L 11.6 L (13.0-17.5) gm/dL Hct 36.8 L 36.6 L (39.0-53.0) % Chloride 115 H (98-107) mmol/L Carbon Dioxide 18 L (22-30) mmol/L Glucose 113 H (74-99) mg/dL Calcium 7.5 L (8.4-10.2) mg/dL AST 88 H (17-59) U/L Alkaline Phosphatase 256 H (38-126) U/L Total Protein 4.3 L (6.3-8.2) g/dL Albumin 2.3 L (3.5-5.0) g/dL Microbiology - Last 24 Hours (Table) 02/10/22 12:50 Blood Culture - Preliminary Blood No Growth after 120 hours 02/10/22 13:00 Blood Culture - Preliminary Blood No Growth after 120 hours Assessment and Plan Assessment: Acute partial small bowel obstruction, resolving NG tube is out, tolerating clear liquids Possible abdominal sepsis, ultrasound the abdomen shows evidence of sludge and positive Newman sign. Status post laparoscopic cholecystectomy 02/15/2022 Recent history of low anterior sigmoid resection. History of diverticulosis. Coronary arteriosclerosis. Dyslipidemia. Chronic kidney disease stage III. Benign essential hypertension. Degenerative joint disease. History of depression. Plan: The patient was seen and evaluated Medications and labs reviewed Remains on ceftriaxone and Flagyl Currently stable and on room air Continue incentive spirometer Home once cleared by surgical services and medicine We'll continue to follow I have personally seen and examined the patient, performed the documentation and the assessment and plan as written. Number of minutes spent on the visit: 10.
[2022-02-16 13:27] VITALS: BMI 22.8
[2022-02-16 14:47] VITALS: BP 149/83; RESP 16; TEMP 97.6
--- NOTE | 2022-02-16 15:08 | P.DS ---
Providers Date of admission: 02/10/22 15:48 Expected date of discharge: 02/16/22 Attending physician: Mark Up Consults: 02/10/22 17:18 Consult Physician Routine Consulting Provider: Chuckie Rendon Consult Reason/Comments: medical management Do you want consulting provider notified?: Yes 02/10/22 23:11 Consult Physician Stat Consulting Provider: Anais Sibley Consult Reason/Comments: ICU MANAGEMENT Do you want consulting provider notified?: Already Contacted 02/11/22 17:33 Consult Physician Routine Consulting Provider: Aramis Woods Consult Reason/Comments: abx coverage Do you want consulting provider notified?: Yes Primary care physician: Chuckie Rendon [facility] Course: Discharge diagnosis 1. Cholecystitis status post laparoscopic cholecystectomy 2. Ileus resolved 3. Severe constipation 4. Elevated LFTs reactive from surgery Hospital course This is a 71-year-old male who presented with diffuse abdominal pain and right upper quadrant abdominal pain. He had been having constipation. Computed tomography scan pelvis demonstrated diffuse dilation of small bowel and large bowel with moderate fecal matter. Patient's ileus improved. He was having shreyas l movements. Patient abdominal ultrasound showing sludge and positive Newman sign. He had evidence of cholecystitis. He is status post laparoscopic cholecystectomy. Patient is tolerating diet. His pain is controlled. He is up and ambulating. He is afebrile. He is stable for discharge. Please refer to chart for any further details. Patient was seen and examined with Dr. up. Physician Food And Beverage Coordinator note has been reviewed by physician. Signing provider agrees with the documented findings, assessment, and plan of care. Patient Condition at Discharge: Stable Plan - Discharge Summary Discharge Rx Participant: No New Discharge Prescriptions: Continue Ergocalciferol (Vitamin D2) [Vitamin D2] 50,000 unit PO FR Aspirin 81 mg PO HS amLODIPine [Norvasc] 10 mg PO HS Lisinopril/Hydrochlorothiazide [Zestoretic 20-12.5] 1 tab PO QAM Citalopram Hydrobromide [CeleXA] 40 mg PO QAM Nitroglycerin Sl Tabs [Nitrostat] 0.4 mg SUBLINGUAL Q5M PRN PRN Reason: Chest Pain HYDROcodone/APAP 10-325MG [[place] 10-325] 1 tab PO TID Docusate [Colace] 100 mg PO BID Pantoprazole [Protonix] 40 mg PO QAM Vitamin B Complex 1 cap PO DAILY Ferrous Gluconate 324 mg PO Q2D Cyclobenzaprine [Flexeril] 10 mg PO HS PRN PRN Reason: Muscle Spasm Cetirizine HCl [Zyrtec] 10 mg PO DAILY Discontinued Pravastatin Sodium [Pravachol] 20 mg PO HS Ezetimibe [Zetia] 10 mg PO HS Discharge Medication List Aspirin 81 mg PO HS 06/05/17 [History] Citalopram Hydrobromide [CeleXA] 40 mg PO QAM 06/05/17 [History] Ergocalciferol (Vitamin D2) [Vitamin D2] 50,000 unit PO FR 06/05/17 [History] Lisinopril/Hydrochlorothiazide [Zestoretic 20-12.5] 1 tab PO QAM 06/05/17 [History] Nitroglycerin Sl Tabs [Nitrostat] 0.4 mg SUBLINGUAL Q5M PRN 06/05/17 [History] amLODIPine [Norvasc] 10 mg PO HS 06/05/17 [History] Docusate [Colace] 100 mg PO BID 11/02/21 [History] HYDROcodone/APAP 10-325MG [[place] 10-325] 1 tab PO TID 11/02/21 [History] Pantoprazole [Protonix] 40 mg PO QAM 11/02/21 [History] Cetirizine HCl [Zyrtec] 10 mg PO DAILY 02/10/22 [History] Cyclobenzaprine [Flexeril] 10 mg PO HS PRN 02/10/22 [History] Ferrous Gluconate 324 mg PO Q2D 02/10/22 [History] Vitamin B Complex 1 cap PO DAILY 02/10/22 [History] Follow up Appointment(s)/Referral(s): Chuckie Rendon MD [Primary Care Provider] - 1-2 days Mark Up MD [STAFF PHYSICIAN] - 1 Week Activity/Diet/Wound Care/Special Instructions: patient would like flu shot before discharge No driving while taking [place] No lifting over 10 pounds Shower daily. No soaking or tub baths for 2 weeks Very light activity until you are reevaluated at your follow up appointment with your surgeon Hold the Pravachol and Zetia until seen by PCP due to elevated liver enzymes Discharge Disposition: HOME SELF-CARE
[2022-02-16 16:18] LABS: Band Neutrophils % 1 %; Lymphocytes # (M) 1.07 k/uL (1.0-4.8); Monocytes # (M) 1.07 k/uL (0-1.0); Myelocytes # (M) 0.12 k/uL (0); Myelocytes % 1 %; Neutrophils % (M) 82 %; Nucleated Red Blood Cells 0 /100 WBC (0-0); Total Cells Counted 200
[2022-02-16 16:21] LABS: Poikilocytosis (M) Present
--- NOTE | 2022-02-16 18:08 | P.PN ---
Subjective Progress Note Date: 02/16/22 Phoenix Amaro, is a 71 year-old male who presented to [facility] emergency room with a chief complaint of abdominal pain, patient describes a diffuse abdominal pain that started 1 day prior to presentation and was worsening, he had nausea and 1 episode of vomiting he was diaphoretic otherwise he denies any fever or chills no headache or dizziness no chest pain no shortness of breath no cough no diarrhea no blood in the stools and no urinary symptoms. Patient has a known history of diverticulitis he was admitted by Dr. Rush on 12/14/2021 and underwent low anterior resection of sigmoid colon. He states that he was doing well until the day prior to this admission. He was evaluated in the emergency room vital examination on presentation revealed a temperature of 95.6 pulse 127 respiration 22 blood pressure 86/57 pulse ox 99% on room air Laboratory data revealed a white blood count of 21.9 hemoglobin 15.8 platelet count 416 sodium 138 potassium 3.8 chloride 105 CO2 26 BUN 23 creatinine 1.7 lactic acid was 4.1 Testing in the emergency room revealed computed tomography scan of the abdomen and pelvis was done in the emergency room and revealed diffuse fluid-filled prominent small bowel loops with more prominence and fecal debris filled colon to the level of the sigmoid anastomosis. Patient was admitted to medical floor for further evaluation and treatment. However blood pressure was low and patient developed worsening tachycardia he was transferred to intensive care unit shortly after admission. On 02/12/2022 patient was seen and examined in the ICU he is alert and oriented 3 in no apparent distress, NG tube has been removed, he is still complaining of some abdominal discomfort, he is complaining of multiple diarrhea bowel movements this morning, otherwise he denies any complaints there is no fever or chills no headache or dizziness no chest pain no shortness of breath no cough no nausea or vomiting and no urinary symptoms, patient will be transferred out of ICU today. Per surgery recommendation will check abdominal ultrasound to due to pain in the right upper quadrant. On 02/13/2022 patient was seen and examined on the medical floor he is alert and oriented 3 in no apparent distress, he is still complaining of abdominal pain and nausea , there is no fever or chills no headache or dizziness no chest pain or shortness of breath no cough, no vomiting he is still having multiple liquid bowel movements daily, no blood in the stools no burning with urination no frequency or urgency no hematuria. There is evidence of sludge in the gallbladder surgical services are following. On 02/14/2022 patient was seen and examined on the medical floor he is alert and oriented 3, he is still complaining of abdominal pain and nausea , there is no fever or chills no headache or dizziness no chest pain or shortness of breath no cough, no vomiting he is still having multiple liquid bowel movements daily, no blood in the stools no burning with urination no frequency or urgency no hematuria. There is evidence of sludge in the gallbladder surgical services are following. Patient is scheduled for laparoscopic cholecystectomy tomorrow. On 02/15/2022 patient was seen and examined on the medical floor he is alert and oriented 3 in no apparent distress there is no fever or chills no headache or dizziness no chest pain no shortness of breath no cough no nausea or vomiting no abdominal pain no diarrhea and no urinary symptoms, he is scheduled for l aparoscopic cholecystectomy today will continue to follow On 02/16/2022 patient was seen and examined on the medical floor he is alert and oriented 3 in no apparent distress there is no fever or chills no headache or dizziness no chest pain no shortness of breath no cough no nausea or vomiting no abdominal pain no diarrhea and no urinary symptoms. He is stable for discharge today, will follow in the office in one week Objective - Vital Signs Vital signs: Vital Signs Temp 97.6 F 02/16/22 14:00 Pulse 89 02/16/22 14:00 Resp 16 02/16/22 14:00 BP 149/83 02/16/22 14:00 Pulse Ox 97 02/16/22 14:00 FiO2 Intake & Output 02/15/22 02/16/22 02/16/22 18:59 06:59 18:59 Intake Total 1000 Output Total 210 Balance 790 Weight 74.1 kg Intake: IV 1000 Output: Stool 200 Estimated Blood Loss 10 Other: Voiding Method Toilet Toilet Bedside Commode Bedside Commode - Exam In general patient is alert and oriented x 3 in no distress HEENT head normocephalic and atraumatic Neck is supple no JVD no goiter no lymphadenopathy no carotid bruit Chest examination is clear to auscultation no crackles no wheezing Cardiac exam reveals regular heart sounds S1 and S2 no gallops no murmurs Abdomen is soft with mild diffuse tenderness no organomegaly no palpable masses there is hyperactive bowel sounds Extremity exam reveals no edema no cyanosis or clubbing Neurological examination reveals no gross focal deficits - Labs CBC & Chem 7: 02/16/22 08:54 02/16/22 08:54 Labs: Abnormal Lab Results - Last 24 Hours (Table) 02/16/22 02/16/22 Range/Units 08:54 08:54 WBC 11.9 H (3.8-10.6) k/uL RBC 3.88 L (4.30-5.90) m/uL Hgb 11.6 L (13.0-17.5) gm/dL Hct 36.6 L (39.0-53.0) % Chloride 115 H (98-107) mmol/L Carbon Dioxide 18 L (22-30) mmol/L Glucose 113 H (74-99) mg/dL Calcium 7.5 L (8.4-10.2) mg/dL AST 88 H (17-59) U/L Alkaline Phosphatase 256 H (38-126) U/L Total Protein 4.3 L (6.3-8.2) g/dL Albumin 2.3 L (3.5-5.0) g/dL Microbiology - Last 24 Hours (Table) 02/10/22 12:50 Blood Culture - Preliminary Blood No Growth after 120 hours 02/10/22 13:00 Blood Culture - Preliminary Blood No Growth after 120 hours Assessment and Plan Plan: Acute small bowel obstruction Dehydration with acute kidney injury Hypotension and tachycardia Recent history of low anterior resection of the sigmoid colon on 12/14/2021 Underlying history of coronary artery disease Underlying history of chronic kidney disease stage III Underlying history of diverticulosis with previous history of acute diverticulitis Underlying history of tobacco use Underlying history of hypertension, patient was maintained on lisinopril, hydrochlorothiazide, amlodipine Underlying history of hyperlipidemia, patient was maintained on Pravachol and Zetia Underlying history of degenerative disc disease with chronic back pain patient was maintained on [place] for pain management Underlying history of gastroesophageal reflux disease Underlying history of depression patient was maintained on Celexa At this time patient is admitted to ICU, under surgical services Critical care consultation requested Nasogastric tube is in Patient was started on IV antibiotic Zosyn in the emergency room Home medication reviewed and are on hold at this time IV fluid boluses were given Labs reordered for this morning For DVT prophylaxis we will use subcu Lovenox For GI prophylaxis we'll use IV Protonix Will follow closely
== END 2022-02-16 16:44 | disposition home or self-care (01) | DRG 854 ==
LOC: EC 12:58 → 5NMEDONC 15:48 → 2SICU 22:55 → 4SSUR 02-12 10:34
PROVIDERS: ADMIT Surgery; ATTEND Surgery
PROC: 0D9670Z Drainage of Stomach with Drainage Device, Via Natural or Artificial Opening (ICD-10-PCS; 2022-02-10)
PROC: 0FT44ZZ Resection of Gallbladder, Percutaneous Endoscopic Approach (ICD-10-PCS; principal; 2022-02-15 14:35)
DX: A41.9 Sepsis, unspecified organism (principal); E87.20 Acidosis, unspecified; K56.600 Partial intestinal obstruction, unspecified as to cause; N17.9 Acute kidney failure, unspecified; K81.2 Acute cholecystitis with chronic cholecystitis; K56.7 Ileus, unspecified; I12.9 Hypertensive chronic kidney disease with stage 1 through stage 4 chronic kidney disease, or unspecified chronic kidney disease; N18.30 Chronic kidney disease, stage 3 unspecified; F32.A Depression, unspecified; I95.9 Hypotension, unspecified; I25.10 Atherosclerotic heart disease of native coronary artery without angina pectoris; G89.29 Other chronic pain; M54.9 Dorsalgia, unspecified; E78.5 Hyperlipidemia, unspecified; M79.7 Fibromyalgia; R79.89 Other specified abnormal findings of blood chemistry; M19.90 Unspecified osteoarthritis, unspecified site; R74.8 Abnormal levels of other serum enzymes; E86.0 Dehydration; K21.9 Gastro-esophageal reflux disease without esophagitis; E83.52 Hypercalcemia; E87.5 Hyperkalemia; T78.3XXA Angioneurotic edema, initial encounter; T36.0X5A Adverse effect of penicillins, initial encounter; Z87.891 Personal history of nicotine dependence; Z79.82 Long term (current) use of aspirin; Z79.899 Other long term (current) drug therapy; Z79.891 Long term (current) use of opiate analgesic; Z88.8 Allergy status to other drugs, medicaments and biological substances; I25.2 Old myocardial infarction; Z95.5 Presence of coronary angioplasty implant and graft; Z87.19 Personal history of other diseases of the digestive system; Z90.49 Acquired absence of other specified parts of digestive tract
CPT/HCPCS: 36415; 71045; 74177; 76700; 80048; 80053; 82272; 83605; 83735; 85025; 85610; 85730; 87040; 87324; 88304; 93005; 96361; 96365; 96366; 96375; 99285

== ENCOUNTER → 2022-07-19 | Outpatient (CLI) | payer MEDICARE ==
--- NOTE | 2022-07-19 13:23 | CT ---
EXAMINATION TYPE: CT abdomen pelvis w con CT DLP: 488.6 mGycm, Automated exposure control for dose reduction was used. DATE OF EXAM: 07/19/2022 1:10 PM COMPARISON: CT abdomen pelvis most recent from 02/10/2022 . CLINICAL INDICATION:Male, 72 years old with history of K57.32; constipation TECHNIQUE: Standard CT of the abdomen and pelvis following the administration of 70 cc of Isovue 30 0 IV contrast material and oral contrast. Coronal and sagittal reformats were performed. FINDINGS: LOWER CHEST: Unremarkable ABDOMEN LIVER: Unremarkable GALLBLADDER AND BILE DUCTS: The gallbladder is surgically absent. PANCREAS: Unremarkable. SPLEEN: Unremarkable. ADRENAL GLANDS: Unremarkable. KIDNEYS AND URETERS: No evidence of hydronephrosis or renal calculus. The kidneys enhance symmetrical ly without suspicious focal lesion. Contrast is demonstrated within both collecting systems on the de layed phase. PELVIS BLADDER: Unremarkable REPRODUCTIVE: Unremarkable. ABDOMEN & PELVIS STOMACH AND BOWEL: Stomach and duodenum are unremarkable. Post surgical changes with anastomosis in t he rectosigmoid junction. Enteric contrast reaches the descending colon. No significant stool burden. No significant wall thickening or surrounding inflammatory changes. The appendix is within normal li mits. No evidence of bowel obstruction. PERITONEUM: No evidence of pneumoperitoneum or free fluid. VASCULATURE: Moderate atherosclerotic calcifications are present throughout the abdominal aorta and i ts branches. No evidence of aortic aneurysm. MUSCULOSKELETAL: No acute osseous abnormalities. Similar grade 1 anterolisthesis of L5 on S1 with pawan ateral pars defects. Schmorl's node involving the superior endplate of L1 redemonstrated. LYMPH NODES: No gross evidence for lymphadenopathy. SOFT TISSUE/ABDOMINAL WALL: Small epigastric wall fat filled hernia. IMPRESSION: No acute abdominal/pelvic process. No significant stool burden to suggest constipation.
== END | disposition home or self-care (01) ==
LOC: RADCTMAIN 10:50
PROVIDERS: ATTEND Surgery
DX: K57.32 Diverticulitis of large intestine without perforation or abscess without bleeding (principal)
CPT/HCPCS: 82565; 84520; 74177; 36415; Q9967

== ENCOUNTER → 2024-03-18 | Outpatient (CLI) | payer MEDICARE ==
--- NOTE | 2024-03-18 12:42 | CT ---
EXAMINATION TYPE: CT abdomen pelvis wo con CT DLP: 265.9 mGycm, Automated exposure control for dose reduction was used. DATE OF EXAM: 03/18/2024 12:35 PM COMPARISON: CT abdomen pelvis 07/19/2022, 02/10/2022 CLINICAL INDICATION:Male, 73 years old with history of R10.9 MALIGNANT NEOPLASM OF COLON, UNSPECIFIED ; RLQ pain TECHNIQUE: Standard CT of the abdomen and pelvis without IV or oral contrast. Lack of IV or oral co ntrast limits evaluation of solid and hollow organ viscera. Coronal and sagittal reformats were perfo rmed. FINDINGS: LOWER CHEST: Unremarkable ABDOMEN LIVER: Unremarkable noncontrast appearance GALLBLADDER AND BILE DUCTS: The gallbladder is surgically absent. PANCREAS: Unremarkable noncontrast appearance SPLEEN: Unremarkable noncontrast appearance ADRENAL GLANDS: Unremarkable noncontrast appearance. KIDNEYS AND URETERS: No evidence of hydronephrosis. Punctate nonobstructive bilateral renal calculi. PELVIS BLADDER: Incompletely distended but grossly unremarkable. REPRODUCTIVE: Unremarkable. ABDOMEN & PELVIS STOMACH AND BOWEL: Stomach and duodenum are unremarkable. Evaluation of the bowel is limited due to l ack of intravenous and oral contrast. Post surgical changes with anastomosis in the rectosigmoid junc tion. No focal bowel wall thickening at the anastomosis. The appendix is within normal limits. No mikaela dence of bowel obstruction. PERITONEUM: No evidence of pneumoperitoneum or free fluid. VASCULATURE: Moderate atherosclerotic calcifications are present throughout the abdominal aorta and i ts branches. No evidence of aortic aneurysm. Couple pelvic phleboliths. MUSCULOSKELETAL: No acute osseous abnormalities. Similar grade 1 anterolisthesis of L5 on S1 with pawan ateral pars defects. Schmorl's node involving the superior endplate of L1 redemonstrated. LYMPH NODES: No gross evidence for lymphadenopathy. SOFT TISSUE/ABDOMINAL WALL: Unremarkable IMPRESSION: No acute abdominal abdominal/pelvic process or evidence for recurrence/metastatic disease within limi tations of a noncontrast exam. [facility], , 03/18/2024 12:40 PM
== END | disposition home or self-care (01) ==
LOC: RADCTMAIN 12:16
PROVIDERS: ATTEND Internal Medicine
DX: N20.0 Calculus of kidney (principal); I70.0 Atherosclerosis of aorta; Z85.038 Personal history of other malignant neoplasm of large intestine
CPT/HCPCS: 74176

== ENCOUNTER → 2024-07-04 | Outpatient (CLI) | payer MEDICARE ==
[2024-07-04 16:26] LABS: African American GFR (CKD) 60 (>60 ml/min/1.73 sqM); Blood Urea Nitrogen 22 mg/dL (9-20); Non-African American GFR(CKD) 52 (>60 ml/min/1.73 sqM)
--- NOTE | 2024-07-04 21:51 | CT ---
EXAMINATION TYPE: CT chest w con DATE OF EXAM: 07/04/2024 4:59 PM COMPARISON: None. CLINICAL INDICATION: Male, 74 years old with history of R06.02 SOB, Fatigue x6 months. TECHNIQUE: Axial images were obtained at 5 mm thick sections. Reconstructed images are reviewed on [employer] computer in the coronal plane. Contrast used:80ml mL of Isovue 300 with IV Contrast, (none if empty) Oral contrast used: (none if empty) CT DLP: 232.6 mGycm, Automated exposure control for dose reduction was used. FINDINGS: Portion of the thyroid visualized is normal. No suspicious lung nodules or focal infiltrates are present. No enlarged mediastinal or hilar adenopathy is evident. The ascending aorta diameter at the level o f the main pulmonary artery is 3.9 cm. The main pulmonary artery diameter at the bifurcation is 2.7 cm. No significant coronary artery calcifications. Limited CT sections are obtained through the upper abdomen. Abdomen is essentially unremarkable. IMPRESSION: 1. No acute pulmonary process. [facility], , 07/04/2024 9:48 PM
== END | disposition home or self-care (01) ==
LOC: RADCTMAIN 15:40
PROVIDERS: ATTEND Internal Medicine
DX: R06.02 Shortness of breath (principal)
CPT/HCPCS: 82565; 84520; 71260; 36415; Q9967